=== PATIENT | male | born 1960 | race American Indian/Alaskan Native ===

== ENCOUNTER 2018-02-06 05:57 | Day surgery (SDC) | payer OTHER ==
[2018-02-06] MEDS ORDERED: WATER FOR IRRIG STERILE IR ONE (07:08)
[2018-02-06] MEDS ORDERED: WATER FOR IRRIG STERILE ONE (07:08)
--- NOTE | 2018-02-06 07:41 | Anesthesia Consultation ---
Anesthesia Consult and Med Hx Date of service: 02/06/18 - Airway Anesthetic Teeth Evaluation: Good ROM Head & Neck: Adequate Mental/Hyoid Distance: Adequate Mallampati Class: Class IV Intubation Access Assessment: Possibly Difficult - Pulmonary Exam CTA: Yes - Cardiac Exam Anesthetic Concerns: Irregular rhythm. Occasional premature beat. - Pre-Operative Health Status ASA Pre-Surgery Classification: ASA3 Proposed Anesthetic Plan: General - Pulmonary Hx Smoking: Yes Hx Asthma: Yes Hx Sleep Apnea: Yes - Cardiovascular System Hx Hypertension: Yes - Endocrine Hx Non-Insulin Dependent Diabetes: Yes (GX=[id number]) - Other Systems Hx Obesity: Yes (BMI>40) - Additional Comments Anesthesia Medical History Comments: NAC.
--- NOTE | 2018-02-06 07:42 | Anesthesia Day of Surgery ---
Anesthesia Day of Surgery - Day of Surgery Patient Examined: Yes Patient H&P Reviewed: Yes Patient is NPO: Yes Beta Blockers: Yes
[2018-02-06] MEDS ORDERED: DIPRIVAN 10 MG/ML IV ONE ×2 (07:47)
[2018-02-06] MEDS ORDERED: XYLOCAINE 2% INFILTRATI ONE (08:00)
[2018-02-06] MEDS ORDERED: NACL 0.9% 1000 ML 1,000 ML IV SCH (08:00)
--- NOTE | 2018-02-06 08:14 | Short Stay Summary ---
Short Stay Documentation - Allergies and Medications Current Medications: Allergies No Known Allergies Allergy (Verified 10/25/13 23:24) Home Medications Medication Instructions Recorded Confirmed Last Taken Type Metoprolol [Lopressor TAB] 100 mg PO BID #60 tablet 10/29/13 02/04/18 Rx Adult Low Dose Aspirin EC 81 mg PO DAILY 02/05/18 02/05/18 02/04/18 History AtorvaSTATin 20 mg PO DAILY 02/05/18 02/05/18 02/04/18 History Clotrimazole 3 mg PO 5XD 02/05/18 02/05/18 02/04/18 History Fluconazole 200 mg PO DAILY 02/05/18 02/05/18 02/04/18 History Glipizide 5 mg PO DAILY 02/05/18 02/06/18 02/05/18 History Metoprolol 100 mg PO BID 02/05/18 02/06/18 02/06/18 History Montelukast 10 mg PO DAILY 02/05/18 02/05/18 02/04/18 History amLODIPine 5 mg PO DAILY 02/05/18 02/05/18 02/04/18 History metFORMIN 1,000 mg PO BID 02/05/18 02/06/18 02/06/18 History Active Medications Sodium Chloride (Nacl 0.9% 1000 Ml) 1,000 mls @ 50 mls/hr IV DIRECT IMANI Last Admin: 02/06/18 07:40 Dose: 50 mls/hr - Brief post op/procedure progress note Date of procedure: 02/06/18 Pre-op diagnosis: Colon cancer screening Post-op diagnosis: same (1. Diverticulosis coli 2. Internal hemorrhoids 3. Poor prep) Procedure: Colonoscopy Anesthesia: MAC Findings: as above Surgeon: ROXY ESCOBAR Estimated blood loss: none Pathology: none Condition: stable - Disposition Condition at discharge: Stable Disposition: DC-01 TO HOME OR SELFCARE Short Stay Discharge Plan Activity: no restrictions Weight Bearing Status: Full Weight Bearing Diet: regular, low fat, low cholesterol, low salt Follow up with: WONG HENRY MD [Primary Care Provider] - 7 Days
[2018-02-06 08:53] VITALS: BP 139/83
== END 2018-02-06 05:58 | disposition home or self-care (01) ==
LOC: GIO 05:57
PROVIDERS: ATTEND Internal Medicine Gastroenterology
DX: Z12.11 Encounter for screening for malignant neoplasm of colon (principal); K64.0 First degree hemorrhoids; K57.30 Diverticulosis of large intestine without perforation or abscess without bleeding; I48.92 Unspecified atrial flutter; I25.2 Old myocardial infarction; I25.10 Atherosclerotic heart disease of native coronary artery without angina pectoris; E11.9 Type 2 diabetes mellitus without complications; E78.00 Pure hypercholesterolemia, unspecified; I10 Essential (primary) hypertension; J45.909 Unspecified asthma, uncomplicated; G47.30 Sleep apnea, unspecified; E66.9 Obesity, unspecified; Z68.41 Body mass index [BMI] 40.0-44.9, adult; Z79.899 Other long term (current) drug therapy; Z79.84 Long term (current) use of oral hypoglycemic drugs; Z87.891 Personal history of nicotine dependence
CPT/HCPCS: 45378; 82962; J2704; J7030

== ENCOUNTER 2018-09-13 11:34 | Inpatient (IN) | payer OTHER ==
[2018-09-13 11:59] LABS: Basophils # (Auto) 0.1 K/mm3 (0.0-0.1); Basophils % (Auto) 1.6 % (0.0-1.8); Eosinophils # (Auto) 0.3 K/mm3 (0.0-0.4); Eosinophils % (Auto) 3.4 % (0.0-4.3); Hematocrit 42.3 % (35.5-45.6); Hemoglobin 14.5 gm/dl (11.8-15.2); Lymphocytes # (Auto) 2.7 K/mm3 (1.2-5.4); Mean Corpuscular HGB Conc 34 % (32-34); Mean Corpuscular Volume 94 fl (84-94); Monocytes # (Auto) 0.8 K/mm3 (0.0-0.8); Monocytes % (Auto) 10.3 % (0.0-7.3); Platelet Count 232 K/mm3 (140-440); Red Blood Count 4.52 M/mm3 (3.65-5.03); Red Cell Distribution Width 14.2 % (13.2-15.2)
[2018-09-13] MEDS ORDERED: NORMODYNE IV ONE (12:04)
[2018-09-13 12:09] LABS: INR 0.95 (0.87-1.13)
[2018-09-13 12:10] LABS: Partial Thromboplastin Time 26.4 Sec. (24.2-36.6)
[2018-09-13] MEDS ORDERED: CARDIZEM IV ONE (12:23)
[2018-09-13 12:25] LABS: Alanine Aminotransferase 38 units/L (7-56); Albumin 3.8 g/dL (3.9-5); BUN/Creatinine Ratio 20; Blood Urea Nitrogen 16 mg/dL (9-20); Calcium 9.3 mg/dL (8.4-10.2); Hemolysis Index 26
--- NOTE | 2018-09-13 12:51 | Emergency Department Report ---
HPI - General Chief Complaint: Dyspnea/Respdistress Time Seen by Provider: 09/13/18 11:45 - HPI HPI: 58-year-old -[place]ian male presents to the emergency department with a complaint of shortness of breath, chest pain and palpitations starting yeste rday. The patient says that the symptoms worsened with any type of exertion. He states that he feels like he is choking when he lays down. The patient has a past medical history of asthma, diabetes, hypertension, previous NSTEMI and previous A-flutter. The patient was here about 4 years ago with similar symptoms and was found to have atrial flutter with RVR at that time and was eventually electrically cardioverted. The patient now follows with [facility] cardiology, Dr. Mcgraw. He did not take anything for his symptoms prior to presentation. No recent travel or sick contacts at home. Denies any tobacco or illicit drug use. ED Past Medical Hx - Past Medical History Hx Hypertension: Yes Hx Diabetes: Yes Hx Asthma: Yes - Surgical History Past Surgical History?: No - Social History Smoking Status: Never Smoker Substance Use Type: None - Medications Home Medications: Home Medications Medication Instructions Recorded Confirmed Last Taken Type Metoprolol [Lopressor TAB] 100 mg PO BID #60 tablet 10/29/13 09/13/18 02/05/18 Rx Adult Low Dose Aspirin EC 81 mg PO DAILY 02/05/18 09/13/18 02/04/18 History AtorvaSTATin 20 mg PO DAILY 02/05/18 09/13/18 02/05/18 History Glipizide 5 mg PO DAILY 02/05/18 09/13/18 02/05/18 History metFORMIN 1,000 mg PO BID 02/05/18 09/13/18 02/05/18 History Losartan Potassium 50 mg PO DAILY 02/06/18 09/13/18 02/05/18 History Amlodipine Besylate [Norvasc] 5 mg PO QDAY 09/13/18 09/13/18 Unknown History Fluticasone/Salmeterol [Advair 1 puff IH BID 09/13/18 09/13/18 09/13/18 History Diskus 250-50 mcg] ED Review of Systems ROS: Stated complaint: SOB Other details as noted in HPI Comment: All other systems reviewed and negative Constitutional: denies: chills, fever Eyes: denies: eye pain, vision change ENT: denies: ear pain, throat pain Respiratory: shortness of breath, SOB with exertion Cardiovascular: chest pain, palpitations Gastrointestinal: denies: abdominal pain, vomiting Genitourinary: denies: dysuria, discharge Musculoskeletal: denies: back pain, arthralgia Skin: denies: rash, lesions Neurological: denies: headache, weakness Physical Exam - Physical Exam Vital Signs: Vital Signs 09/13/18 09/13/18 09/13/18 11:42 12:10 12:16 Temperature 98.5 F Pulse Rate 162 H 161 H Respiratory 24 Rate Blood Pressure 178/119 181/128 O2 Sat by Pulse 98 98 Oximetry Physical Exam: GENERAL: The patient is well-developed well-nourished. HENT: Normocephalic. Atraumatic. Patient has moist mucous membranes. EYES: Extraocular motions are intact. Pupils equal reactive to light bilaterally. NECK: Supple. Trachea is midline. CHEST/LUNGS: Clear to auscultation. There is no respiratory distress noted. HEART/CARDIOVASCULAR: Regular. There is severe tachycardia. There is no murmur. ABDOMEN: Abdomen is soft, nontender. Patient has normal bowel sounds. Obese habitus. SKIN: Mild pitting edema to the bilateral lower extremities. NEURO: The patient is awake, alert, and oriented. The patient is cooperative. The patient has no focal neurologic deficits. The patient has normal speech. MUSCULOSKELETAL: There is no tenderness or deformity. There is no evidence of acute injury. ED Course Vital Signs 09/13/18 09/13/18 09/13/18 11:42 12:10 12:16 Temperature 98.5 F Pulse Rate 162 H 161 H Respiratory 24 Rate Blood Pressure 178/119 181/128 O2 Sat by Pulse 98 98 Oximetry ED Medical Decision Making - Lab Data Result diagrams: 09/13/18 11:49 09/13/18 11:49 - EKG Data -: EKG Interpreted by Me - EKG Data When compared to previous EKG there are: previous EKG unavailable Interpretation: other (atrial flutter with rate of 162 bpm, normal axis, prolonged QTC) - Radiology Data Radiology results: image reviewed interpreted by me: Chest x-ray shows some mild cardiomegaly and pulmonary vascular congestion. No pneumothorax. No obvious pneumonia. - Medical Decision Making This patient presents with chest pain, shortness of breath and palpitations. He was found to have a heart rate of about 160. At first it appeared consistent with an SVT but he did not respond to adenosine 6 and then 12 mg. I then tried labetalol but was only a very mild decrease in his heart rate. The patient was given a dose of Cardizem and his tachycardia resolved but he remained in atrial flutter. Patient's labs were mostly unremarkable except for some mild low magnesium level and slightly elevated proBNP. Chest x-ray shows some mild cardiomegaly and pulmonary vascular congestion but otherwise there is no signs of any pneumonia, pleural effusions, focal consolidation, pneumothorax, or any other acute process. I spoke with the core baker application penetration tester for [facility] agrees with the plan for admission, heparin and will see the patient has a cons ult. The patient has been accepted for admission by the hospitalist, Dr. Mora. - Differential Diagnosis dysrhythmia, CHF, PE, MA Critical Care Time: Yes Critical care time in (mins) excluding proc time.: 35 Critical care attestation.: If time is entered above; I have spent that time in minutes in the direct care of this critically ill patient, excluding procedure time. Critical care time was spent on this patient and during his initial evaluation, multiple re- evaluations, ordering an interpretation of labs and imaging, administration of cardiac medications, discussion with the core baker. Critical Care Time: 35 minutes ED Disposition Clinical Impression: Atrial flutter with rapid ventricular response, Tachyarrhythmia, Shortness of breath Disposition: 09 OP ADMIT IP TO THIS HOSP Is pt being admited?: Yes Condition: Serious Time of Disposition: 14:41
[2018-09-13] MEDS ORDERED: HEPARIN 10,000 UNITS/10 ML IV ONE (12:58)
--- NOTE | 2018-09-13 13:03 | History and Physical Report ---
History of Present Illness Chief complaint: My heart is beating fast, and it a little hard to breathe. History of present illness: 58 YO Male with HTN, DM, Obesity Hypoventilation, [place], Atrial Fib presents to ED for evaluation. Pt states that he has experienced chest palpitations, and shortness of breath over the past 1 day with persistent symptoms over the same time frame with worsening symptoms over the past 8 hours. Pt acknowledges chest discomfort associated with episodes of chest paliptations, Orthopnea/PND, Decreased exercise tolerance, as well as dypsnea on exertion. Pt denies fever, chills, CP, NVD, Trauma, syncope, BRBPR, prolonged travel/immobility, unilateral leg swelling, calf pain, individual/family history of DVT/PE/Blood Clotting Disorders, productive cough, recent ill contacts. Pt transported to [facility] via private vehicle. Pt seen and evaluated in ED and found to have Atrial Fib with RVR, Obesity Hypoventilation Syndrome, as well as symptoms consistent with CHF Decompensation. Pt admitted to telemetry. Cardiology consulted in ED. Prior visit on 10/26/13 reviewed. All listed medication reconciled at time of admission. Past History Past Medical History: diabetes, hypertension, other (Asthma, Obesity) Past Surgical History: No surgical history, Other (reviewed) Social history: . denies: smoking, alcohol abuse, prescription drug abuse Family history: hypertension Medications and Allergies Allergies Allergy/AdvReac Type Severity Reaction Status Date / Time No Known Allergies Allergy Verified 10/25/13 23:24 Home Medications Medication Instructions Recorded Confirmed Last Taken Type Metoprolol [Lopressor TAB] 100 mg PO BID #60 tablet 10/29/13 09/13/18 02/05/18 Rx Adult Low Dose Aspirin EC 81 mg PO DAILY 02/05/18 09/13/18 02/04/18 History AtorvaSTATin 20 mg PO DAILY 02/05/18 09/13/18 02/05/18 History Glipizide 5 mg PO DAILY 02/05/18 09/13/18 02/05/18 History metFORMIN 1,000 mg PO BID 02/05/18 09/13/18 02/05/18 History Losartan Potassium 50 mg PO DAILY 02/06/18 09/13/18 02/05/18 History Amlodipine Besylate [Norvasc] 5 mg PO QDAY 09/13/18 09/13/18 Unknown History Fluticasone/Salmeterol [Advair 1 puff IH BID 09/13/18 09/13/18 09/13/18 History Diskus 250-50 mcg] Active Meds: Active Medications Magnesium Sulfate 1 gm/ Sodium (Chloride) 52 mls @ 52 mls/hr IV ONCE ONE Stop: 09/13/18 14:26 Heparin Sodium/Sodium Chloride (Heparin/ 0.45% Nacl-25,000 Unit/500 Ml) 25,000 unit in 500 mls @ 39.463 mls/hr IV TITR IMANI; Protocol Review of Systems Constitutional: no weight loss, no weight gain, no fever, no chills Ears, nose, mouth and throat: no ear pain, no ear discharge, no tinnitis, no decreased hearing, no nose pain Cardiovascular: orthopnea, palpitations, shortness of breath, dyspnea on exertion, decreased exercise tolerance, no chest pain, no claudication, no phlebitis, no high blood pressure Respiratory: no cough, no cough with sputum, no excessive sputum, no hemoptysis Gastrointestinal: no nausea, no vomiting, no diarrhea, no constipation, no change in bowel habits Genitourinary Male: no hematuria, no flank pain, no discharge, no urinary frequency, no urinary hesitancy Musculoskeletal: no neck pain, no shooting arm pain, no arm numbness/tingling, no low back pain, no leg numbness/tingling Integumentary: no rash, no pruritis, no redness, no sores, no wounds Neurological: no paralysis, no weakness, no parathesias, no numbness, no tingling, no seizures Psychiatric: no anxiety, no memory loss, no change in sleep habits, no sleep d isturbances, no insomnia, no change in appetite Endocrine: no cold intolerance, no heat intolerance, no polyphagia, no excessive thirst, no polydipsia, no polyuria Hematologic/Lymphatic: no easy bruising, no easy bleeding, no lymphadenopathy Allergic/Immunologic: no urticaria, no persistent infections, no anaphylaxis, no angioedema Exam - Constitutional Vitals: Temp Pulse Resp BP Pulse Ox 98.5 F 161 H 24 181/128 98 09/13/18 11:42 09/13/18 12:10 09/13/18 11:42 09/13/18 12:10 05/18/19 12:16 General appearance: Present: mild distress, obese - EENT Eyes: Present: PERRL ENT: hearing intact, clear oral mucosa - Neck Neck: Present: supple, normal ROM - Respiratory Respiratory effort: normal Respiratory: bilateral: CTA - Cardiovascular Rhythm: irregularly irregular Heart Sounds: Present: S1 & S2. Absent: rub, click - Extremities Extremities: pulses symmetrical Extremity abnormal: edema Peripheral Pulses: within normal limits - Abdominal General gastrointestinal: Present: soft, non-tender, non-distended, normal bowel sounds Male genitourinary: Present: normal - Integumentary Integumentary: Present: clear, warm, dry - Musculoskeletal Musculoskeletal: gait normal, strength equal bilaterally - Psychiatric Psychiatric: appropriate mood/affect, intact judgment & insight - Neurologic Neurologic: CNII-XII intact, moves all extremities Results - Labs CBC & Chem 7: 09/13/18 11:49 09/13/18 11:49 Labs: Abnormal lab results 09/13/18 09/13/18 Range/Units 11:49 11:49 [place] % (Auto) 10.3 H (0.0-7.3) % Glucose 213 H (75-100) mg/dL Magnesium 1.60 L (1.7-2.3) mg/dL Albumin 3.8 L (3.9-5) g/dL Assessment and Plan - Patient Problems (1) Atrial flutter with rapid ventricular response Current Visit: Yes Status: Acute Plan to address problem: Pt S/P medical cardioversion in ED, initiate cacium channel wood therapy for rate control, therapeutic anticoagulation. , (2) Obesity hypoventilation syndrome Current Visit: Yes Status: Acute Plan to address problem: Supplemental oxygen, NIPPV as clinically indicated, pulse oximetry, nebulizer therapy. (3) Diabetes Current Visit: Yes Status: Acute Plan to address problem: ADA diet, insulin, accu check, hypoglycemia protocol (4) HTN (hypertension) Current Visit: Yes Status: Acute Qualifiers: Hypertension type: essential hypertension Qualified Code(s): I10 - Essential (primary) hypertension Plan to address problem: Monitor BP q shift, continue current therapy, continue medical management. (5) CHF (congestive heart failure) Current Visit: Yes Status: Acute Qualifiers: Heart failure type: diastolic Plan to address problem: Admit to telemetry, cardiology consulted in ED, d dimer, bnp, Echo, strict I/O, daily weight, monitor uop q shift, thyroid panel, supplementla oxygen, afterload reduction, blood pressure control. (6) Right shoulder pain Current Visit: Yes Status: Acute Qualifiers: Chronicity: chronic Qualified Code(s): M25.511 - Pain in right shoulder; G89.29 - Other chronic pain Plan to address problem: X ray, right shoulder. (7) DVT prophylaxis Current Visit: Yes Status: Acute Plan to address problem: SCD to BLE while in bed, continue therapeutic heparin
[2018-09-13] MEDS ORDERED: PROVENTIL IH PRN (13:08)
[2018-09-13] MEDS ORDERED: ZOFRAN IV PRN (13:08)
[2018-09-13] MEDS ORDERED: TYLENOL PO PRN (13:08)
[2018-09-13] MEDS ORDERED: SODIUM CHLORIDE FLUSH SYRINGE 10 ML IV PRN (13:08)
[2018-09-13] MEDS ORDERED: MAGNESIUM SULFATE 1 GM in NACL 0.9% 50 ML IV ONE (13:27)
[2018-09-13] MEDS ORDERED: HEPARIN ONE (13:50)
[2018-09-13] MEDS ORDERED: HEPARIN/ 0.45% NACL-25,000 UNIT/500 ML 25,000 UNIT/500 ML BAG ONE (13:51)
[2018-09-13] MEDS ORDERED: HEPARIN 10,000 UNITS/10 ML ONE (13:54)
[2018-09-13] MEDS: HEPARIN/ 0.45% NACL-25,000 UNIT/500 ML 25,000 UNIT/500 ML BAG IV SCH (13:55)
[2018-09-13] MEDS ORDERED: CLOTRIMAZOLE PO SCH (14:00)
--- NOTE | 2018-09-13 15:00 | Consultation ---
History of Present Illness Consult date: 09/13/18 Consult reason: other (Atrial flutter with rapid VR.) History of present illness: Patient presented to the emergency room with complaints of shortness of breath which is increasing for last few days, along with some sharp chest pains and also rapid heartbeat. He was evaluated in the emergency room and was found to be atrial flutter with rapid VR. Patient was given IV adenosine and IV labetalol but heart rate is still elevated hence admitted to the monitored bed for further management. Patient being followed in our office for last 6 months. Past History Past Medical History: diabetes, hypertension, hyperlipidemia, other (asthma and sleep apnea,obesity.) Medications and Allergies Allergies Allergy/AdvReac Type Severity Reaction Status Date / Time No Known Allergies Allergy Verified 10/25/13 23:24 Home Medications Medication Instructions Recorded Confirmed Last Taken Type Metoprolol [Lopressor TAB] 100 mg PO BID #60 tablet 10/29/13 09/13/18 02/05/18 Rx Adult Low Dose Aspirin EC 81 mg PO DAILY 02/05/18 09/13/18 02/04/18 History AtorvaSTATin 20 mg PO DAILY 02/05/18 09/13/18 02/05/18 History Glipizide 5 mg PO DAILY 02/05/18 09/13/18 02/05/18 History metFORMIN 1,000 mg PO BID 02/05/18 09/13/18 02/05/18 History Losartan Potassium 50 mg PO DAILY 02/06/18 09/13/18 02/05/18 History Amlodipine Besylate [Norvasc] 5 mg PO QDAY 09/13/18 09/13/18 Unknown History Fluticasone/Salmeterol [Advair 1 puff IH BID 09/13/18 09/13/18 09/13/18 History Diskus 250-50 mcg] Active Meds: Active Medications Acetaminophen (Tylenol) 650 mg PO Q4H PRN PRN Reason: Pain MILD(1-3)/Fever >100.5/BERUMEN Albuterol (Proventil) 2.5 mg IH Q4H PRN PRN Reason: Shortness Of Breath Aspirin (Baby Aspirin) 81 mg PO QDAY IMANI Atorvastatin Calcium (Lipitor) 20 mg PO QHS IMANI Diltiazem HCl (Cardizem) 90 mg PO Q8HR IMANI Heparin Sodium/Sodium Chloride (Heparin/ 0.45% Nacl-25,000 Unit/500 Ml) 25,000 unit in 500 mls @ 30 mls/hr IV TITR IMANI; Protocol Last Admin: 09/13/18 13:55 Dose: 1,500 units/hr, 30 mls/hr Documented by: Losartan Potassium (Cozaar) 50 mg PO QDAY [facility] Metoprolol Tartrate (Lopressor) 100 mg PO BID IMANI Miscellaneous Medication (Calcium) 200 mg PO BID [facility] Miscellaneous Medication (Clotrimazole) 3 mg PO 5XD IMANI Montelukast Sodium (Singulair) 10 mg PO QHS [facility] Ondansetron HCl (Zofran) 4 mg IV Q8H PRN PRN Reason: Nausea And Vomiting Sodium Chloride (Sodium Chloride Flush Syringe 10 Ml) 10 ml IV BID IMANI Sodium Chloride (Sodium Chloride Flush Syringe 10 Ml) 10 ml IV PRN PRN PRN Reason: LINE FLUSH Review of Systems Constitutional: no weight loss Ears, nose, mouth and throat: no ear discharge Cardiovascular: chest pain, palpitations, dyspnea on exertion, high blood pressure Respiratory: no cough, no wheezing Gastrointestinal: no abdominal pain Genitourinary Male: no hematuria Musculoskeletal: no neck stiffness Integumentary: no rash Neurological: no seizures Psychiatric: no anxiety Endocrine: no cold intolerance Physical Examination Vital Signs Temp Pulse Resp BP Pulse Ox 98.5 F 162 H 24 178/119 98 09/13/18 11:42 09/13/18 11:42 09/13/18 11:42 09/13/18 11:42 09/13/18 11:42 Narrative exam: Obese,in NAD General appearance: no acute distress HEENT: Positive: PERRL Neck: Positive: trachea midline Cardiac: Positive: irregularly irregular, S1/S2. Negative: Audible Murmur Lungs: Positive: Decreased Breath Sounds Neuro: Positive: Grossly Intact Abdomen: Positive: Soft, Other (obese.) Male genitourinary: Positive: deferred Skin: Negative: Rash Extremities: Absent: edema Results 09/13/18 11:49 09/13/18 11:49 Cardiac Enzymes 09/13/18 Range/Units 11:49 AST 34 (5-40) units/L Coagulation 09/13/18 Range/Units 11:49 PT 13.3 (12.2-14.9) Sec. INR 0.95 (0.87-1.13) APTT 26.4 (24.2-36.6) Sec. CBC 09/13/18 Range/Units 11:49 WBC 8.3 (4.5-11.0) K/mm3 RBC 4.52 (3.65-5.03) M/mm3 Hgb 14.5 (11.8-15.2) gm/dl Hct 42.3 (35.5-45.6) % Plt Count 232 (140-440) K/mm3 Lymph # 2.7 (1.2-5.4) K/mm3 [place] # 0.8 (0.0-0.8) K/mm3 Eos # 0.3 (0.0-0.4) K/mm3 Baso # 0.1 (0.0-0.1) K/mm3 Comprehensive Metabolic Panel 09/13/18 Range/Units 11:49 Sodium 139 (137-145) mmol/L Potassium 4.1 (3.6-5.0) mmol/L Chloride 99.6 (98-107) mmol/L Carbon Dioxide 26 (22-30) mmol/L BUN 16 (9-20) mg/dL Creatinine 0.8 (0.8-1.5) mg/dL Glucose 213 H (75-100) mg/dL Calcium 9.3 (8.4-10.2) mg/dL AST 34 (5-40) units/L ALT 38 (7-56) units/L Alkaline Phosphatase 98 (35-129) units/L Total Protein 7.5 (6.3-8.2) g/dL Albumin 3.8 L (3.9-5) g/dL - Imaging and Cardiology EKG: other (atrial flutter with rapid VR.) EKG interpretations - Telemetry EKG Rhythm: Atrial Flutter Assessment and Plan 58-year-old diaphragm can gentleman presented to the emergency room with the increasing shortness of breath of a few days duration along with some sharp chest pains. Patient was noted to be in atrial flutter with rapid went clear response. He was given IV Adenosine and IV labetalol and still heart rate is elevated. Because of increased heart rate, he was admitted for further management. Patient complains of some sharp chest pains which are very transient, not related to exertion but states he can't walk much he gets short of breath easily. Because of these multiple problems he was admitted for further management. 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 He also has a history of hypertension and hyperlipidemia and diabetes mellitus being followed by recently according to the patient. Patient is pain-free at this time. Will get serial EKGs and enzymes. Will control the heart rate with PO medications and also try IV Cardizem for control of heart rate. Monitor in telemetry. He appears to be comfortable. Considering his shortness of breath we'll get an echocardiogram for further evaluation and review his office records. - Patient Problems (1) Sleep apnea Current Visit: Yes Status: Acute (2) Atrial flutter with rapid ventricular response Current Visit: Yes Status: Acute (3) Shortness of breath Current Visit: Yes Status: Acute (4) Chest pain Current Visit: No Status: Acute (5) Hypertension Current Visit: Yes Status: Acute
--- NOTE | 2018-09-13 15:02 | XRay Report ---
PROCEDURE: XR CHEST 1V AP TECHNIQUE: Chest radiograph, AP portable upright view. HISTORY: Chest Pain COMPARISONS: None currently available. FINDINGS: Moderate to marked cardiomegaly. Prominent bilateral central pulmonary markings. Perihilar airspace opacities which appear more promin ent in both lower lobes. No pneumothorax. No distinct consolidation. No effusion. There are no suspicious osseous lesions. IMPRESSION: * Pulmonary findings may represent pneumonia (possibly viral), bronchiolitis/bronchitis, or pulmonar y vascular congestion. Pulmonary vascular congestion favored. This document is electronically signed by Panda Robles MD., Sep 13 2018 03:00:47 PM ET
[2018-09-13] MEDS: CARDIZEM PO SCH ×2 (15:22→22:24)
[2018-09-13] MEDS: PERCOCET 5/325 PO PRN (19:42)
[2018-09-13] MEDS: SINGULAIR PO SCH (21:45)
[2018-09-13] MEDS: LOPRESSOR PO SCH (21:45)
[2018-09-13] MEDS: SODIUM CHLORIDE FLUSH SYRINGE 10 ML IV SCH (21:47)
[2018-09-13] MEDS ORDERED: NON-FORMULARY (Metoprolol 100 MG) PO SCH (22:00)
[2018-09-13] MEDS ORDERED: CALCIUM 200 MG PO SCH (22:00)
--- NOTE | 2018-09-13 22:55 | XRay Report ---
PROCEDURE: RIGHT SHOULDER, 3 OR MORE VIEWS TECHNIQUE: RIGHT shoulder radiographs including AP views in internal and external rotation and abduc tion. CPT 14380 HISTORY: Trauma COMPARISONS: None . FINDINGS: Fracture (s) and/or Dislocation(s): None . Joint space(s): Normal . Soft tissues: Normal . Bone mineralization: Normal . Foreign bodies: None . IMPRESSION: Normal Examination . This document is electronically signed by Jamal Chiang MD., Sep 13 2018 10:53:32 PM ET
[2018-09-14 00:34] LABS: Amphetamine Screen,Urine PRESUMPTIVE NEGATIVE; Benzodiazepines Screen,Urine PRESUMPTIVE NEGATIVE; Cannabinoid Screen,Urine PRESUMPTIVE NEGATIVE; Cocaine Screen,Urine PRESUMPTIVE NEGATIVE; Methadone Screen,Urine PRESUMPTIVE NEGATIVE; Opiate Screen,Urine PRESUMPTIVE NEGATIVE
[2018-09-14] MEDS: PERCOCET 5/325 PO PRN ×4 (02:03→21:32)
[2018-09-14] MEDS: CARDIZEM PO SCH ×3 (06:34→21:33)
[2018-09-14 09:25] LABS: Chol/HDL Ratio 3.39 %
[2018-09-14] MEDS: COZAAR PO SCH (09:38)
[2018-09-14] MEDS: LOPRESSOR PO SCH ×2 (09:38→21:32)
[2018-09-14] MEDS: BABY ASPIRIN PO SCH (09:39)
[2018-09-14] MEDS ORDERED: LOSARTAN POTASSIUM 50 MG PO SCH (10:00)
[2018-09-14] MEDS ORDERED: NON-FORMULARY (Adult Low Dose Aspirin Ec 81 MG) PO SCH (10:00)
[2018-09-14] MEDS ORDERED: NON-FORMULARY (Montelukast 10 MG) PO SCH (10:00)
[2018-09-14] MEDS ORDERED: NON-FORMULARY (Atorvastatin 20 MG) PO SCH (10:00)
--- NOTE | 2018-09-14 13:29 | Progress Note ---
Assessment and Plan / Atrial flutter with rapid ventricular response Pt S/P medical cardioversion in ED, initiated cacium channel wood therapy for rate control, therapeutic anticoagulation with heparin drip. , 2d echo showed Ef 30-35%, stress test tomorrow / sleep apnea with possible Obesity hypoventilation syndrome Supplemental oxygen, NIPPV as clinically indicated, pulse oximetry, nebulizer therapy. / Diabetes type 2 ADA diet, insulin, accu check, hypoglycemia protocol / HTN (hypertension) Monitor BP q shift, continue current therapy, continue medical management. / CHF (congestive heart failure) Ef 30-35% strict I/O, daily weight, monitor uop q shift, thyroid panel, supplementla oxygen, afterload reduction, blood pressure control. stress test tomorrow / Right shoulder pain X ray, right shoulder showed no fracture. / DVT prophylaxis SCD to BLE while in bed, continue therapeutic heparin Subjective Date of service: 09/14/18 Interval history: Patient seen and examined no chests pain today, feels better tolerating diet Objective - Constitutional Vitals: Vital Signs - 12hr 09/14/18 09/14/18 09/14/18 04:03 04:20 06:34 Temperature 97.9 F Pulse Rate 64 74 111 H Respiratory 16 Rate Blood Pressure 132/104 132/104 O2 Sat by Pulse 94 Oximetry 09/14/18 08:52 Temperature 97.6 F Pulse Rate 94 H Respiratory 20 Rate Blood Pressure 150/93 O2 Sat by Pulse 93 Oximetry General appearance: Present: no acute distress, well-nourished - EENT Eyes: PERRL, EOM intact ENT: hearing intact, clear oral mucosa Ears: bilateral: normal - Neck Neck: supple, normal ROM - Respiratory Respiratory effort: normal Respiratory: bilateral: CTA - Cardiovascular Heart Sounds: Present: S1 & S2. Absent: gallop, rub Extremities: pulses intact, No edema, normal color, Full ROM - Gastrointestinal General gastrointestinal: Present: soft, non-tender, non-distended, normal bowel sounds - Integumentary Integumentary: clear, warm, dry - Musculoskeletal Musculoskeletal: 1, strength equal bilaterally - Neurologic Neurologic: moves all extremities - Psychiatric Psychiatric: memory intact, appropriate mood/affect, intact judgment & insight - Labs CBC & Chem 7: 09/15/18 04:02 09/15/18 04:02 Labs: Abnormal lab results 05/19/19 Range/Units 08:02 Troponin T 0.083 H D (0.00-0.029) ng/mL HDL Cholesterol 33 L (40-59) mg/dL
--- NOTE | 2018-09-14 15:20 | Progress Note ---
Assessment and Plan 58-year-old diaphragm can gentleman presented to the emergency room with the increasing shortness of breath of a few days duration along with some sharp chest pains. Patient was noted to be in atrial flutter with rapid went clear response. He was given IV Adenosine and IV labetalol and still heart rate is elevated. Because of increased heart rate, he was admitted for further management. Patient complains of some sharp chest pains which are very transient, not related to exertion but states he can't walk much he gets short of breath easily. Because of these multiple problems he was admitted for further management. 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 He also has a history of hypertension and hyperlipidemia and diabetes mellitus being followed by recently according to the patient. Patient is pain-free at this time. Will get serial EKGs and enzymes. Will control the heart rate with PO medications and also try IV Cardizem for control of heart rate. Monitor in telemetry. He appears to be comfortable. Considering his shortness of breath we'll get an echocardiogram for further evaluation and review his office records. 09/14/2018>Patient continues to be in atrial flutter with controlled VR,did not have ischemic evaluation in past few years.Continue iv heparin ,schedule forpharmacologic MPI in AM.?consider cardioversion. - Patient Problems (1) Sleep apnea Current Visit: Yes Status: Acute (2) Atrial flutter with rapid ventricular response Current Visit: Yes Status: Acute (3) Shortness of breath Current Visit: Yes Status: Acute (4) Chest pain Current Visit: No Status: Acute (5) Hypertension Current Visit: Yes Status: Acute Subjective Date of service: 09/14/18 Interval history: Patient feels better,still has occassional palpitations,and minimal chest discomfort. Objective Vital Signs Temp Pulse Resp BP Pulse Ox 09/14/18 14:46 102 H 09/14/18 08:52 97.6 F 94 H 20 150/93 93 09/14/18 06:34 111 H 132/104 09/14/18 04:20 74 09/14/18 04:03 97.9 F 64 16 132/104 94 09/13/18 23:31 98.3 F 52 L 18 152/97 88 09/13/18 22:24 114 H 148/95 09/13/18 21:45 118 H 148/95 09/13/18 19:29 98.3 F 88 19 148/95 91 09/13/18 19:25 78 09/13/18 17:52 98.5 F 09/13/18 17:50 83 20 137/94 94 09/13/18 15:22 118 H 131/87 - Physical Examination Narrative exam: Obese,in NAD HEENT: Positive: PERRL Neck: Positive: trachea midline Cardiac: Positive: Regular Rhythm Lungs: Positive: Decreased Breath Sounds Neuro: Positive: Grossly Intact Abdomen: Positive: Soft, Other (obese.) Skin: Negative: Rash Extremities: Absent: edema - Labs and Meds Lipids 09/14/18 Range/Units 08:02 Triglycerides 102 (2-149) mg/dL Cholesterol 112 (50-199) mg/dL HDL Cholesterol 33 L (40-59) mg/dL Cholesterol/HDL Ratio 3.39 % - Imaging and Cardiology EKG: other (atrial flutter with rapid VR.)
[2018-09-14] MEDS: SODIUM CHLORIDE FLUSH SYRINGE 10 ML IV SCH ×2 (16:22→21:33)
[2018-09-14] MEDS: SINGULAIR PO SCH (21:32)
[2018-09-14] MEDS: BROVANA NEBU IH SCH (21:57)
[2018-09-14] MEDS: PULMICORT IH SCH (21:57)
[2018-09-14] MEDS ORDERED: NON-FORMULARY (Fluticasone/Salmeterol [Advair Diskus 250-50 Mcg] 1 PUFF) IH SCH (22:00)
[2018-09-15] MEDS: HEPARIN/ 0.45% NACL-25,000 UNIT/500 ML 25,000 UNIT/500 ML BAG IV SCH (00:29)
[2018-09-15 04:28] LABS: Hematocrit 41.3 % (35.5-45.6); Hemoglobin 13.9 gm/dl (11.8-15.2)
[2018-09-15 04:49] LABS: BUN/Creatinine Ratio 15; Blood Urea Nitrogen 12 mg/dL (9-20); Calcium 8.8 mg/dL (8.4-10.2); Hemolysis Index 29
[2018-09-15] MEDS: CARDIZEM PO SCH ×3 (05:03→22:23)
[2018-09-15] MEDS: HumuLIN R SUB-Q SCH ×4 (09:41→22:21)
[2018-09-15] MEDS ORDERED: LEXISCAN IV ONE ×2 (09:54→10:00)
--- NOTE | 2018-09-15 11:13 | Progress Note ---
Assessment and Plan 58-year-old gentleman presented to the emergency room with the increasing shortness of breath of a few days duration along with some sharp chest pains. Patient was noted to be in atrial flutter with RVR. He was given IV Adenosine and IV labetalol but heart rate remained elevated and thus he was admitted for further management. Patient complains of some sharp chest pains which are very transient, not related to exertion but states he can't walk much he gets short of breath easily. 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 Serena Moreau. He also has a history of HTN, HLP and DM. Patient is pain-free at this time. He remains in AFlutter with CVR, on PO cardizem, PO lopressor and heparin gtt. Echo reviewed - EF 35-40%, mod LVH, RV systolic function mildly reduced. No prior echos in our office for comparison. Initiate IV lasix in setting of acute HFrEF. Replete Mg and repeat BMP and Mg in AM. Proceed with lexiscan MPI stress test today, await findings. The patient has been seen in conjunction with Dr. Ng who agrees with the assessment and plan of care. - Patient Problems (1) Atrial flutter with rapid ventricular response Current Visit: Yes Status: Acute (2) Acute HFrEF (heart failure with reduced ejection fraction) Current Visit: Yes Status: Acute (3) Cardiomyopathy Current Visit: Yes Status: Chronic (4) Chest pain Current Visit: Yes Status: Acute (5) HTN (hypertension) Current Visit: Yes Status: Chronic Qualifiers: Hypertension type: essential hypertension Qualified Code(s): I10 - Essential (primary) hypertension (6) Hyperlipidemia Current Visit: Yes Status: Chronic (7) Diabetes Current Visit: Yes Status: Chronic (8) Sleep apnea Current Visit: Yes Status: Chronic (9) Elevated troponin Current Visit: Yes Status: Acute (10) Obesity Current Visit: Yes Status: Chronic Subjective Date of service: 09/15/18 Principal diagnosis: AFlutter; SOB; cp Interval history: pt for stress test today. no current cardiac complaints. in AFlutter with CVR on tele. Objective Last Vital Signs Temp 97.8 F 09/15/18 08:23 Pulse 79 05/20/19 08:08 Resp 20 09/15/18 08:23 BP 136/96 09/15/18 08:23 Pulse Ox 93 09/15/18 05:02 - Physical Examination General: No Apparent Distress HEENT: Positive: PERRL Neck: Positive: trachea midline Cardiac: Positive: irregularly irregular, S1/S2 Lungs: Positive: Decreased Breath Sounds Neuro: Positive: Grossly Intact Abdomen: Positive: Soft, Other (obese.) Skin: Negative: Rash Extremities: Absent: edema - Labs and Meds CBC 09/15/18 Range/Units 04:02 Hgb 13.9 (11.8-15.2) gm/dl Hct 41.3 (35.5-45.6) % Plt Count 227 (140-440) K/mm3 Comprehensive Metabolic Panel 09/15/18 Range/Units 04:02 Sodium 138 (137-145) mmol/L Potassium 3.9 (3.6-5.0) mmol/L Chloride 99.6 (98-107) mmol/L Carbon Dioxide 27 (22-30) mmol/L BUN 12 (9-20) mg/dL Creatinine 0.8 (0.8-1.5) mg/dL Glucose 214 H (75-100) mg/dL Calcium 8.8 (8.4-10.2) mg/dL - Imaging and Cardiology EKG: other (atrial flutter with rapid VR.)
[2018-09-15] MEDS ORDERED: MAGNESIUM SULFATE 2GM/50ML 2 GM/50 ML BAG IV ONE (11:36)
[2018-09-15] MEDS: PULMICORT IH SCH ×2 (12:44→20:11)
[2018-09-15] MEDS: BROVANA NEBU IH SCH ×2 (12:44→20:11)
[2018-09-15] MEDS: COZAAR PO SCH (12:45)
[2018-09-15] MEDS: LOPRESSOR PO SCH ×2 (12:47→22:20)
[2018-09-15] MEDS: BABY ASPIRIN PO SCH (12:47)
[2018-09-15] MEDS: SODIUM CHLORIDE FLUSH SYRINGE 10 ML IV SCH ×2 (12:47→22:26)
--- NOTE | 2018-09-15 14:05 | Progress Note ---
Assessment and Plan / Atrial flutter with rapid ventricular response Pt S/P medical cardioversion in ED, initiated cacium channel wood therapy for rate control, therapeutic anticoagulation with heparin drip. 2d echo showed Ef 30-35%, s/p stress test today - pending result placed on eliquis today / sleep apnea with possible Obesity hypoventilation syndrome cont Supplemental oxygen, NIPPV as clinically indicated, pulse oximetry, nebulizer therapy. / Diabetes type 2 cont ADA diet, insulin, accu check, hypoglycemia protocol / HTN (hypertension) Monitor BP q shift, continue current therapy, continue medical management. / CHF (congestive heart failure) Ef 30-35% strict I/O, daily weight, monitor uop q shift, supplementla oxygen, afterload reduction, blood pressure control. s/p stress test today, started on iv lasix / Right shoulder pain X ray, right shoulder showed no fracture. / DVT prophylaxis SCD to BLE while in bed, continue therapeutic heparin Disposition: when clinically stable and cleared by cardiology Brief History: Patient presented to the emergency room with complaints of shortness of breath which is increasing for last few days, along with some sharp chest pains and also rapid heartbeat. Subjective Date of service: 09/15/18 Principal diagnosis: AFlutter; SOB; cp Interval history: Patient seen and examined no chest pain today, feels better s/p stress test today Objective - Exam Narrative Exam: General appearance: Present: no acute distress, well-nourished - EENT Eyes: PERRL, EOM intact ENT: hearing intact, clear oral mucosa Ears: bilateral: normal - Neck Neck: supple, normal ROM - Respiratory Respiratory effort: normal Respiratory: bilateral: CTA - Cardiovascular Heart Sounds: Present: S1 & S2. Absent: gallop, rub Extremities: pulses intact, No edema, normal color, Full ROM - Gastrointestinal General gastrointestinal: Present: soft, non-tender, non-distended, normal bowel sounds - Integumentary Integumentary: clear, warm, dry - Musculoskeletal Musculoskeletal: 1, strength equal bilaterally - Neurologic Neurologic: moves all extremities - Psychiatric Psychiatric: memory intact, appropriate mood/affect, intact judgment & insight - Constitutional Vitals: Vital Signs - 12hr 09/15/18 09/15/18 09/15/18 05:02 05:03 08:08 Temperature 97.7 F Pulse Rate 75 74 76 Pulse Rate [ 79 Right Radial] Respiratory 20 22 Rate Blood Pressure 135/101 135/101 O2 Sat by Pulse 93 Oximetry 09/15/18 09/15/18 09/15/18 08:23 10:45 10:49 Temperature 97.8 F Pulse Rate Pulse Rate [ Right Radial] Respiratory 20 Rate Blood Pressure 136/96 152/104 146/104 O2 Sat by Pulse Oximetry 09/15/18 09/15/18 09/15/18 11:03 11:06 11:08 Temperature Pulse Rate Pulse Rate [ Right Radial] Respiratory Rate Blood Pressure 149/110 148/103 166/100 O2 Sat by Pulse Oximetry 09/15/18 09/15/18 09/15/18 11:09 11:12 12:45 Temperature Pulse Rate 100 H Pulse Rate [ Right Radial] Respiratory Rate Blood Pressure 161/103 159/103 150/100 O2 Sat by Pulse Oximetry - Labs CBC & Chem 7: 09/15/18 04:02 09/15/18 04:02 Labs: Abnormal lab results 09/14/18 09/14/18 09/15/18 Range/Units 19:22 21:35 04:02 Heparin Anti-Xa Level 0.23 L (0.3-0.7) U.I./ml Glucose 214 H (75-100) mg/dL POC Glucose 194 H (70-105) Hemoglobin A1c (4-6) % 09/15/18 09/15/18 09/15/18 Range/Units 04:02 07:03 12:44 Heparin Anti-Xa Level 0.21 L (0.3-0.7) U.I./ml Glucose (75-100) mg/dL POC Glucose 197 H 184 H (70-105) Hemoglobin A1c (4-6) % 09/15/18 Range/Units 12:52 Heparin Anti-Xa Level (0.3-0.7) U.I./ml Glucose (75-100) mg/dL POC Glucose (70-105) Hemoglobin A1c 7.3 H (4-6) %
[2018-09-15] MEDS: PERCOCET 5/325 PO PRN (14:24)
[2018-09-15] MEDS: LASIX IV SCH (17:03)
[2018-09-15] MEDS: ELIQUIS PO SCH (22:20)
[2018-09-15] MEDS: SINGULAIR PO SCH (22:20)
--- NOTE | 2018-09-16 01:27 | Treadmill Report ---
NUCLEAR CARDIAC IMAGING REPORT INDICATION FOR PROCEDURE: Congestive heart failure. CONSENT: Informed consent was obtained. Rest and stress nuclear cardiac imaging was performed following the intravenous administration of 10 and 28 mCi of technetium 99m Myoview per protocol. Vasodilator stress was achieved with the intravenous administration of 0.4 mg of Lexiscan per protocol. Images were acquired in a 180-degree arc from 45 degrees BARNES to 45 degrees LPO. After data acquisition and reconstruction, the images were processed and reoriented into the vertical long, horizontal long, and horizontal short axis slices. A polar color map of the horizontal short axis slices was generated and reviewed. The rotating planar images reviewed in cinematic format on the computer console. Gated SPECT imaging demonstrates a post-stress left ventricular ejection fraction of 31%. The left ventricle is diffusely hypokinetic. Myocardial perfusion imaging demonstrates no significant cavity change between stress and rest. There is a small mild persistent inferoapical perfusion defect that appears to be more pronounced on the resting acquisition. This defect is likely artifactual in origin. No significant stress induced reversible perfusion abnormalities were seen. Nuclear cardiac imaging demonstrates moderately moderately severe post-stress left ventricular systolic dysfunction with no significant evidence for myocardial ischemia or necrosis. JOB# [id number] [facility]
[2018-09-16 05:55] LABS: Hemolysis Index 3
[2018-09-16] MEDS: LASIX IV SCH (05:55)
[2018-09-16] MEDS: CARDIZEM PO SCH (05:55)
[2018-09-16 06:28] LABS: BUN/Creatinine Ratio 20; Blood Urea Nitrogen 14 mg/dL (9-20)
[2018-09-16] MEDS: PULMICORT IH SCH (09:16)
[2018-09-16] MEDS: BROVANA NEBU IH SCH (09:16)
[2018-09-16] MEDS: ELIQUIS PO SCH (09:53)
[2018-09-16] MEDS: BABY ASPIRIN PO SCH (09:53)
[2018-09-16] MEDS: LOPRESSOR PO SCH (09:54)
[2018-09-16] MEDS: SODIUM CHLORIDE FLUSH SYRINGE 10 ML IV SCH (09:56)
[2018-09-16] MEDS: COZAAR PO SCH (09:56)
[2018-09-16] MEDS: HumuLIN R SUB-Q SCH ×2 (10:22→12:44)
--- NOTE | 2018-09-16 10:34 | Progress Note ---
Assessment and Plan Currently stable cardiac status. We were attempting to wean off cardizem in setting of CMP, however, pt noted to have brief bouts of AFlutter with RVR overnight. Will increase cardizem dosage back to 90mg TID and cont lopressor 100mg BID. Cont losartan, cont Eliquis. Currently stable cardiac status. Pt may discharge home from cardiology standpoint. At discharge, recommend PO lasix 40mg daily. Recommend pt follow up in our office with Dr. Moreau within 3-5 days of hospital discharge ([phone]). The patient has been seen in conjunction with Dr. Ng who agrees with the assessment and plan of care. - Patient Problems (1) Atrial flutter with rapid ventricular response Current Visit: Yes Status: Acute (2) Acute HFrEF (heart failure with reduced ejection fraction) Current Visit: Yes Status: Acute (3) Cardiomyopathy Current Visit: Yes Status: Chronic Plan to address problem: presumably nonischemic - lexiscan MPI stress test 09/15/2018 negative for ischemia (4) Chest pain Current Visit: Yes Status: Resolved (5) HTN (hypertension) Current Visit: Yes Status: Chronic Qualifiers: Hypertension type: essential hypertension Qualified Code(s): I10 - Essential (primary) hypertension (6) Hyperlipidemia Current Visit: Yes Status: Chronic (7) Diabetes Current Visit: Yes Status: Chronic (8) Sleep apnea Current Visit: Yes Status: Chronic (9) Elevated troponin Current Visit: Yes Status: Acute (10) Obesity Current Visit: Yes Status: Chronic Subjective Date of service: 09/16/18 Principal diagnosis: AFlutter; SOB; cp Interval history: pt resting in bed. no current cardiac complaints, states he is feeling well today. in AFlutter with CVR on tele, some bouts of RVR noted overnight. Objective Last Vital Signs Temp 97.5 F L 09/16/18 06:08 Pulse 87 09/16/18 10:00 Resp 16 09/16/18 09:19 BP 152/103 09/16/18 06:08 Pulse Ox 99 09/16/18 09:12 - Physical Examination General: No Apparent Distress HEENT: Positive: PERRL Neck: Positive: trachea midline Cardiac: Positive: irregularly irregular, S1/S2 Lungs: Positive: Decreased Breath Sounds Neuro: Positive: Grossly Intact Abdomen: Positive: Soft, Other (obese.) Skin: Negative: Rash Extremities: Absent: edema - Labs and Meds Comprehensive Metabolic Panel 09/16/18 Range/Units 05:11 Sodium 139 (137-145) mmol/L Potassium 4.0 (3.6-5.0) mmol/L Chloride 101.5 (98-107) mmol/L Carbon Dioxide 25 (22-30) mmol/L BUN 14 (9-20) mg/dL Creatinine 0.7 L (0.8-1.5) mg/dL Glucose 167 H (75-100) mg/dL Calcium 9.0 (8.4-10.2) mg/dL - Imaging and Cardiology EKG: other (atrial flutter with rapid VR.)
[2018-09-16] MEDS ORDERED: CARDIZEM PO SCH (10:35)
--- NOTE | 2018-09-16 12:22 | Discharge Summary ---
Providers - Providers Date of Admission: 09/13/18 13:08 Date of discharge: 09/16/18 Attending physician: RHEA VALDEZ 09/13/18 12:59 Consult to Physician [CONS] Routine Comment: Consulting Provider: ZEHRA HODGES Physician Instructions: Reason For Exam: A-flutter with RVR, Chest pain Primary care physician: WONG HENRY Hospitalization Condition: Serious Pertinent studies: CXR Shoulder XRY 2d echo Exercise stress test Hospital course: Brief History: Patient presented to the emergency room with complaints of shortness of breath which was increasing for last few days, along with some sharp chest pains and also rapid heartbeat. She was diagnosed with atrial fibrillation, admitted for further evaluation and management. Discharge Diagnosis and management: / Atrial flutter with rapid ventricular response Patient S/P medical cardioversion in ED, initiated on cacium channel wood therapy for rate control and therapeutic anticoagulation with heparin drip. 2d echo showed Ef 30-35%, s/p stress test placed on eliquis before dischage and medication adjusted / Sleep apnea with possible Obesity hypoventilation syndrome managed with Supplemental oxygen, NIPPV as clinically indicated, pulse oximetry, nebulizer therapy. / Diabetes type 2 Placed on SSI, accu check, hypoglycemia protocol / HTN (hypertension) Monitored BP q shift, continue current therapy, continue medical management. / CHF (congestive heart failure) Ef 30-35% strict I/O, daily weight, monitor uop q shift, supplementla oxygen, afterload reduction, blood pressure control. s/p stress test, started on lasix / Right shoulder pain X ray right shoulder showed no fracture. / DVT prophylaxis SCD to BLE while in bed, continue therapeutic heparin Disposition: when clinically stable and cleared by cardiology Disposition: DC-01 TO HOME OR SELFCARE Time spent for discharge: 34 minutes Core Measure Documentation - Palliative Care Palliative Care/ Comfort Measures: Not Applicable - Core Measures Any of the following diagnoses?: heart failure - Heart Failure Discharge Requirements KARLI/ARB for LVSD if EF <40%: Yes Beta wood at discharge: Yes Exam - Physical Exam Narrative exam: General appearance: Present: no acute distress, well-nourished - EENT Eyes: PERRL, EOM intact ENT: hearing intact, clear oral mucosa Ears: bilateral: normal - Neck Neck: supple, normal ROM - Respiratory Respiratory effort: normal Respiratory: bilateral: CTA - Cardiovascular Heart Sounds: Present: S1 & S2. Absent: gallop, rub Extremities: pulses intact, No edema, normal color, Full ROM - Gastrointestinal General gastrointestinal: Present: soft, non-tender, non-distended, normal bowel sounds - Integumentary Integumentary: clear, warm, dry - Musculoskeletal Musculoskeletal: 1, strength equal bilaterally - Neurologic Neurologic: moves all extremities - Psychiatric Psychiatric: memory intact, appropriate mood/affect, intact judgment & insight - Constitutional Vitals: Temp Pulse Resp BP Pulse Ox 97.5 F L 87 16 152/103 99 09/16/18 06:08 09/16/18 10:00 09/16/18 09:19 09/16/18 06:08 09/16/18 09:12 Plan Activity: advance as tolerated Weight Bearing Status: Weight Bear as Tolerated Diet: low fat, diabetic Special Instructions: record daily weights, record daily BP diary Follow up with: WONG HENRY MD [Primary Care Provider] - 7 Days Forms: Discharge Signature Page Prescriptions: dilTIAZem [Cardizem] 90 mg PO Q8HR #90 tablet Apixaban [Eliquis] 5 mg PO DAILY #30 tablet Furosemide [Lasix TAB] 40 mg PO QDAY #60 tablet
[2018-09-16 12:30] VITALS: BP 145/110
== END 2018-09-16 14:59 | disposition home or self-care (01) | DRG 291 ==
LOC: ED 11:34 → 4A 13:08
PROVIDERS: ADMIT Internal Medicine; ATTEND Internal Medicine
DX: I11.0 Hypertensive heart disease with heart failure (principal); I50.21 Acute systolic (congestive) heart failure; Z68.42 Body mass index [BMI] 45.0-49.9, adult; E66.2 Morbid (severe) obesity with alveolar hypoventilation; I48.92 Unspecified atrial flutter; E11.9 Type 2 diabetes mellitus without complications; Z79.84 Long term (current) use of oral hypoglycemic drugs; G89.29 Other chronic pain; M25.511 Pain in right shoulder; J45.909 Unspecified asthma, uncomplicated; I25.2 Old myocardial infarction; Z82.49 Family history of ischemic heart disease and other diseases of the circulatory system; Z79.899 Other long term (current) drug therapy
CPT/HCPCS: 36415; 71045; 78452; 80048; 80053; 80061; 80307; 82962; 83036; 83690; 83735; 83880; 84100; 84443; 84484; 85014; 85018; 85025; 85049; 85379; 85520; 85610; 85730; 93005; 93010; 93017; 93306; 94640; 96374; 96375; 96376; G0378; A9270-GY; A9502; J0153; J1644; J1815; J1940; J2785; J3475

== ENCOUNTER 2019-02-25 19:56 | Emergency (ER) | payer OTHER ==
[2019-02-25] MEDS ORDERED: ALUM-MAG HYDROXIDE-SIMETHICONE 200-200-20MG/5ML ORAL LIQD 30 ML PO ONE (20:40)
[2019-02-25] MEDS ORDERED: LIDOCAINE VISCOUS 2% 15 ML ORAL LIQD PO ONE (20:40)
[2019-02-25] MEDS ORDERED: METOCLOPRAMIDE 10 MG/2 ML INJ IV ONE (20:41)
[2019-02-25] MEDS ORDERED: PANTOPRAZOLE 40 MG INJ IV ONE ×2 (20:41→23:10)
[2019-02-25] MEDS ORDERED: diphenhydrAMINE 50 MG/ML VIAL IV ONE (20:41)
--- NOTE | 2019-02-25 20:42 | Event Note ---
ED Screening Note Date of service: 02/25/19 Time: 20:43 ED Screening Note: Pt complains of N/V and burning chest pain x 1 week. States hx of GERD states pain improved when he followed GERD diet denies hx of PUD or H. pylori denies hemoptysis or coffee emesis This initial assessment/diagnostic orders/clinical plan/treatment(s) is/are subject to change based on patients health status, clinical progression and re- assessment by fellow clinical providers in the ED. Further treatment and workup at subsequent clinical providers discretion. Patient/guardian urged not to elope from the ED as their condition may be serious if not clinically assessed and managed. Initial orders include: labs
[2019-02-25 21:10] LABS: Hematocrit 46.7 % (35.5-45.6); Hemoglobin 15.4 gm/dl (11.8-15.2); Mean Corpuscular HGB Conc 33 % (32-34); Mean Corpuscular Volume 94 fl (84-94); Platelet Count 292 K/mm3 (140-440); Red Blood Count 4.99 M/mm3 (3.65-5.03)
[2019-02-25 21:32] LABS: Alanine Aminotransferase 14 units/L (7-56); Albumin 3.9 g/dL (3.9-5); BUN/Creatinine Ratio 19; Blood Urea Nitrogen 17 mg/dL (9-20); Calcium 9.1 mg/dL (8.4-10.2); Hemolysis Index 4
[2019-02-25] MEDS ORDERED: ALUM-MAG HYDROXIDE-SIMETHICONE 200-200-20MG/5ML ORAL LIQD 30 ML ONE (23:10)
[2019-02-25] MEDS ORDERED: LIDOCAINE VISCOUS 2% 15 ML ORAL LIQD ONE (23:10)
[2019-02-25] MEDS ORDERED: METOCLOPRAMIDE 10 MG/2 ML INJ ONE (23:11)
[2019-02-25] MEDS ORDERED: diphenhydrAMINE 50 MG/ML VIAL ONE (23:11)
--- NOTE | 2019-02-25 23:15 | Emergency Department Report ---
ED Abdominal Pain HPI - General Chief Complaint: Abdominal Pain Stated Complaint: BAD HEARTBURN AND SOB Time Seen by Provider: 02/25/19 20:33 Source: patient, old records reviewed Mode of arrival: Ambulatory Limitations: No Limitations - History of Present Illness Initial Comments: 58-year-old male with a past medical history of diabetes, GERD, atrial f ibrillation on ELiquis, hypertension, asthma, obesity, CAD with stent presents to the hospital complaining of epigastric pain 5 days. Pain is described as intermittent burning pain worse at night. Patient vomiting over the weekend but has not vomited in the last 3 days. Denies melena, hematochezia, hematemesis, or ear. Patient did have some shortness of breath earlier that has since resolved. Pain described as a burning epigastric pain similar to his reflux but worse than baseline. Pain has continued despite trying to make adjustments and diet and compliance of Nexium and Prilosec. Denies frequent alcohol use. PMD: Dr. Mena - Related Data Home Medications Medication Instructions Recorded Confirmed Last Taken Adult Low Dose Aspirin EC 81 mg PO DAILY 02/05/18 09/13/18 02/04/18 AtorvaSTATin 20 mg PO DAILY 02/05/18 09/13/18 02/05/18 Glipizide 5 mg PO DAILY 02/05/18 09/13/18 02/05/18 metFORMIN 1,000 mg PO BID 02/05/18 09/13/18 02/05/18 Losartan Potassium 50 mg PO DAILY 02/06/18 09/13/18 02/05/18 Fluticasone/Salmeterol [Advair 1 puff IH BID 09/13/18 09/13/18 09/13/18 Diskus 250-50 mcg] Previous Rx's Medication Instructions Recorded Last Taken Type Metoprolol [Lopressor TAB] 100 mg PO BID #60 tablet 10/29/13 02/05/18 Rx Apixaban [Eliquis] 5 mg PO DAILY #30 tablet 09/15/18 Unknown Rx dilTIAZem [Cardizem] 90 mg PO Q8HR #90 tablet 09/15/18 Unknown Rx Furosemide [Lasix TAB] 40 mg PO QDAY #60 tablet 09/16/18 Unknown Rx Ondansetron [Zofran Odt] 4 mg PO Q8HR PRN #20 tab.rapdis 02/26/19 Unknown Rx Oxycodone HCl/Acetaminophen 1 each PO Q6HR PRN #20 tablet 02/26/19 Unknown Rx [Percocet 7.5/325 mg] Allergies Allergy/AdvReac Type Severity Reaction Status Date / Time No Known Allergies Allergy Verified 10/25/13 23:24 ED Review of Systems ROS: Stated complaint: BAD HEARTBURN AND SOB Other details as noted in HPI Comment: All other systems reviewed and negative ED Past Medical Hx - Past Medical History Previous Medical History?: Yes Hx Hypertension: Yes Hx Diabetes: Yes Hx GERD: Yes Hx Asthma: Yes Additional medical history: CAD. Atrial fibrillation - Surgical History Past Surgical History?: Yes Hx Coronary Stent: Yes - Social History Smoking Status: Never Smoker Substance Use Type: None - Medications Home Medications: Home Medications Medication Instructions Recorded Confirmed Last Taken Type Metoprolol [Lopressor TAB] 100 mg PO BID #60 tablet 10/29/13 09/13/18 02/05/18 Rx Adult Low Dose Aspirin EC 81 mg PO DAILY 02/05/18 09/13/18 02/04/18 History AtorvaSTATin 20 mg PO DAILY 02/05/18 09/13/18 02/05/18 History Glipizide 5 mg PO DAILY 02/05/18 09/13/18 02/05/18 History metFORMIN 1,000 mg PO BID 02/05/18 09/13/18 02/05/18 History Losartan Potassium 50 mg PO DAILY 02/06/18 09/13/18 02/05/18 History Fluticasone/Salmeterol [Advair 1 puff IH BID 09/13/18 09/13/18 09/13/18 History Diskus 250-50 mcg] Apixaban [Eliquis] 5 mg PO DAILY #30 tablet 09/15/18 Unknown Rx dilTIAZem [Cardizem] 90 mg PO Q8HR #90 tablet 09/15/18 Unknown Rx Furosemide [Lasix TAB] 40 mg PO QDAY #60 tablet 09/16/18 Unknown Rx Ondansetron [Zofran Odt] 4 mg PO Q8HR PRN #20 tab.rapdis 02/26/19 Unknown Rx Oxycodone HCl/Acetaminophen 1 each PO Q6HR PRN #20 tablet 02/26/19 Unknown Rx [Percocet 7.5/325 mg] ED Physical Exam - General Limitations: No Limitations - Other Other exam information: General: No acute distress Head: Atraumatic Eyes: normal appearance ENT: Moist mucous membranes Neck: Normal appearance, no midline tenderness Chest: Clear to auscultation bilaterally CV: Regular rate and rhythm Abdomen: Soft, normal bowel sounds,epigastric tenderness, mild right upper quadrant tenderness, nondistended, no rebound or guarding Back: Normal inspection Extremity: Normal inspection infection, full range of motion Neuro: Alert O x 3, no facial asymmetry, speech clear, no gross motor sensory deficit Psych: Appropriate behavior Skin: No rash ED Course Vital Signs 02/25/19 02/25/19 02/25/19 20:10 22:28 22:30 Temperature 98.4 F Pulse Rate 86 101 H 95 H Respiratory 20 13 14 Rate Blood Pressure 140/94 Blood Pressure [Left] O2 Sat by Pulse 91 97 Oximetry 02/25/19 02/25/19 02/25/19 22:45 23:00 23:16 Temperature Pulse Rate 100 H 94 H 118 H Respiratory 16 20 20 Rate Blood Pressure 131/101 131/101 138/95 Blood Pressure [Left] O2 Sat by Pulse 94 97 95 Oximetry 02/25/19 02/25/19 02/26/19 23:30 23:46 00:00 Temperature Pulse Rate 105 H 119 H 102 H Respiratory 30 H 29 H 31 H Rate Blood Pressure 134/104 Blood Pressure [Left] O2 Sat by Pulse 97 93 96 Oximetry 02/26/19 02/26/19 02/26/19 00:04 00:46 01:00 Temperature Pulse Rate 98 H 106 H 97 H Respiratory 22 22 29 H Rate Blood Pressure 168/103 150/100 150/100 Blood Pressure [Left] O2 Sat by Pulse 94 92 93 Oximetry 02/26/19 04:30 Temperature 98.2 F Pulse Rate 97 H Respiratory 20 Rate Blood Pressure Blood Pressure 161/92 [Left] O2 Sat by Pulse 95 Oximetry - Reevaluation(s) Reevaluation #1: 02/26/19 02:44 States the pain is current 5/10 after medications. Patient was treated with GI cocktail, PPI, nausea medication and morphine. He was informed of his diagnosis. ED Medical Decision Making - Lab Data Result diagrams: 02/25/19 20:59 02/25/19 20:59 Lab Results 02/25/19 02/25/19 02/25/19 Range/Units 20:59 20:59 20:59 WBC 9.3 (4.5-11.0) K/mm3 RBC 4.99 (3.65-5.03) M/mm3 Hgb 15.4 H (11.8-15.2) gm/dl Hct 46.7 H (35.5-45.6) % MCV 94 (84-94) fl MCH 31 (28-32) pg MCHC 33 (32-34) % RDW 14.0 (13.2-15.2) % Plt Count 292 (140-440) K/mm3 Sodium 138 (137-145) mmol/L Potassium 4.3 (3.6-5.0) mmol/L Chloride 100.5 (98-107) mmol/L Carbon Dioxide 27 (22-30) mmol/L Anion Gap 15 mmol/L BUN 17 (9-20) mg/dL Creatinine 0.9 (0.8-1.5) mg/dL Estimated GFR > 60 ml/min BUN/Creatinine Ratio 19 % Glucose 130 H (75-100) mg/dL Calcium 9.1 (8.4-10.2) mg/dL Total Bilirubin 0.50 (0.1-1.2) mg/dL AST 16 (5-40) units/L ALT 14 (7-56) units/L Alkaline Phosphatase 90 (35-129) units/L Troponin T < 0.010 (0.00-0.029) ng/mL Total Protein 8.3 H (6.3-8.2) g/dL Albumin 3.9 (3.9-5) g/dL Albumin/Globulin Ratio 0.9 % Lipase 255 H (13-60) units/L 02/26/19 Range/Units 00:14 WBC (4.5-11.0) K/mm3 RBC (3.65-5.03) M/mm3 Hgb (11.8-15.2) gm/dl Hct (35.5-45.6) % MCV (84-94) fl MCH (28-32) pg MCHC (32-34) % RDW (13.2-15.2) % Plt Count (140-440) K/mm3 Sodium (137-145) mmol/L Potassium (3.6-5.0) mmol/L Chloride (98-107) mmol/L Carbon Dioxide (22-30) mmol/L Anion Gap mmol/L BUN (9-20) mg/dL Creatinine (0.8-1.5) mg/dL Estimated GFR ml/min BUN/Creatinine Ratio % Glucose (75-100) mg/dL Calcium (8.4-10.2) mg/dL Total Bilirubin (0.1-1.2) mg/dL AST (5-40) units/L ALT (7-56) units/L Alkaline Phosphatase (35-129) units/L Troponin T < 0.010 (0.00-0.029) ng/mL Total Protein (6.3-8.2) g/dL Albumin (3.9-5) g/dL Albumin/Globulin Ratio % Lipase (13-60) units/L - EKG Data -: EKG Interpreted by Me (atrial fibrillation rate 107) EKG shows normal: ST-T waves (no STEMI) - EKG Data When compared to previous EKG there are: no significant change - Radiology Data Radiology results: report reviewed CT abdomen and pelvis with IV contrast: Impression: Evidence of mild pancreatitis without obvious complication. Evidence of mild constipation on the right. Small new indeterminate lesions of the left kidney and recommend follow-up. - Medical Decision Making Patient has mild pancreatitis with unknown inciting factor. Nontoxic appearing. Tolerating by mouth. Will be treated as outpatient with pain and nausea medication. Patient given strict instructions to return if pain is uncontrolled with medications or if he has nausea vomiting with by mouth intolerance, or fever. Patient voices understanding. He was also performed incidental kidney findings on CT and need for outpatient follow-up. He will be provided a copy of his CT report to take to his primary care doctor who can continue with outpatient workup as needed. - Differential Diagnosis cholecystitis, cholelithiasis, PUD, GERD, [place] Critical Care Time: No Critical care attestation.: If time is entered above; I have spent that time in minutes in the direct care of this critically ill patient, excluding procedure time. ED Disposition Clinical Impression: GERD (gastroesophageal reflux disease) Pancreatitis Qualifiers: Chronicity: acute Pancreatitis type: unspecified pancreatitis type Acute pancreatitis complication: no infection or necrosis Qualified Code(s): K85.90 - Acute pancreatitis without necrosis or infection, unspecified Disposition: DC- TO HOME OR SELFCARE Is pt being admited?: No Does the pt Need Aspirin: No Condition: Stable Instructions: Pancreatitis (ED) Additional Instructions: Take the medication as prescribed. Follow-up with your doctor or doctor/clinic provided. Return if symptoms worsen as indicated by your discharge instructions. Please return if you have severe pain not controlled by medications, fever, or nausea or vomiting and unable to tolerate any fluid or fold intake. Prescriptions: Oxycodone HCl/Acetaminophen [Percocet 7.5/325 mg] 1 each PO Q6HR PRN #20 tablet PRN Reason: Pain Ondansetron [Zofran Odt] 4 mg PO Q8HR PRN #20 tab.rapdis PRN Reason: Nausea And Vomiting Referrals: PRIMARY CARE, [Primary Care Provider] - 3-5 Days Time of Disposition: 04:32
[2019-02-26] MEDS ORDERED: MORPHINE 4 MG/1 ML INJ IV ONE (00:01)
[2019-02-26] MEDS ORDERED: ONDANSETRON 4 MG/2 ML INJ IV ONE ×2 (00:01→02:44)
--- NOTE | 2019-02-26 02:33 | Cat Scan Report ---
CT ABDOMEN AND PELVIS WITH CONTRAST INDICATION: Epigastric pain, nausea, vomiting, heartburn CONTRAST: 100 cc Omnipaque 300 IV COMPARISON: 10/26/2013, report unavailable All CT scans at this location are performed using CT dose reduction for ALARA by means of automated e xposure control. NOTE: Resolution is decreased and artifact is introduced by the patient's size. FINDINGS: Lung bases are clear of infiltrates. Her seen. Only mild atelectatic changes are noted. No pneumoperitoneum is seen. Fatty infiltration of the liver is noted without obvious focal lesion. Live r is enlarged and has a length of 20.8 cm. Spleen appears within normal limits. No evidence of bowel obstruction is seen. Mild colonic diverticulosis is seen without evidence of div erticulitis. Mild increase in right colonic stool is seen consistent with mild constipation. Appendix appears within normal limits. Small periumbilical fatty hernia is seen but no significant focal abdo carl wall hernias are noted. No urinary obstructive changes are seen. Small cyst is again seen in the lower pole the right kidney. In the upper posterior lateral aspect of the left kidney a 2 cm hypodensity is seen with internal de nsity measuring 46 Hounsfield units. There is a suggestion of a small complex hypodensity in the angelique phery of the posterior cortex of the left mid kidney measuring 7 mm as well. Neither of these areas w ere seen on the prior study in 2013. Gallbladder and bile ducts appear within normal limits. The head of the pancreas appears mildly edema tous with mild surrounding inflammation. No pancreatic ductal dilatation is seen. No pancreatic mass is noted. No pseudocyst is seen. I do not see evidence of hemorrhage or necrosis. IMPRESSION: 1. Evidence of mild pancreatitis without obvious complication 2. Evidence of mild constipation on the right 3. Small new indeterminate lesions of the left kidney. Recommend follow-up with multiphase study. Signer Name: Bay Mayorga MD Signed: 02/26/2019 2:29 AM Workstation Name: [email or web address]
[2019-02-26] MEDS ORDERED: HYDROmorphone 1 MG/1 ML INJ IV ONE (02:44)
[2019-02-26 04:31] VITALS: BP 161/92
== END 2019-02-26 04:57 | disposition home or self-care (01) ==
LOC: ED 19:56
DX: K21.9 Gastro-esophageal reflux disease without esophagitis (principal); K85.90 Acute pancreatitis without necrosis or infection, unspecified; I10 Essential (primary) hypertension; E11.9 Type 2 diabetes mellitus without complications; J45.909 Unspecified asthma, uncomplicated; I25.10 Atherosclerotic heart disease of native coronary artery without angina pectoris; I48.91 Unspecified atrial fibrillation
CPT/HCPCS: 36415; 74177; 80053; 83690; 84484; 85027; 93005; 93010; 96374; 96375; 96376; 99284; C9113; J1170; J1200; J2270; J2405; J2765; Q9967

== ENCOUNTER 2020-06-17 07:30 | Day surgery (SDC) | payer OTHER ==
[2020-06-17] MEDS ORDERED: SODIUM CHLORIDE 0.9% 1000 ML 1,000 ML IV SCH (08:15)
[2020-06-17 08:21] LABS: Hematocrit 43.9 % (35.5-45.6); Hemoglobin 14.7 gm/dl (11.8-15.2); Mean Corpuscular HGB Conc 34 % (32-34); Mean Corpuscular Volume 94 fl (84-94); Platelet Count 203 K/mm3 (140-440); Red Blood Count 4.65 M/mm3 (3.65-5.03); Red Cell Distribution Width 13.8 % (13.2-15.2)
[2020-06-17 08:32] LABS: INR 1.1 (0.87-1.13)
[2020-06-17 08:33] LABS: Partial Thromboplastin Time 26.6 Sec. (24.2-36.6)
[2020-06-17 08:34] LABS: BUN/Creatinine Ratio 18; Blood Urea Nitrogen 16 mg/dL (9-20); Calcium 8.6 mg/dL (8.4-10.2); Hemolysis Index 15
--- NOTE | 2020-06-17 09:19 | Anesthesia Day of Surgery ---
Anesthesia Day of Surgery - Day of Surgery Patient Examined: Yes Patient H&P Reviewed: Yes Patient is NPO: Yes
--- NOTE | 2020-06-17 09:19 | Anesthesia Consultation ---
Anesthesia Consult and Med Hx Date of service: 06/17/20 - Airway Anesthetic Teeth Evaluation: Good ROM Head & Neck: Adequate Mental/Hyoid Distance: Inadequate Mallampati Class: Class III Intubation Access Assessment: Possibly Difficult - Pulmonary Exam CTA: Yes - Cardiac Exam Cardiac Exam: No Murmur (irregular rhythm) - Pre-Operative Health Status ASA Pre-Surgery Classification: ASA3 Proposed Anesthetic Plan: MAC - Pulmonary Hx Smoking: Yes (former smoker quit 20yrs ago) Hx Sleep Apnea: Yes (compliant with CPAP) - Cardiovascular System Hx Hypertension: Yes (took antihypertensives last night) Hx Heart Attack/AMI: No (NICM EF 35-40%) Hx Percutaneous Transluminal Coronary Angioplasty (PTCA): No Hx Cardia Arrhythmia: Yes (a-fib/flutter; last dose eliquis 06/16 PM) Hx Pacemaker: No Hx Internal Defibrillator: No - Central Nervous System CVA: No - Endocrine Hx Renal Disease: No Hx Liver Disease: No Hx Non-Insulin Dependent Diabetes: Yes Hx Thyroid Disease: No - Other Systems Hx Obesity: Yes (BMI 44) - Additional Comments Anesthesia Medical History Comments: No hx anesthetic complications.
[2020-06-17] MEDS ORDERED: propofoL 200 MG/20 ML VIAL IV ONE (11:05)
[2020-06-17] MEDS ORDERED: LIDOCAINE (2%) 20 MG/1 ML VIAL 20 ML MDV INFILTRATI ONE (11:05)
[2020-06-17] MEDS ORDERED: fentaNYL 100 MCG/2 ML INJ ONE (11:07)
--- NOTE | 2020-06-17 11:32 | Cardiac Catherization Report ---
REFERRING PHYSICIAN: Dr. Serena Moreau. INDICATION FOR PROCEDURE: The patient with history of atrial fibrillation, on long-term anticoagulation, has not missed any doses over the past 3 months, here for elective cardioversion. Risks and benefits, alternatives discussed. PROCEDURE IN DETAIL: The patient was brought to the labor training manager in a postabsorptive state. Anesthesia at bedside. Once adequate anesthesia was obtained, 200 biphasic joules were delivered with immediate resumption of sinus rhythm. No complications. Anesthesia to recover the patient. The patient tolerated the procedure well. CONCLUSIONS: Successful elective electrical cardioversion of atrial fibrillation, resumption of sinus rhythm. No immediate complications identified. Anesthesia to recover the patient. The results of procedure will be reviewed with the patient and family. JOB# [id number] GABY/GASPER
[2020-06-17 12:40] VITALS: BP 128/83
--- NOTE | 2020-06-17 14:57 | Post Anesthesia Evaluation ---
- Post Anesthesia Evaluation Patient Participated: Yes Airway Patent: Yes Stable Respiratory Function: Yes Nausea/Vomiting: No Temp > 96.8F: Yes Pain Manageable: Yes Adequeate Hydration: Yes Anesthesia Complications: No
== END 2020-06-17 07:31 | disposition home or self-care (01) ==
LOC: CATHLABREC 07:30
PROVIDERS: ATTEND Anesthesiology
DX: I48.91 Unspecified atrial fibrillation (principal); I11.0 Hypertensive heart disease with heart failure; I50.21 Acute systolic (congestive) heart failure; I25.2 Old myocardial infarction; G47.30 Sleep apnea, unspecified; I42.9 Cardiomyopathy, unspecified; E66.9 Obesity, unspecified; K21.9 Gastro-esophageal reflux disease without esophagitis; E11.9 Type 2 diabetes mellitus without complications; Z79.899 Other long term (current) drug therapy; Z79.84 Long term (current) use of oral hypoglycemic drugs; Z98.890 Other specified postprocedural states; Z68.41 Body mass index [BMI] 40.0-44.9, adult
CPT/HCPCS: 36415; 80048; 85027; 85610; 85730; 92960; 93005; J2704; J3010; J7030

== ENCOUNTER 2021-08-21 21:59 | Emergency (ER) | payer OTHER ==
[2021-08-21] MEDS ORDERED: ASPIRIN 81 MG TAB CHEW PO ONE (22:16)
[2021-08-21] MEDS ORDERED: FUROSEMIDE 40 MG/4 ML INJ IV ONE (22:17)
[2021-08-21] MEDS ORDERED: NITROGLYCERIN 0.4 MG TAB SUBL SL ONE (22:17)
--- NOTE | 2021-08-21 22:21 | Emergency Department Report ---
ED Chest Pain HPI - General Chief Complaint: Chest Pain Stated Complaint: CHEST PAIN Time Seen by Provider: 08/21/21 22:12 Source: patient Mode of arrival: Ambulatory Limitations: No Limitations - History of Present Illness Initial Comments: Patient is 61 years old male with history of hypertension, diabetes, congestive heart failure and asthma. Patient also had history of atrial fibrillation. Patient presented to the ER with chief complaint of chest pain for the last 2 to 3 days associated with shortness of breath. Patient describes his chest pain as heaviness, diffuse with no radiation. Patient denied any fever or chills. Patient stated that he is out of his Lasix for the last few days because he travel outside the city. MD Complaint: chest pain - Related Data Previous Rx's Medication Instructions Recorded Last Taken Type Apixaban [Eliquis] 5 mg PO Q12HR #60 tablet 01/05/21 Unknown Rx Aspirin EC [Halfprin EC] 81 mg PO QDAY #30 tablet 01/05/21 Unknown Rx AtorvaSTATin [Lipitor] 40 mg PO QHS #30 tablet 01/05/21 Unknown Rx Losartan [Cozaar] 50 mg PO QDAY #30 tablet 01/05/21 Unknown Rx Metoprolol [Lopressor TAB] 100 mg PO BID #60 tablet 01/05/21 Unknown Rx bisacodyL [Dulcolax suppos] 10 mg TX QDAY PRN #14 supp.rect 01/05/21 Unknown Rx dilTIAZem CD [Cardizem CD] 240 mg PO QDAY #30 capsule 01/05/21 Unknown Rx glipiZIDE XL [Glucotrol Xl] 5 mg PO QAM #30 tab.er.24 01/05/21 Unknown Rx Furosemide [Lasix TAB] 40 mg PO QDAY #30 tablet 08/21/21 Unknown Rx Allergies Allergy/AdvReac Type Severity Reaction Status Date / Time No Known Allergies Allergy Verified 10/25/13 23:24 Heart Score - HEART Score History: Moderately suspicious EKG: Non-specific Age: 45-65 Risk factors: > 3 risk factors or hx of atherosclerotic disease Troponin: < normal limit HEART Score: 5 - EKG Read Time Time EKG Completed: 21:58 EKG Read Time: 21:59 ED Review of Systems ROS: Stated complaint: CHEST PAIN Other details as noted in HPI Comment: All other systems reviewed and negative Constitutional: denies: chills, fever Respiratory: orthopnea, shortness of breath, SOB with exertion, SOB at rest. denies: cough Cardiovascular: chest pain, palpitations Gastrointestinal: denies: abdominal pain, nausea, vomiting, diarrhea, constipation, hematemesis, melena, hematochezia Musculoskeletal: denies: back pain Neurological: denies: headache, weakness, numbness, paresthesias, confusion ED Past Medical Hx - Past Medical History Hx Hypertension: Yes (took antihypertensives last night) Hx Heart Attack/AMI: No (NICM EF 35-40%) Hx Diabetes: Yes Hx GERD: Yes Hx Liver Disease: No Hx Renal Disease: No Hx Asthma: Yes Additional medical history: CAD. Atrial fibrillation - Surgical History Hx Coronary Stent: No Hx Pacemaker: No Hx Internal Defibrillator: No - Social History Smoking Status: Never Smoker - Medications Home Medications: Home Medications Medication Instructions Recorded Confirmed Last Taken Type Apixaban [Eliquis] 5 mg PO Q12HR #60 tablet 01/05/21 Unknown Rx Aspirin EC [Halfprin EC] 81 mg PO QDAY #30 tablet 01/05/21 Unknown Rx AtorvaSTATin [Lipitor] 40 mg PO QHS #30 tablet 01/05/21 Unknown Rx Losartan [Cozaar] 50 mg PO QDAY #30 tablet 01/05/21 Unknown Rx Metoprolol [Lopressor TAB] 100 mg PO BID #60 tablet 01/05/21 Unknown Rx bisacodyL [Dulcolax suppos] 10 mg TX QDAY PRN #14 supp.rect 01/05/21 Unknown Rx dilTIAZem CD [Cardizem CD] 240 mg PO QDAY #30 capsule 01/05/21 Unknown Rx glipiZIDE XL [Glucotrol Xl] 5 mg PO QAM #30 tab.er.24 01/05/21 Unknown Rx Furosemide [Lasix TAB] 40 mg PO QDAY #30 tablet 08/21/21 Unknown Rx ED Physical Exam - General Limitations: No Limitations General appearance: alert, in distress - Head Head exam: Present: atraumatic, normocephalic, normal inspection - Eye Eye exam: Present: normal appearance - ENT ENT exam: Present: normal exam, normal orophraynx, mucous membranes moist - Neck Neck exam: Present: normal inspection, full ROM. Absent: tenderness, meningismus, lymphadenopathy - Respiratory Respiratory exam: Present: respiratory distress, rales, decreased breath sounds. Absent: wheezes, rhonchi - Cardiovascular Cardiovascular Exam: Present: tachycardia, irregular rhythm - GI/Abdominal GI/Abdominal exam: Present: soft, normal bowel sounds. Absent: distended, tenderness, guarding, rebound, rigid, mass, bruit, pulsatile mass, hernia - Extremities Exam Extremities exam: Present: full ROM, normal capillary refill, pedal edema. Absent: tenderness, calf tenderness - Back Exam Back exam: Present: normal inspection, full ROM. Absent: CVA tenderness (R), CVA tenderness (L) - Neurological Exam Neurological exam: Present: alert, oriented X3, CN II-XII intact, normal gait, reflexes normal. Absent: motor sensory deficit - Psychiatric Psychiatric exam: Present: normal mood, anxious - Skin Skin exam: Present: warm, intact, normal color ED Course Vital Signs 08/21/21 08/21/21 08/21/21 22:13 22:54 23:27 Temperature 97.9 F 98.3 F Pulse Rate 104 H 117 H Respiratory 18 Rate Blood Pressure 176/97 Blood Pressure 181/113 [Right] O2 Sat by Pulse 99 Oximetry OLESYA score - Olesya Score Age > 65: (0) No Aspirin use within the Past 7 Days: (0) No 3 or more CAD Risk Factors: (1) Yes 2 or more Angina events in past 24 hrs: (1) Yes Known CAD with more than 50% Stenosis: (0) No Elevated Cardiac Markers: (1) Yes ST Deviation Greater than 0.5mm: (0) No OLESYA Score: 3 ED Medical Decision Making - Lab Data Result diagrams: 08/21/21 22:26 08/21/21 22:26 - EKG Data -: EKG Interpreted by Vt Rate: tachycardia - EKG Data Interpretation: no acute changes 08/21/21 23:58 Atrial fibrillation with heart rate of 104. - Radiology Data Radiology results: report reviewed - Medical Decision Making Patient is 61 years old male with history of hypertension, diabetes, congestive heart failure and asthma. Patient also had history of atrial fibrillation. Patient presented to the ER with chief complaint of chest pain for the last 2 to 3 days associated with shortness of breath. Patient describes his chest pain as heaviness, diffuse with no radiation. Patient denied any fever or chills. Patient stated that he is out of his Lasix for the last few days because he travel outside the city. EKG showed atrial fibrillation with a heart rate of 104. Chest x-ray showed pulmonary edema. Labs reviewed and showed a BNP of 900. Patient received Lasix, nitro and morphine. Patient with acute CHF exacerbation and chest pain. I recommended patient for admission and I discussed the patient with Dr. Green, he agreed to admit the patient to the hospital for further management however patient stated that he does not want to stay and he want to go home. Patient is alert, oriented x3 able to make sound decision. Patient signed AGAINST MEDICAL ADVICE. Patient advised to return to the ER or go to another ER as soon as possible. I gave patient Lasix tablets 40 mg. Critical Care Time: Yes Critical care time in (mins) excluding proc time.: 35 Critical care attestation.: If time is entered above; I have spent that time in minutes in the direct care of this critically ill patient, excluding procedure time. ED Disposition Clinical Impression: Acute exacerbation of CHF (congestive heart failure), Acute chest pain Disposition: 07 LEFT AGAINST MEDICAL ADVICE Is pt being admited?: No Condition: Stable Instructions: Chest Pain (ED), Nonspecific Chest Pain, Adult, Heart Failure Exacerbation Prescriptions: Furosemide [Lasix TAB] 40 mg PO QDAY #30 tablet
--- NOTE | 2021-08-21 22:53 | XRay Report ---
CHEST 1 VIEW 08/21/2021 10:34 PM INDICATION / CLINICAL INFORMATION: Chest Pain. COMPARISON: One view of the chest from 09/13/2018. FINDINGS: SUPPORT DEVICES: None. HEART / MEDIASTINUM: No significant abnormality. LUNGS / PLEURA: There is central vascular congestion with nonspecific bilateral interstitial opacitie s. No significant pleural effusion. No pneumothorax. ADDITIONAL FINDINGS: No significant additional findings. IMPRESSION: 1. Central vascular congestion with probable bilateral atelectasis/edema. No other acute findings. Signer Name: Asad Beltrán MD Signed: 08/21/2021 10:49 PM Workstation Name: [id number]
[2021-08-21 22:57] LABS: Basophils # (Auto) 0.1 K/mm3 (0.0-0.1); Basophils % (Auto) 0.7 % (0.0-1.8); Eosinophils # (Auto) 0.3 K/mm3 (0.0-0.4); Eosinophils % (Auto) 2.7 % (0.0-4.3); Hematocrit 39.4 % (35.5-45.6); Lymphocytes # (Auto) 2.6 K/mm3 (1.2-5.4); Lymphocytes % (Auto) 27.6 % (13.4-35.0); Mean Corpuscular HGB Conc 33 % (32-34); Mean Corpuscular Volume 96 fl (84-94); Monocytes # (Auto) 0.8 K/mm3 (0.0-0.8); Monocytes % (Auto) 8.4 % (0.0-7.3); Platelet Count 225 K/mm3 (140-440); Red Blood Count 4.09 M/mm3 (3.65-5.03); Red Cell Distribution Width 13.8 % (13.2-15.2)
[2021-08-21] MEDS ORDERED: MORPHINE 4 MG/1 ML INJ IV ONE (22:58)
[2021-08-21] MEDS ORDERED: ONDANSETRON 4 MG/2 ML INJ IV ONE (22:59)
[2021-08-21 23:11] LABS: INR 1.04 (0.87-1.13); Partial Thromboplastin Time 28.2 Sec. (24.2-36.6)
[2021-08-21 23:27] LABS: BUN/Creatinine Ratio 18; Blood Urea Nitrogen 20 mg/dL (9-20); Calcium 8.9 mg/dL (8.4-10.2); Hemolysis Index 4
[2021-08-21 23:30] LABS: Alanine Aminotransferase 19 units/L (7-56); Albumin 4.2 g/dL (3.9-5)
[2021-08-21 23:37] LABS: Bilirubin,Direct < 0.2 mg/dL (0-0.2)
[2021-08-22 00:16] VITALS: BP 154/96
--- NOTE | 2021-08-23 17:52 | Electrocardiograph Report ---
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
== END 2021-08-22 | disposition left against medical advice (07) ==
LOC: ED 21:59
DX: R06.02 Shortness of breath (principal); I10 Essential (primary) hypertension; E11.9 Type 2 diabetes mellitus without complications
CPT/HCPCS: 36415; 71045; 80048; 80076; 83690; 83880; 84484; 85025; 85610; 85730; 93005; 96374; 96375; 99291; J1940; J2270; J2405; 99284

== ENCOUNTER 2021-10-10 16:13 | Inpatient (IN) | payer OTHER ==
--- NOTE | 2021-10-10 16:38 | Emergency Department Report ---
ED General Adult HPI - General Chief complaint: Dyspnea/Respdistress Stated complaint: SOB Time Seen by Provider: 10/10/21 16:32 Source: patient, EMS Mode of arrival: Stretcher Limitations: No Limitations - History of Present Illness Initial comments: The patient presents to the emergency department with a chief complaint of increased shortness of breath over the last 2 to 3 days. Patient states he has a history of heart failure and takes 2 water pills daily for that. Prior to arrival the patient's O2 sats were 92% on room air. Patient was placed on oxygen in the ED. Patient also complains of diffuse chest pain for the last 2 to 3 days as well. Patient complains of increased shortness of breath with any type of ambulation. He denies any abdominal pain or headache -: Gradual Location: chest Radiation: non-radiation Severity scale (0 -10): 3 Quality: dull Consistency: constant Improves with: rest Worsens with: movement Associated Symptoms: denies other symptoms Treatments Prior to Arrival: none - Related Data Previous Rx's Medication Instructions Recorded Last Taken Type Apixaban [Eliquis] 5 mg PO Q12HR #60 tablet 01/05/21 Unknown Rx Aspirin EC [Halfprin EC] 81 mg PO QDAY #30 tablet 01/05/21 Unknown Rx AtorvaSTATin [Lipitor] 40 mg PO QHS #30 tablet 01/05/21 Unknown Rx Losartan [Cozaar] 50 mg PO QDAY #30 tablet 01/05/21 Unknown Rx Metoprolol [Lopressor TAB] 100 mg PO BID #60 tablet 01/05/21 Unknown Rx bisacodyL [Dulcolax suppos] 10 mg [place] QDAY PRN #14 supp.rect 01/05/21 Unknown Rx dilTIAZem CD [Cardizem CD] 240 mg PO QDAY #30 capsule 01/05/21 Unknown Rx glipiZIDE XL [Glucotrol Xl] 5 mg PO QAM #30 tab.er.24 01/05/21 Unknown Rx Furosemide [Lasix TAB] 40 mg PO QDAY #30 tablet 08/21/21 Unknown Rx Allergies Allergy/AdvReac Type Severity Reaction Status Date / Time No Known Allergies Allergy Verified 10/10/21 17:30 ED Review of Systems ROS: Stated complaint: SOB Other details as noted in HPI Comment: All other systems reviewed and negative Constitutional: denies: chills, fever Eyes: denies: eye pain, eye discharge, vision change ENT: denies: ear pain, throat pain Respiratory: shortness of breath, SOB with exertion. denies: cough, wheezing Cardiovascular: chest pain. denies: palpitations Endocrine: no symptoms reported Gastrointestinal: denies: abdominal pain, nausea, diarrhea Genitourinary: denies: urgency, dysuria Musculoskeletal: other (Swelling of lower extremities). denies: back pain, joint swelling, arthralgia Skin: denies: rash, lesions Neurological: denies: headache, weakness, paresthesias Psychiatric: denies: anxiety, depression Hematological/Lymphatic: denies: easy bleeding, easy bruising ED Past Medical Hx - Past Medical History Hx Hypertension: Yes (took antihypertensives last night) Hx Heart Attack/AMI: No (NICM EF 35-40%) Hx Diabetes: Yes Hx GERD: Yes Hx Liver Disease: No Hx Renal Disease: No Hx Asthma: Yes Additional medical history: CAD. Atrial fibrillation - Surgical History Hx Coronary Stent: No Hx Pacemaker: No Hx Internal Defibrillator: No - Social History Smoking Status: Never Smoker - Medications Home Medications: Home Medications Medication Instructions Recorded Confirmed Last Taken Type Apixaban [Eliquis] 5 mg PO Q12HR #60 tablet 01/05/21 Unknown Rx Aspirin EC [Halfprin EC] 81 mg PO QDAY #30 tablet 01/05/21 Unknown Rx AtorvaSTATin [Lipitor] 40 mg PO QHS #30 tablet 01/05/21 Unknown Rx Losartan [Cozaar] 50 mg PO QDAY #30 tablet 01/05/21 Unknown Rx Metoprolol [Lopressor TAB] 100 mg PO BID #60 tablet 01/05/21 Unknown Rx bisacodyL [Dulcolax suppos] 10 mg NE QDAY PRN #14 supp.rect 01/05/21 Unknown Rx dilTIAZem CD [Cardizem CD] 240 mg PO QDAY #30 capsule 01/05/21 Unknown Rx glipiZIDE XL [Glucotrol Xl] 5 mg PO QAM #30 tab.er.24 01/05/21 Unknown Rx Furosemide [Lasix TAB] 40 mg PO QDAY #30 tablet 08/21/21 Unknown Rx ED Physical Exam - General Limitations: No Limitations General appearance: alert, in no apparent distress - Head Head exam: Present: atraumatic, normocephalic - Eye Eye exam: Present: normal appearance, PERRL, EOMI - ENT ENT exam: Present: mucous membranes moist - Neck Neck exam: Present: normal inspection - Respiratory Respiratory exam: Present: rales. Absent: respiratory distress - Cardiovascular Cardiovascular Exam: Present: normal rhythm, tachycardia. Absent: systolic murmur, diastolic murmur, rubs, gallop - GI/Abdominal GI/Abdominal exam: Present: soft, distended, normal bowel sounds, other (Pitting edema to abdomen). Absent: tenderness - Rectal Rectal exam: Present: deferred - Extremities Exam Extremities exam: Present: other (Bilateral pitting edema) - Back Exam Back exam: Present: normal inspection - Neurological Exam Neurological exam: Present: alert, oriented X3, CN II-XII intact. Absent: motor sensory deficit - Psychiatric Psychiatric exam: Present: normal affect, normal mood - Skin Skin exam: Present: warm, dry, intact, normal color. Absent: rash ED Course Vital Signs 10/10/21 10/10/21 10/10/21 16:16 16:44 16:46 Pulse Rate 120 H 105 H 156 H Respiratory 26 H 26 H Rate Blood Pressure Blood Pressure 155/110 [Left] O2 Sat by Pulse 99 Oximetry 10/10/21 10/10/21 10/10/21 17:01 17:10 17:15 Pulse Rate 111 H 112 H 117 H Respiratory 19 26 H 21 Rate Blood Pressure 140/103 140/103 Blood Pressure [Left] O2 Sat by Pulse 98 99 99 Oximetry 10/10/21 10/10/21 17:16 17:45 Pulse Rate 120 H 106 H Respiratory 22 Rate Blood Pressure 121/86 Blood Pressure [Left] O2 Sat by Pulse 97 Oximetry ED Medical Decision Making - Lab Data Result diagrams: 10/10/21 17:04 10/10/21 17:04 - EKG Data -: EKG Interpreted by Me Rate: tachycardia - EKG Data Interpretation: other (Irregularly irregular) - Radiology Data Radiology results: report reviewed - Medical Decision Making Irregularly irregular IV Lasix given Patient is elevated troponins likely secondary to his congestive heart failure but troponins trending will be continued Critical Care Time: Yes Critical care time in (mins) excluding proc time.: 35 Critical care attestation.: If time is entered above; I have spent that time in minutes in the direct care of this critically ill patient, excluding procedure time. ED Disposition Clinical Impression: Congestive heart failure, Atrial fibrillation Disposition: 09 ADMITTED INPATIENT Is pt being admited?: Yes Does the pt Need Aspirin: Yes Condition: Fair Referrals: PRIMARY CARE, [Primary Care Provider] - 3-5 Days
--- NOTE | 2021-10-10 17:18 | XRay Report ---
CHEST 1 VIEW INDICATION / CLINICAL INFORMATION: Dyspnea STUDY TIME: 1657 COMPARISON: 08/21/2021 FINDINGS: SUPPORT DEVICES: None HEART / MEDIASTINUM: Mild cardiomegaly is again seen LUNGS / PLEURA: Slightly congested appearance is noted. Increasing density is seen in the right base which could relate to the congestive process though mild developing infiltrate is not excluded. No de finite pleural effusions. No pneumothorax. ADDITIONAL FINDINGS: No significant additional findings. Signer Name: Bay Mayorga MD Signed: 10/10/2021 5:13 PM Workstation Name: [id number]
[2021-10-10 17:33] LABS: Basophils # (Auto) 0.1 K/mm3 (0.0-0.1); Eosinophils # (Auto) 0.2 K/mm3 (0.0-0.4); Eosinophils % (Auto) 2.2 % (0.0-4.3); Hematocrit 36.9 % (35.5-45.6); Hemoglobin 11.7 gm/dl (11.8-15.2); Lymphocytes # (Auto) 1.7 K/mm3 (1.2-5.4); Mean Corpuscular HGB Conc 32 % (32-34); Mean Corpuscular Volume 96 fl (84-94); Monocytes # (Auto) 0.9 K/mm3 (0.0-0.8); Monocytes % (Auto) 12.7 % (0.0-7.3); Platelet Count 261 K/mm3 (140-440); Red Blood Count 3.83 M/mm3 (3.65-5.03); Red Cell Distribution Width 14.9 % (13.2-15.2)
[2021-10-10] MEDS ORDERED: CEFEPIME/NS 2 GM/100 ML 2 GM/100 ML BAG IV ONE (17:40)
[2021-10-10 17:49] LABS: INR 1.23 (0.87-1.13)
[2021-10-10 17:50] LABS: Partial Thromboplastin Time 29.2 Sec. (24.2-36.6)
[2021-10-10 18:03] LABS: Alanine Aminotransferase 25 units/L (7-56); Albumin 3.6 g/dL (3.9-5); BUN/Creatinine Ratio 19; Blood Urea Nitrogen 23 mg/dL (9-20); Calcium 9.1 mg/dL (8.4-10.2); Hemolysis Index 0
[2021-10-10] MEDS ORDERED: FUROSEMIDE 40 MG/4 ML INJ IV ONE (18:10)
[2021-10-10] MEDS ORDERED: dilTIAZem 25 MG/5 ML INJ IV ONE (18:47)
[2021-10-10] MEDS ORDERED: ASPIRIN 81 MG TAB CHEW PO ONE (18:48)
[2021-10-10 19:00] LABS: Chol/HDL Ratio 3.57 %; HDL Cholesterol 28 mg/dL (40-59); LDL Cholesterol,Direct 57 mg/dL (50-130)
[2021-10-10 19:33] LABS: Bilirubin,Urine NEG (Negative); Blood,Urine SM (Negative); Color,Urine Yellow (Yellow); Urobilinogen,Urine < 2.0 mg/dL (<2.0)
[2021-10-10 19:37] LABS: Amphetamine Screen,Urine Negative; Benzodiazepines Screen,Urine Negative; Cannabinoid Screen,Urine Negative; Cocaine Screen,Urine Negative; Methadone Screen,Urine Negative; Opiate Screen,Urine Negative
[2021-10-10 19:39] LABS: Mucus,Urine FEW /HPF; RBC,Urine < 1.0 /HPF (0.0-6.0); WBC,Urine < 1.0 /HPF (0.0-6.0)
[2021-10-10] MEDS ORDERED: ACETAMINOPHEN 325 MG TAB PO PRN (23:42)
[2021-10-10] MEDS ORDERED: ONDANSETRON 4 MG/2 ML INJ IV PRN (23:42)
[2021-10-10] MEDS ORDERED: METOCLOPRAMIDE 10 MG/2 ML INJ IV PRN (23:42)
[2021-10-10] MEDS ORDERED: SPIRONOLACTONE 25 MG TAB PO ONE (23:45)
[2021-10-11] MEDS: FUROSEMIDE 40 MG/4 ML INJ IV SCH ×3 (00:56→17:57)
[2021-10-11 06:22] LABS: Hematocrit 37.9 % (35.5-45.6); Mean Corpuscular HGB Conc 32 % (32-34); Mean Corpuscular Volume 97 fl (84-94); Platelet Count 287 K/mm3 (140-440); Red Blood Count 3.91 M/mm3 (3.65-5.03); Red Cell Distribution Width 15.2 % (13.2-15.2)
[2021-10-11 06:32] LABS: Albumin 3.8 g/dL (3.9-5); Calcium 9.4 mg/dL (8.4-10.2)
--- NOTE | 2021-10-11 06:42 | History and Physical Report ---
History of Present Illness Date of examination: 10/10/21 Date of admission: 10/10/21 23:42 Chief complaint: Increasing shortness of breath for 3 days History of present illness: 61-year-old male with atrial fibrillation, CHF, hyperlipidemia, hypertension and type 2 diabetes comes in for increasing shortness of breath for the last 3 days. Shortness of breath with minimal exertion and orthopnea present. Patient has been having shortness of breath for the last 1 month. Patient follows with [facility] [facility]. 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 No fever or chills. Patient has class IV NYHA symptoms. Patient also has swelling of both the lower extremities and the scrotum. Unable to lie flat. No paroxysmal nocturnal dyspnea. - Past Medical History --Hypertension: Yes (took antihypertensives last night) --Heart Attack/AMI: No (NICM EF 35-40%) --Diabetes: Yes --GERD: Yes --Asthma: Yes --Additional medical history: CAD. Atrial fibrillation - Surgical History --No - Social History --Smoking Status: Never Smoker -Family history --Htn - Medications --Home Medications: Home Medications Medication Instructions Recorded Confirmed Last Taken Type Apixaban [Eliquis] 5 mg PO Q12HR #60 tablet 01/05/21 Unknown Rx Aspirin EC [Halfprin EC] 81 mg PO QDAY #30 tablet 01/05/21 Unknown Rx AtorvaSTATin [Lipitor] 40 mg PO QHS #30 tablet 01/05/21 Unknown Rx Losartan [Cozaar] 50 mg PO QDAY #30 tablet 01/05/21 Unknown Rx Metoprolol [Lopressor TAB] 100 mg PO BID #60 tablet 01/05/21 Unknown Rx bisacodyL [Dulcolax suppos] 10 mg [place] QDAY PRN #14 supp.rect 01/05/21 Unknown Rx dilTIAZem CD [Cardizem CD] 240 mg PO QDAY #30 capsule 01/05/21 Unknown Rx glipiZIDE XL [Glucotrol Xl] 5 mg PO QAM #30 tab.er.24 01/05/21 Unknown Rx Furosemide [Lasix TAB] 40 mg PO QDAY #30 tablet 08/21/21 Unknown Rx Review of Systems ROS: Stated complaint: SOB Other details as noted in HPI Comment: All other systems reviewed and negative Constitutional: denies: chills, fever Eyes: denies: eye pain, eye discharge, vision change ENT: denies: ear pain, throat pain Respiratory: shortness of breath, SOB with exertion. denies: cough, wheezing Cardiovascular: chest pain. denies: palpitations Endocrine: no symptoms reported Gastrointestinal: denies: abdominal pain, nausea, diarrhea Genitourinary: denies: urgency, dysuria Musculoskeletal: other (Swelling of lower extremities). denies: back pain, joint swelling, arthralgia Skin: denies: rash, lesions Neurological: denies: headache, weakness, paresthesias Psychiatric: denies: anxiety, depression Hematological/Lymphatic: denies: easy bleeding, easy bruising Medications and Allergies Allergies Allergy/AdvReac Type Severity Reaction Status Date / Time No Known Allergies Allergy Verified 10/10/21 17:30 Home Medications Medication Instructions Recorded Confirmed Last Taken Type Apixaban [Eliquis] 5 mg PO Q12HR #60 tablet 01/05/21 Unknown Rx Aspirin EC [Halfprin EC] 81 mg PO QDAY #30 tablet 01/05/21 Unknown Rx AtorvaSTATin [Lipitor] 40 mg PO QHS #30 tablet 01/05/21 Unknown Rx Losartan [Cozaar] 50 mg PO QDAY #30 tablet 01/05/21 Unknown Rx Metoprolol [Lopressor TAB] 100 mg PO BID #60 tablet 01/05/21 Unknown Rx bisacodyL [Dulcolax suppos] 10 mg [place] QDAY PRN #14 supp.rect 01/05/21 Unknown Rx dilTIAZem CD [Cardizem CD] 240 mg PO QDAY #30 capsule 01/05/21 Unknown Rx glipiZIDE XL [Glucotrol Xl] 5 mg PO QAM #30 tab.er.24 01/05/21 Unknown Rx Furosemide [Lasix TAB] 40 mg PO QDAY #30 tablet 08/21/21 Unknown Rx Active Meds: Active Medications Acetaminophen (Acetaminophen 325 Mg Tab) 650 mg PO Q4H PRN PRN Reason: Pain MILD(1-3)/Fever >100.5/BERUMEN Furosemide (Furosemide 40 Mg/4 Ml Inj) 40 mg IV 0600,1800 IMANI Last Admin: 10/11/21 00:56 Dose: 40 mg Heparin Sodium (Porcine) (Heparin 5,000 Unit/1 Ml Vial) 5,000 unit SUB-Q Q12HR IMANI Metoclopramide HCl (Metoclopramide 10 Mg/2 Ml Inj) 10 mg IV Q6H PRN PRN Reason: Nausea And Vomiting Morphine Sulfate (Morphine 2 Mg/1 Ml Inj) 2 mg IV Q4H PRN PRN Reason: Pain, Moderate (4-6) Ondansetron HCl (Ondansetron 4 Mg/2 Ml Inj) 4 mg IV Q8H PRN PRN Reason: Nausea And Vomiting Oxycodone/Acetaminophen (Oxycodone /Acetaminophen 5-325mg Tab) 1 tab PO Q6H PRN PRN Reason: Pain, Moderate (4-6) Sodium Chloride (Sodium Chloride 0.9% 10 Ml Flush Syringe) 10 ml IV BID IMANI Sodium Chloride (Sodium Chloride 0.9% 10 Ml Flush Syringe) 10 ml IV PRN PRN PRN Reason: LINE FLUSH Exam - Constitutional Vitals: Temp Pulse Resp BP Pulse Ox 88 20 116/74 100 10/11/21 03:15 10/11/21 03:15 10/11/21 06:31 10/11/21 06:31 General appearance: Present: mild distress, well-nourished - EENT Eyes: Present: PERRL ENT: hearing intact, clear oral mucosa - Neck Neck: Present: supple, normal ROM - Respiratory Respiratory effort: normal Respiratory: bilateral: rales - Cardiovascular Heart rate: 78 Rhythm: irregularly irregular Heart Sounds: Present: S1 & S2. Absent: rub, click - Extremities Extremities: no ischemia, pulses symmetrical, No edema Extremity abnormal: edema Peripheral Pulses: within normal limits - Abdominal General gastrointestinal: Present: soft, non-tender, non-distended, normal bowel sounds Male genitourinary: Present: scrotal edema (Severe scrotal edema) - Integumentary Integumentary: Present: clear, warm, dry - Musculoskeletal Musculoskeletal: gait normal, strength equal bilaterally - Psychiatric Psychiatric: appropriate mood/affect, intact judgment & insight - Neurologic Neurologic: CNII-XII intact, moves all extremities HEART Score - HEART Score History: Highly suspicious Age: 45-65 Risk factors: > 3 risk factors or hx of atherosclerotic disease Troponin: Troponin T 0.191 ng/mL (0.00-0.029) H* 10/10/21 18:51 Troponin: 1-3x normal limit - Critical Actions Critical Actions: >7 pts:50-65% risk of adverse cardiac event. Early invasive measures Results - Labs CBC & Chem 7: 10/10/21 17:04 10/11/21 05:03 Labs: Laboratory Last Values WBC 7.4 K/mm3 (4.5-11.0) 10/10/21 17:04 RBC 3.83 M/mm3 (3.65-5.03) 10/10/21 17:04 Hgb 11.7 gm/dl (11.8-15.2) L 10/10/21 17:04 Hct 36.9 % (35.5-45.6) 10/10/21 17:04 MCV 96 fl (84-94) H 10/10/21 17:04 MCH 31 pg (28-32) 10/10/21 17:04 MCHC 32 % (32-34) 10/10/21 17:04 RDW 14.9 % (13.2-15.2) 10/10/21 17:04 Plt Count 261 K/mm3 (140-440) 10/10/21 17:04 Lymph % (Auto) 23.0 % (13.4-35.0) 10/10/21 17:04 Gilliam % (Auto) 12.7 % (0.0-7.3) H 10/10/21 17:04 Eos % (Auto) 2.2 % (0.0-4.3) 10/10/21 17:04 Baso % (Auto) 1.0 % (0.0-1.8) 10/10/21 17:04 Lymph # (Auto) 1.7 K/mm3 (1.2-5.4) 10/10/21 17:04 Gilliam # (Auto) 0.9 K/mm3 (0.0-0.8) H 10/10/21 17:04 Eos # (Auto) 0.2 K/mm3 (0.0-0.4) 10/10/21 17:04 Baso # (Auto) 0.1 K/mm3 (0.0-0.1) 10/10/21 17:04 Seg Neutrophils % 61.1 % (40.0-70.0) 10/10/21 17:04 Seg Neutrophils # 4.5 K/mm3 (1.8-7.7) 10/10/21 17:04 PT 16.9 Sec. (12.2-14.9) H 10/10/21 17:04 INR 1.23 (0.87-1.13) H 10/10/21 17:04 APTT 29.2 Sec. (24.2-36.6) 10/10/21 17:04 Sodium 140 mmol/L (137-145) 10/11/21 05:03 Potassium 4.2 mmol/L (3.6-5.0) 10/11/21 05:03 Chloride 103.1 mmol/L (98-107) 10/11/21 05:03 Carbon Dioxide 23 mmol/L (22-30) 10/11/21 05:03 Anion Gap 18 mmol/L 10/11/21 05:03 BUN 27 mg/dL (9-20) H 10/11/21 05:03 Creatinine 1.6 mg/dL (0.8-1.3) H 10/11/21 05:03 Estimated GFR 53 ml/min 10/11/21 05:03 BUN/Creatinine Ratio 17 % 10/11/21 05:03 Glucose 107 mg/dL (75-100) H 10/11/21 05:03 Lactic Acid 1.50 mmol/L (0.7-2.0) 10/10/21 17:04 Calcium 9.4 mg/dL (8.4-10.2) 10/11/21 05:03 Magnesium 1.80 mg/dL (1.7-2.3) 10/10/21 17:04 Total Bilirubin 0.50 mg/dL (0.1-1.2) 10/11/21 05:03 AST 29 units/L (5-40) 10/11/21 05:03 ALT 29 units/L (7-56) 10/11/21 05:03 Alkaline Phosphatase 100 units/L (35-129) 10/11/21 05:03 Total Creatine Kinase 252 units/L (55-170) H 10/10/21 17:04 CK-MB (CK-2) 7.0 ng/mL (0.0-4.0) H 10/10/21 17:04 CK-MB (CK-2) Rel Index 2.7 (0-4) 10/10/21 17:04 Troponin T 0.191 ng/mL (0.00-0.029) H* 10/10/21 18:51 NT-Pro-B Natriuret Pep 5565 pg/mL (0-900) H 10/10/21 17:04 Total Protein 8.7 g/dL (6.3-8.2) H 10/11/21 05:03 Albumin 3.8 g/dL (3.9-5) L 10/11/21 05:03 Albumin/Globulin Ratio 0.8 % 10/11/21 05:03 Triglycerides 104 mg/dL (2-149) 10/10/21 17:04 Cholesterol 100 mg/dL (50-199) 10/10/21 17:04 LDL Cholesterol Direct 57 mg/dL (50-130) 10/10/21 17:04 HDL Cholesterol 28 mg/dL (40-59) L 10/10/21 17:04 Cholesterol/HDL Ratio 3.57 % 10/10/21 17:04 Lipase 18 units/L (13-60) 10/10/21 17:04 Urine Color Yellow (Yellow) 10/10/21 Unknown Urine Turbidity Clear (Clear) 10/10/21 Unknown Urine pH 5.0 (5.0-7.0) 10/10/21 Unknown Ur Specific [place] 1.011 (1.003-1.030) 10/10/21 Unknown Urine Protein 100 mg/dl mg/dL (Negative) 10/10/21 Unknown Urine Glucose (UA) Neg mg/dL (Negative) 10/10/21 Unknown Urine Ketones Neg mg/dL (Negative) 10/10/21 Unknown Urine Blood Sm (Negative) 10/10/21 Unknown Urine Nitrite Neg (Negative) 10/10/21 Unknown Urine Bilirubin Neg (Negative) 10/10/21 Unknown Urine Urobilinogen < 2.0 mg/dL (<2.0) 10/10/21 Unknown Ur Leukocyte Esterase Neg (Negative) 10/10/21 Unknown Urine WBC (Auto) < 1.0 /HPF (0.0-6.0) 10/10/21 Unknown Urine RBC (Auto) < 1.0 /HPF (0.0-6.0) 10/10/21 Unknown Urine Mucus Few /HPF 10/10/21 Unknown Urine Opiates Screen Negative 10/10/21 Unknown Urine Methadone Screen Negative 10/10/21 Unknown Ur Barbiturates Screen Negative 10/10/21 Unknown Ur Phencyclidine Scrn Negative 10/10/21 Unknown Ur Amphetamines Screen Negative 10/10/21 Unknown U Benzodiazepines Scrn Negative 10/10/21 Unknown Urine Cocaine Screen Negative 10/10/21 Unknown U Marijuana (THC) Screen Negative 10/10/21 Unknown Drugs of Abuse Note Disclamer 10/10/21 Unknown Short CBC 10/10/21 Range/Units 17:04 WBC 7.4 (4.5-11.0) K/mm3 Hgb 11.7 L (11.8-15.2) gm/dl Hct 36.9 (35.5-45.6) % Plt Count 261 (140-440) K/mm3 BMP 10/10/21 10/11/21 17:04 05:03 Sodium 141 140 Potassium 4.1 4.2 Chloride 106.7 103.1 Carbon Dioxide 24 23 BUN 23 H 27 H Creatinine 1.2 1.6 H Glucose 161 H 107 H Calcium 9.1 9.4 Cardiac Enzymes 10/10/21 10/10/21 Range/Units 17:04 18:51 Total Creatine Kinase 252 H (55-170) units/L CK-MB (CK-2) 7.0 H (0.0-4.0) ng/mL Troponin T 0.178 H* 0.191 H* (0.00-0.029) ng/mL Liver Function 10/10/21 10/11/21 Range/Units 17:04 05:03 Total Bilirubin 0.60 0.50 (0.1-1.2) mg/dL AST 27 29 (5-40) units/L ALT 25 29 (7-56) units/L Alkaline Phosphatase 84 100 (35-129) units/L Albumin 3.6 L 3.8 L (3.9-5) g/dL Urine 10/10/21 Range/Units Unknown Urine Color Yellow (Yellow) Urine pH 5.0 (5.0-7.0) Ur Specific [place] 1.011 (1.003-1.030) Urine Protein 100 mg/dl (Negative) mg/dL Urine Glucose (UA) Neg (Negative) mg/dL Microbiology: Microbiology 10/10/21 17:04 Peripheral/Venous Blood Culture - Preliminary Culture in Progress 10/10/21 17:04 Peripheral/Venous Blood Culture - Preliminary Culture in Progress - Imaging and Cardiology EKG: report reviewed (Sinus tachycardia) Chest x-ray: report reviewed Imaging and Cardiology: Chest x-ray Significant congestive recurrence was noted. Increased density seen in the right base which could relate to her congestive dialysis though mild developing infiltrate is not excluded. No definite pleural effusions. No pneumothorax. Assessment and Plan Advance Directives: Yes (Full code) VTE prophylaxis?: Chemical Plan of care discussed with patient/family: Yes - Patient Problems (1) Acute respiratory failure with hypoxia Current Visit: Yes Status: Acute Plan to address problem: Patient was hypoxic initially Needs oxygen supplementation and titrate as necessary (2) Acute HFrEF (heart failure with reduced ejection fraction) Current Visit: No Status: Acute Plan to address problem: IV Lasix 40 mg every 12 and Aldactone initiated Cardiology consult requested Echocardiogram requested for ejection fraction and valve function and wall motion abnormalities Daily weights Daily intake and output (3) Atrial fibrillation Current Visit: Yes Status: Chronic Qualifiers: Atrial fibrillation type: paroxysmal Qualified Code(s): I48.0 - Paroxysmal atrial fibrillation Plan to address problem: Continue Eliquis (4) Hypertension Current Visit: Yes Status: Chronic Qualifiers: Hypertension type: primary hypertension Qualified Code(s): I10 - Essential (primary) hypertension Plan to address problem: Continue antihypertensives and adjust medications as necessary (5) T2DM (type 2 diabetes mellitus) Current Visit: Yes Status: Chronic Qualifiers: 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 Patient is full code. Patient acknowledges understanding and agreement with care plan. +30 minutes.
--- NOTE | 2021-10-11 09:06 | Electrocardiograph Report ---
[facility] Test Date: 2021-10-10 Test Time: 16:51:22 Pat Name: MARITZA THOMAS Department: Room: A460 1 Gender: M Rn Critical Care: NURSE : 1960 Requested By: YAHAIRA WILL Order Number: [id number] Reading MD: Parker Mcgraw Measurements Intervals [place] Rate: 125 P: ID: QRS: 119 QRSD: 90 T: -73 QT: 315 QTc: 454 Interpretive Statements Atrial fibrillation Right axis deviation Nonspecific T abnormalities, lateral leads Compared to ECG 08/21/2021 21:58:17 T-wave abnormality now present Ventricular premature complex(es) no longer present Electronically Signed On 10-11-2021 9:06:22 EDT by Parker Mcgraw
[2021-10-11] MEDS: INSULIN LISPRO 100 UNIT/ML SUB-Q SCH ×4 (09:11→21:29)
[2021-10-11] MEDS ORDERED: dilTIAZem CD 240 MG CAP PO SCH (10:00)
[2021-10-11] MEDS ORDERED: NON-FORMULARY EACH (Apixaban 5 MG Tablet) PO SCH (10:00)
[2021-10-11] MEDS ORDERED: HEPARIN 5,000 UNIT/1 ML VIAL SUB-Q SCH (10:00)
[2021-10-11 10:44] LABS: Basophils % (Manual) 0 % (0.0-1.8); Total Cells Counted 100
[2021-10-11 10:45] LABS: Platelet Estimate Consistent w Auto; Target Cells 1+
--- NOTE | 2021-10-11 11:53 | Consultation ---
History of Present Illness Consult date: 10/11/21 Requesting physician: SENG MAHONEY Consult reason: congestive heart failure History of present illness: Patient is 61 y/o male, who previously follows with Dr. Moreau of our group, with a pmhx of Afib/flutter s/p cardioversion 06/17/2020 HTN, HFrEF, DM, Obesity, and GERD who presented to the ED for complaint of SOB that has been going on for the last month or 2 however he reports that it has been significantly worse in the last 2 to 3 days. Patient reports that over the last 2 to 3 days he has shortness of breath with minimal exertion, orthopnea, and PND. Patient reports that he is compliant with medications and diet restrictions. However patient states that he is noncompliant with his fluid restrictions and states that he drinks lots of water. Patient has also noticed that over the last month he has had increasing bilateral lower extremity edema. In the ED patient was found to have elevated BNP, elevated troponin and elevated creatinine. Of note patient was previously seen by our practice in December however patient never followed up because [place] and just returned within the last month or 2. Patient denies any complaint of chest pain, nausea, vom iting, palpitations, diaphoresis or lightheadedness. Cardiology is consulted for CHF. Past History Past Medical History: atrial fib, diabetes, heart failure, hypertension, hyperlipidemia Past Surgical History: No surgical history Social history: no significant social history Family history: diabetes, hypertension Medications and Allergies Allergies Allergy/AdvReac Type Severity Reaction Status Date / Time No Known Allergies Allergy Verified 10/10/21 17:30 Home Medications Medication Instructions Recorded Confirmed Last Taken Type Apixaban [Eliquis] 5 mg PO Q12HR #60 tablet 01/05/21 Unknown Rx Aspirin EC [Halfprin EC] 81 mg PO QDAY #30 tablet 01/05/21 Unknown Rx AtorvaSTATin [Lipitor] 40 mg PO QHS #30 tablet 01/05/21 Unknown Rx Losartan [Cozaar] 50 mg PO QDAY #30 tablet 01/05/21 Unknown Rx Metoprolol [Lopressor TAB] 100 mg PO BID #60 tablet 01/05/21 Unknown Rx bisacodyL [Dulcolax suppos] 10 mg NE QDAY PRN #14 supp.rect 01/05/21 Unknown Rx dilTIAZem CD [Cardizem CD] 240 mg PO QDAY #30 capsule 01/05/21 Unknown Rx glipiZIDE XL [Glucotrol Xl] 5 mg PO QAM #30 tab.er.24 01/05/21 Unknown Rx Furosemide [Lasix TAB] 40 mg PO QDAY #30 tablet 08/21/21 Unknown Rx Active Meds: Active Medications Acetaminophen (Acetaminophen 325 Mg Tab) 650 mg PO Q4H PRN PRN Reason: Pain MILD(1-3)/Fever >100.5/BERUMEN Amiodarone HCl (Amiodarone 200 Mg Tab) 200 mg PO BID [facility] Apixaban (Apixaban 5 Mg Tab) 5 mg PO Q12HR [facility]; Protocol Aspirin (Aspirin Ec 81 Mg Tab) 81 mg PO QDAY IMANI Atorvastatin Calcium (Atorvastatin 40 Mg Tab) 40 mg PO QHS [facility] Bisacodyl (Bisacodyl 10 Mg Rect Supp) 10 mg NE QDAY PRN PRN Reason: Constipation Furosemide (Furosemide 40 Mg/4 Ml Inj) 40 mg IV 0600,1800 [facility] Last Admin: 10/11/21 09:11 Dose: 40 mg Glipizide (Glipizide Xl 5 Mg Tab) 5 mg PO QAM [facility] Insulin Human Lispro (Insulin Lispro 100 Unit/Ml) 0 unit SUB-Q ACHS [facility]; Protocol Last Admin: 10/11/21 09:11 Dose: Not Given Losartan Potassium (Losartan 50 Mg Tab) 50 mg PO QDAY [facility] Metoclopramide HCl (Metoclopramide 10 Mg/2 Ml Inj) 10 mg IV Q6H PRN PRN Reason: Nausea And Vomiting Metoprolol Tartrate (Metoprolol Tartrate 100 Mg Tab) 100 mg PO BID [facility] Morphine Sulfate (Morphine 2 Mg/1 Ml Inj) 2 mg IV Q4H PRN PRN Reason: Pain, Moderate (4-6) Ondansetron HCl (Ondansetron 4 Mg/2 Ml Inj) 4 mg IV Q8H PRN PRN Reason: Nausea And Vomiting Oxycodone/Acetaminophen (Oxycodone /Acetaminophen 5-325mg Tab) 1 tab PO Q6H PRN PRN Reason: Pain, Moderate (4-6) Sodium Chloride (Sodium Chloride 0.9% 10 Ml Flush Syringe) 10 ml IV BID [facility] Sodium Chloride (Sodium Chloride 0.9% 10 Ml Flush Syringe) 10 ml IV PRN PRN PRN Reason: LINE FLUSH Review of Systems Constitutional: no weight loss, no weight gain Ears, nose, mouth and throat: no sinus pressure, no sinus pain Cardiovascular: orthopnea, edema, shortness of breath, dyspnea on exertion, paroxysmal nocturnal dyspnea, no chest pain, no palpitations Respiratory: shortness of breath, dyspnea on exertion Gastrointestinal: no abdominal pain, no nausea, no vomiting Musculoskeletal: no neck stiffness, no neck pain Integumentary: no rash, no pruritis, no redness Neurological: no head injury, no transient paralysis Psychiatric: no anxiety, no memory loss Endocrine: no cold intolerance, no heat intolerance Physical Examination Vital Signs Pulse BP Pulse Ox 120 H 155/110 99 10/10/21 16:16 10/10/21 16:16 10/10/21 16:16 General appearance: no acute distress HEENT: Positive: PERRL, Normocephaly Neck: Positive: trachea midline Cardiac: Positive: irregularly irregular Lungs: Positive: Decreased Breath Sounds, Wheezes Neuro: Positive: Grossly Intact Abdomen: Positive: Active Bowel Sounds Skin: Negative: Rash, Suspicious Lesions, Ulceration Extremities: Present: upper extr. pulses, edema Results 10/11/21 05:03 10/11/21 05:03 Cardiac Enzymes 10/10/21 10/10/21 10/10/21 Range/Units 17:04 17:04 17:04 WBC 7.4 (4.5-11.0) K/mm3 RBC 3.83 (3.65-5.03) M/mm3 Hgb 11.7 L (11.8-15.2) gm/dl Hct 36.9 (35.5-45.6) % MCV 96 H (84-94) fl MCH 31 (28-32) pg MCHC 32 (32-34) % RDW 14.9 (13.2-15.2) % Plt Count 261 (140-440) K/mm3 Lymph % (Auto) 23.0 (13.4-35.0) % [place] % (Auto) 12.7 H (0.0-7.3) % Eos % (Auto) 2.2 (0.0-4.3) % Baso % (Auto) 1.0 (0.0-1.8) % Lymph # (Auto) 1.7 (1.2-5.4) K/mm3 [place] # (Auto) 0.9 H (0.0-0.8) K/mm3 Eos # (Auto) 0.2 (0.0-0.4) K/mm3 Baso # (Auto) 0.1 (0.0-0.1) K/mm3 Add Manual Diff Total Counted Seg Neutrophils % 61.1 (40.0-70.0) % Seg Neuts % (Manual) (40.0-70.0) % Band Neutrophils % % Lymphocytes % (Manual) (13.4-35.0) % Reactive Lymphs % (Man) % Monocytes % (Manual) (0.0-7.3) % Eosinophils % (Manual) (0.0-4.3) % Basophils % (Manual) (0.0-1.8) % Metamyelocytes % % Myelocytes % % Promyelocytes % % Blast Cells % % Nucleated RBC % (0.0-0.9) % Seg Neutrophils # 4.5 (1.8-7.7) K/mm3 Seg Neutrophils # Man (1.8-7.7) K/mm3 Band Neutrophils # K/mm3 Lymphocytes # (Manual) (1.2-5.4) K/mm3 Abs React Lymphs (Man) K/mm3 Monocytes # (Manual) (0.0-0.8) K/mm3 Eosinophils # (Manual) (0.0-0.4) K/mm3 Basophils # (Manual) (0.0-0.1) K/mm3 Metamyelocytes # K/mm3 Myelocytes # K/mm3 Promyelocytes # K/mm3 Blast Cells # K/mm3 WBC Morphology Hypersegmented Neuts Hyposegmented Neuts Hypogranular Neuts Smudge Cells Toxic Granulation Toxic Vacuolation Dohle Bodies Pelger-Huet Anomaly Su Rods Platelet Estimate Clumped Platelets Plt Clumps, EDTA Large Platelets Giant Platelets Platelet Satelliting Plt Morphology Comment RBC Morphology Dimorphic RBCs Polychromasia Hypochromasia Poikilocytosis Anisocytosis Microcytosis Macrocytosis Spherocytes Pappenheimer Bodies Sickle Cells Target Cells Tear Drop Cells Ovalocytes Helmet Cells Polanco-[place] Bodies [place] Rings Josephine Cells Bite Cells Crenated Cell Elliptocytes Acanthocytes (Spur) Rouleaux Hemoglobin C Crystals Schistocytes Malaria parasites Kartik Bodies Hem Pathologist Commnt PT 16.9 H (12.2-14.9) Sec. INR 1.23 H (0.87-1.13) APTT 29.2 (24.2-36.6) Sec. Sodium 141 (137-145) mmol/L Potassium 4.1 (3.6-5.0) mmol/L Chloride 106.7 (98-107) mmol/L Carbon Dioxide 24 (22-30) mmol/L Anion Gap 14 mmol/L BUN 23 H (9-20) mg/dL Creatinine 1.2 (0.8-1.3) mg/dL Estimated GFR > 60 ml/min BUN/Creatinine Ratio 19 % Glucose 161 H (75-100) mg/dL POC Glucose (70-105) mg/dL Lactic Acid (0.7-2.0) mmol/L Calcium 9.1 (8.4-10.2) mg/dL Magnesium 1.80 (1.7-2.3) mg/dL Total Bilirubin 0.60 (0.1-1.2) mg/dL AST 27 (5-40) units/L ALT 25 (7-56) units/L Alkaline Phosphatase 84 (35-129) units/L Total Creatine Kinase 252 H (55-170) units/L CK-MB (CK-2) 7.0 H (0.0-4.0) ng/mL CK-MB (CK-2) Rel Index 2.7 (0-4) Troponin T 0.178 H* (0.00-0.029) ng/mL NT-Pro-B Natriuret Pep (0-900) pg/mL Total Protein 8.5 H (6.3-8.2) g/dL Albumin 3.6 L (3.9-5) g/dL Albumin/Globulin Ratio 0.7 % Triglycerides 104 (2-149) mg/dL Cholesterol 100 (50-199) mg/dL LDL Cholesterol Direct 57 (50-130) mg/dL HDL Cholesterol 28 L (40-59) mg/dL Cholesterol/HDL Ratio 3.57 % Lipase 18 (13-60) units/L Urine Color (Yellow) Urine Turbidity (Clear) Urine pH (5.0-7.0) Ur Specific [place] (1.003-1.030) Urine Protein (Negative) mg/dL Urine Glucose (UA) (Negative) mg/dL Urine Ketones (Negative) mg/dL Urine Blood (Negative) Urine Nitrite (Negative) Urine Bilirubin (Negative) Urine Urobilinogen (<2.0) mg/dL Ur Leukocyte Esterase (Negative) Urine WBC (Auto) (0.0-6.0) /HPF Urine RBC (Auto) (0.0-6.0) /HPF Urine Mucus /HPF Urine Opiates Screen Urine Methadone Screen Ur Barbiturates Screen Ur Phencyclidine Scrn Ur Amphetamines Screen U Benzodiazepines Scrn Urine Cocaine Screen U Marijuana (THC) Screen Drugs of Abuse Note 10/10/21 10/10/21 10/10/21 Range/Units 17:04 17:04 18:51 WBC (4.5-11.0) K/mm3 RBC (3.65-5.03) M/mm3 Hgb (11.8-15.2) gm/dl Hct (35.5-45.6) % MCV (84-94) fl MCH (28-32) pg MCHC (32-34) % RDW (13.2-15.2) % Plt Count (140-440) K/mm3 Lymph % (Auto) (13.4-35.0) % [place] % (Auto) (0.0-7.3) % Eos % (Auto) (0.0-4.3) % Baso % (Auto) (0.0-1.8) % Lymph # (Auto) (1.2-5.4) K/mm3 [place] # (Auto) (0.0-0.8) K/mm3 Eos # (Auto) (0.0-0.4) K/mm3 Baso # (Auto) (0.0-0.1) K/mm3 Add Manual Diff Total Counted Seg Neutrophils % (40.0-70.0) % Seg Neuts % (Manual) (40.0-70.0) % Band Neutrophils % % Lymphocytes % (Manual) (13.4-35.0) % Reactive Lymphs % (Man) % Monocytes % (Manual) (0.0-7.3) % Eosinophils % (Manual) (0.0-4.3) % Basophils % (Manual) (0.0-1.8) % Metamyelocytes % % Myelocytes % % Promyelocytes % % Blast Cells % % Nucleated RBC % (0.0-0.9) % Seg Neutrophils # (1.8-7.7) K/mm3 Seg Neutrophils # Man (1.8-7.7) K/mm3 Band Neutrophils # K/mm3 Lymphocytes # (Manual) (1.2-5.4) K/mm3 Abs React Lymphs (Man) K/mm3 Monocytes # (Manual) (0.0-0.8) K/mm3 Eosinophils # (Manual) (0.0-0.4) K/mm3 Basophils # (Manual) (0.0-0.1) K/mm3 Metamyelocytes # K/mm3 Myelocytes # K/mm3 Promyelocytes # K/mm3 Blast Cells # K/mm3 WBC Morphology Hypersegmented Neuts Hyposegmented Neuts Hypogranular Neuts Smudge Cells Toxic Granulation Toxic Vacuolation Dohle Bodies Pelger-Huet Anomaly Su Rods Platelet Estimate Clumped Platelets Plt Clumps, EDTA Large Platelets Giant Platelets Platelet Satelliting Plt Morphology Comment RBC Morphology Dimorphic RBCs Polychromasia Hypochromasia Poikilocytosis Anisocytosis Microcytosis Macrocytosis Spherocytes Pappenheimer Bodies Sickle Cells Target Cells Tear Drop Cells Ovalocytes Helmet Cells Polanco-[place] Bodies [place] Rings Josephine Cells Bite Cells Crenated Cell Elliptocytes Acanthocytes (Spur) Rouleaux Hemoglobin C Crystals Schistocytes Malaria parasites Kartik Bodies Hem Pathologist Commnt PT (12.2-14.9) Sec. INR (0.87-1.13) APTT (24.2-36.6) Sec. Sodium (137-145) mmol/L Potassium (3.6-5.0) mmol/L Chloride (98-107) mmol/L Carbon Dioxide (22-30) mmol/L Anion Gap mmol/L BUN (9-20) mg/dL Creatinine (0.8-1.3) mg/dL Estimated GFR ml/min BUN/Creatinine Ratio % Glucose (75-100) mg/dL POC Glucose (70-105) mg/dL Lactic Acid 1.50 (0.7-2.0) mmol/L Calcium (8.4-10.2) mg/dL Magnesium (1.7-2.3) mg/dL Total Bilirubin (0.1-1.2) mg/dL AST (5-40) units/L ALT (7-56) units/L Alkaline Phosphatase (35-129) units/L Total Creatine Kinase (55-170) units/L CK-MB (CK-2) (0.0-4.0) ng/mL CK-MB (CK-2) Rel Index (0-4) Troponin T 0.191 H* (0.00-0.029) ng/mL NT-Pro-B Natriuret Pep 5565 H (0-900) pg/mL Total Protein (6.3-8.2) g/dL Albumin (3.9-5) g/dL Albumin/Globulin Ratio % Triglycerides (2-149) mg/dL Cholesterol (50-199) mg/dL LDL Cholesterol Direct (50-130) mg/dL HDL Cholesterol (40-59) mg/dL Cholesterol/HDL Ratio % Lipase (13-60) units/L Urine Color (Yellow) Urine Turbidity (Clear) Urine pH (5.0-7.0) Ur Specific [place] (1.003-1.030) Urine Protein (Negative) mg/dL Urine Glucose (UA) (Negative) mg/dL Urine Ketones (Negative) mg/dL Urine Blood (Negative) Urine Nitrite (Negative) Urine Bilirubin (Negative) Urine Urobilinogen (<2.0) mg/dL Ur Leukocyte Esterase (Negative) Urine WBC (Auto) (0.0-6.0) /HPF Urine RBC (Auto) (0.0-6.0) /HPF Urine Mucus /HPF Urine Opiates Screen Urine Methadone Screen Ur Barbiturates Screen Ur Phencyclidine Scrn Ur Amphetamines Screen U Benzodiazepines Scrn Urine Cocaine Screen U Marijuana (THC) Screen Drugs of Abuse Note 10/10/21 10/10/21 10/11/21 Range/Units Unknown Unknown 05:03 WBC 8.9 (4.5-11.0) K/mm3 RBC 3.91 (3.65-5.03) M/mm3 Hgb 12.0 (11.8-15.2) gm/dl Hct 37.9 (35.5-45.6) % MCV 97 H (84-94) fl MCH 31 (28-32) pg MCHC 32 (32-34) % RDW 15.2 (13.2-15.2) % Plt Count 287 (140-440) K/mm3 Lymph % (Auto) (13.4-35.0) % [place] % (Auto) Dampener Operator (0.0-7.3) % Eos % (Auto) (0.0-4.3) % Baso % (Auto) (0.0-1.8) % Lymph # (Auto) (1.2-5.4) K/mm3 [place] # (Auto) (0.0-0.8) K/mm3 Eos # (Auto) (0.0-0.4) K/mm3 Baso # (Auto) (0.0-0.1) K/mm3 Add Manual Diff Complete Total Counted 100 Seg Neutrophils % (40.0-70.0) % Seg Neuts % (Manual) 48.0 (40.0-70.0) % Band Neutrophils % 0 % Lymphocytes % (Manual) 32.0 (13.4-35.0) % Reactive Lymphs % (Man) 2.0 % Monocytes % (Manual) 16.0 H (0.0-7.3) % Eosinophils % (Manual) 1.0 (0.0-4.3) % Basophils % (Manual) 0 (0.0-1.8) % Metamyelocytes % 1.0 % Myelocytes % 0 % Promyelocytes % 0 % Blast Cells % 0 % Nucleated RBC % 2.0 H (0.0-0.9) % Seg Neutrophils # (1.8-7.7) K/mm3 Seg Neutrophils # Man 4.3 (1.8-7.7) K/mm3 Band Neutrophils # 0.0 K/mm3 Lymphocytes # (Manual) 2.8 (1.2-5.4) K/mm3 Abs React Lymphs (Man) 0.2 K/mm3 Monocytes # (Manual) 1.4 H (0.0-0.8) K/mm3 Eosinophils # (Manual) 0.1 (0.0-0.4) K/mm3 Basophils # (Manual) 0.0 (0.0-0.1) K/mm3 Metamyelocytes # 0.1 K/mm3 Myelocytes # 0.0 K/mm3 Promyelocytes # 0.0 K/mm3 Blast Cells # 0.0 K/mm3 WBC Morphology Not Reportable Hypersegmented Neuts Not Reportable Hyposegmented Neuts Not Reportable Hypogranular Neuts Not Reportable Smudge Cells Not Reportable Toxic Granulation Not Reportable Toxic Vacuolation Not Reportable Dohle Bodies Not Reportable Pelger-Huet Anomaly Not Reportable Su Rods Not Reportable Platelet Estimate Consistent w auto Clumped Platelets Not Reportable Plt Clumps, EDTA Not Reportable Large Platelets Not Reportable Giant Platelets Not Reportable Platelet Satelliting Not Reportable Plt Morphology Comment Not Reportable RBC Morphology Not Reportable Dimorphic RBCs Not Reportable Polychromasia Not Reportable Hypochromasia Not Reportable Poikilocytosis Not Reportable Anisocytosis Not Reportable Microcytosis Not Reportable Macrocytosis Not Reportable Spherocytes Not Reportable Pappenheimer Bodies Not Reportable Sickle Cells Not Reportable Target Cells 1+ Tear Drop Cells Not Reportable Ovalocytes Not Reportable Helmet Cells Not Reportable Polanco-[place] Bodies Not Reportable [place] Rings Not Reportable Josephine Cells Not Reportable Bite Cells Not Reportable Crenated Cell Not Reportable Elliptocytes Not Reportable Acanthocytes (Spur) Not Reportable Rouleaux Not Reportable Hemoglobin C Crystals Not Reportable Schistocytes Not Reportable Malaria parasites Not Reportable Kartik Bodies Not Reportable Hem Pathologist Commnt No PT (12.2-14.9) Sec. INR (0.87-1.13) APTT (24.2-36.6) Sec. Sodium (137-145) mmol/L Potassium (3.6-5.0) mmol/L Chloride (98-107) mmol/L Carbon Dioxide (22-30) mmol/L Anion Gap mmol/L BUN (9-20) mg/dL Creatinine (0.8-1.3) mg/dL Estimated GFR ml/min BUN/Creatinine Ratio % Glucose (75-100) mg/dL POC Glucose (70-105) mg/dL Lactic Acid (0.7-2.0) mmol/L Calcium (8.4-10.2) mg/dL Magnesium (1.7-2.3) mg/dL Total Bilirubin (0.1-1.2) mg/dL AST (5-40) units/L ALT (7-56) units/L Alkaline Phosphatase (35-129) units/L Total Creatine Kinase (55-170) units/L CK-MB (CK-2) (0.0-4.0) ng/mL CK-MB (CK-2) Rel Index (0-4) Troponin T (0.00-0.029) ng/mL NT-Pro-B Natriuret Pep (0-900) pg/mL Total Protein (6.3-8.2) g/dL Albumin (3.9-5) g/dL Albumin/Globulin Ratio % Triglycerides (2-149) mg/dL Cholesterol (50-199) mg/dL LDL Cholesterol Direct (50-130) mg/dL HDL Cholesterol (40-59) mg/dL Cholesterol/HDL Ratio % Lipase (13-60) units/L Urine Color Yellow (Yellow) Urine Turbidity Clear (Clear) Urine pH 5.0 (5.0-7.0) Ur Specific [place] 1.011 (1.003-1.030) Urine Protein 100 mg/dl (Negative) mg/dL Urine Glucose (UA) Neg (Negative) mg/dL Urine Ketones Neg (Negative) mg/dL Urine Blood Sm (Negative) Urine Nitrite Neg (Negative) Urine Bilirubin Neg (Negative) Urine Urobilinogen < 2.0 (<2.0) mg/dL Ur Leukocyte Esterase Neg (Negative) Urine WBC (Auto) < 1.0 (0.0-6.0) /HPF Urine RBC (Auto) < 1.0 (0.0-6.0) /HPF Urine Mucus Few /HPF Urine Opiates Screen Negative Urine Methadone Screen Negative Ur Barbiturates Screen Negative Ur Phencyclidine Scrn Negative Ur Amphetamines Screen Negative U Benzodiazepines Scrn Negative Urine Cocaine Screen Negative U Marijuana (THC) Screen Negative Drugs of Abuse Note Disclamer 10/11/21 10/11/21 Range/Units 05:03 07:58 WBC (4.5-11.0) K/mm3 RBC (3.65-5.03) M/mm3 Hgb (11.8-15.2) gm/dl Hct (35.5-45.6) % MCV (84-94) fl MCH (28-32) pg MCHC (32-34) % RDW (13.2-15.2) % Plt Count (140-440) K/mm3 Lymph % (Auto) (13.4-35.0) % [place] % (Auto) (0.0-7.3) % Eos % (Auto) (0.0-4.3) % Baso % (Auto) (0.0-1.8) % Lymph # (Auto) (1.2-5.4) K/mm3 [place] # (Auto) (0.0-0.8) K/mm3 Eos # (Auto) (0.0-0.4) K/mm3 Baso # (Auto) (0.0-0.1) K/mm3 Add Manual Diff Total Counted Seg Neutrophils % (40.0-70.0) % Seg Neuts % (Manual) (40.0-70.0) % Band Neutrophils % % Lymphocytes % (Manual) (13.4-35.0) % Reactive Lymphs % (Man) % Monocytes % (Manual) (0.0-7.3) % Eosinophils % (Manual) (0.0-4.3) % Basophils % (Manual) (0.0-1.8) % Metamyelocytes % % Myelocytes % % Promyelocytes % % Blast Cells % % Nucleated RBC % (0.0-0.9) % Seg Neutrophils # (1.8-7.7) K/mm3 Seg Neutrophils # Man (1.8-7.7) K/mm3 Band Neutrophils # K/mm3 Lymphocytes # (Manual) (1.2-5.4) K/mm3 Abs React Lymphs (Man) K/mm3 Monocytes # (Manual) (0.0-0.8) K/mm3 Eosinophils # (Manual) (0.0-0.4) K/mm3 Basophils # (Manual) (0.0-0.1) K/mm3 Metamyelocytes # K/mm3 Myelocytes # K/mm3 Promyelocytes # K/mm3 Blast Cells # K/mm3 WBC Morphology Hypersegmented Neuts Hyposegmented Neuts Hypogranular Neuts Smudge Cells Toxic Granulation Toxic Vacuolation Dohle Bodies Pelger-Huet Anomaly Su Rods Platelet Estimate Clumped Platelets Plt Clumps, EDTA Large Platelets Giant Platelets Platelet Satelliting Plt Morphology Comment RBC Morphology Dimorphic RBCs Polychromasia Hypochromasia Poikilocytosis Anisocytosis Microcytosis Macrocytosis Spherocytes Pappenheimer Bodies Sickle Cells Target Cells Tear Drop Cells Ovalocytes Helmet Cells Polanco-[place] Bodies [place] Rings Scribner Cells Bite Cells Crenated Cell Elliptocytes Acanthocytes (Spur) Rouleaux Hemoglobin C Crystals Schistocytes Malaria parasites Kartik Bodies Hem Pathologist Commnt PT (12.2-14.9) Sec. INR (0.87-1.13) APTT (24.2-36.6) Sec. Sodium 140 (137-145) mmol/L Potassium 4.2 (3.6-5.0) mmol/L Chloride 103.1 (98-107) mmol/L Carbon Dioxide 23 (22-30) mmol/L Anion Gap 18 mmol/L BUN 27 H (9-20) mg/dL Creatinine 1.6 H (0.8-1.3) mg/dL Estimated GFR 53 ml/min BUN/Creatinine Ratio 17 % Glucose 107 H (75-100) mg/dL POC Glucose 147 H (70-105) mg/dL Lactic Acid (0.7-2.0) mmol/L Calcium 9.4 (8.4-10.2) mg/dL Magnesium (1.7-2.3) mg/dL Total Bilirubin 0.50 (0.1-1.2) mg/dL AST 29 (5-40) units/L ALT 29 (7-56) units/L Alkaline Phosphatase 100 (35-129) units/L Total Creatine Kinase (55-170) units/L CK-MB (CK-2) (0.0-4.0) ng/mL CK-MB (CK-2) Rel Index (0-4) Troponin T (0.00-0.029) ng/mL NT-Pro-B Natriuret Pep (0-900) pg/mL Total Protein 8.7 H (6.3-8.2) g/dL Albumin 3.8 L (3.9-5) g/dL Albumin/Globulin Ratio 0.8 % Triglycerides (2-149) mg/dL Cholesterol (50-199) mg/dL LDL Cholesterol Direct (50-130) mg/dL HDL Cholesterol (40-59) mg/dL Cholesterol/HDL Ratio % Lipase (13-60) units/L Urine Color (Yellow) Urine Turbidity (Clear) Urine pH (5.0-7.0) Ur Specific [place] (1.003-1.030) Urine Protein (Negative) mg/dL Urine Glucose (UA) (Negative) mg/dL Urine Ketones (Negative) mg/dL Urine Blood (Negative) Urine Nitrite (Negative) Urine Bilirubin (Negative) Urine Urobilinogen (<2.0) mg/dL Ur Leukocyte Esterase (Negative) Urine WBC (Auto) (0.0-6.0) /HPF Urine RBC (Auto) (0.0-6.0) /HPF Urine Mucus /HPF Urine Opiates Screen Urine Methadone Screen Ur Barbiturates Screen Ur Phencyclidine Scrn Ur Amphetamines Screen U Benzodiazepines Scrn Urine Cocaine Screen U Marijuana (THC) Screen Drugs of Abuse Note Coagulation 10/10/21 Range/Units 17:04 PT 16.9 H (12.2-14.9) Sec. INR 1.23 H (0.87-1.13) APTT 29.2 (24.2-36.6) Sec. Lipids 10/10/21 Range/Units 17:04 Triglycerides 104 (2-149) mg/dL Cholesterol 100 (50-199) mg/dL HDL Cholesterol 28 L (40-59) mg/dL Cholesterol/HDL Ratio 3.57 % CBC 10/10/21 10/11/21 Range/Units 17:04 05:03 WBC 7.4 8.9 (4.5-11.0) K/mm3 RBC 3.83 3.91 (3.65-5.03) M/mm3 Hgb 11.7 L 12.0 (11.8-15.2) gm/dl Hct 36.9 37.9 (35.5-45.6) % Plt Count 261 287 (140-440) K/mm3 Lymph # (Auto) 1.7 (1.2-5.4) K/mm3 [place] # (Auto) 0.9 H (0.0-0.8) K/mm3 Eos # (Auto) 0.2 (0.0-0.4) K/mm3 Baso # (Auto) 0.1 (0.0-0.1) K/mm3 Comprehensive Metabolic Panel 10/10/21 10/11/21 Range/Units 17:04 05:03 Sodium 141 140 (137-145) mmol/L Potassium 4.1 4.2 (3.6-5.0) mmol/L Chloride 106.7 103.1 (98-107) mmol/L Carbon Dioxide 24 23 (22-30) mmol/L BUN 23 H 27 H (9-20) mg/dL Creatinine 1.2 1.6 H (0.8-1.3) mg/dL Glucose 161 H 107 H (75-100) mg/dL Calcium 9.1 9.4 (8.4-10.2) mg/dL AST 27 29 (5-40) units/L ALT 25 29 (7-56) units/L Alkaline Phosphatase 84 100 (35-129) units/L Total Protein 8.5 H 8.7 H (6.3-8.2) g/dL Albumin 3.6 L 3.8 L (3.9-5) g/dL - Imaging and Cardiology Echo: pending, report reviewed EKG interpretations - Telemetry EKG Rhythm: Atrial Fibrillation - EKG Supraventricular dysrhythmia: atrial fibrillation Ventricular dysrhythmias: ventricular premature com Repolarization changes or abnormalities: nonspecific abnormality, ST segment, and/or T wave Assessment and Plan Patient is 61 y/o male, who previously follows with Dr. Moreau of our group, with a pmhx of Afib/flutter s/p cardioversion 06/17/2020 HTN, HFrEF, DM, Obesity, and GERD who presented to the ED for complaint of SOB that has been going on for the last month or 2 however he reports that it has been significantly worse in the last 2 to 3 days. Acute on chronic HFrEF RICHIE NSTEMI suspect type II A. fib/atrial flutter Hypertension Diabetes Obesity Asthma Echo 12/30/2020-EF 35 to 40%, moderate left ventricular hypertrophy, right ventricular systolic function is mildly reduced, left atrium not well visualized, right atrium is mildly dilated, saline bubble study demonstrates no PFO. Lexiscan MPI stress 08/2018- demonstrates moderately to severe post stress left ventricular systolic dysfunction with no significant evidence for myocardial ischemia or necrosis Plan: EKG shows A. fib rate 125 with nonspecific T abnormalities and PVC no acute ischemic changes. Patient denies any complaints of chest pain Troponin is noted to be elevated however patient remains chest pain-free. Suspect troponin elevation related to RICHIE and acute on chronic HFrEF Anticoagulated on Eliquis Agree with aspirin, Lipitor, metoprolol Agree with losartan if okay with nephrology due to renal function Suspect elevated creatinine due to cardiorenal syndrome however primary team may wish to consider nephrology consult BNP noted to be elevated, patient reports orthopnea, dyspnea on exertion and patient has bilateral lower extremity edema Agree with diuresis with Lasix 40 mg IV twice daily. Strict I&O's close monitor of renal function and repeat BMP in the a.m. Echo pending Patient seen in conjunction with Dr. Mcgraw who agrees with this plan of care - Patient Problems (1) Atrial fibrillation Current Visit: Yes Status: Chronic Qualifiers: Atrial fibrillation type: paroxysmal Qualified Code(s): I48.0 - Paroxysmal atrial fibrillation (2) Hyperlipidemia Current Visit: Yes Status: Chronic Qualifiers: Hyperlipidemia type: mixed hyperlipidemia Qualified Code(s): E78.2 - Mixed hyperlipidemia (3) Hypertension Current Visit: Yes Status: Chronic Qualifiers: Hypertension type: primary hypertension Qualified Code(s): I10 - Essential (primary) hypertension (4) T2DM (type 2 diabetes mellitus) Current Visit: Yes Status: Chronic Qualifiers: Diabetes 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
[2021-10-11] MEDS: ASPIRIN EC 81 MG TAB PO SCH (13:09)
[2021-10-11] MEDS: METOPROLOL TARTRATE 100 MG TAB PO SCH ×2 (13:09→21:27)
[2021-10-11] MEDS: AMIODARONE 200 MG TAB PO SCH ×2 (13:09→21:27)
[2021-10-11] MEDS: LOSARTAN 50 MG TAB PO SCH (13:09)
[2021-10-11] MEDS: APIXABAN 5 MG TAB PO SCH ×2 (13:09→21:28)
[2021-10-11] MEDS: glipiZIDE XL 5 MG TAB PO SCH (13:10)
--- NOTE | 2021-10-11 16:13 | Progress Note ---
Assessment and Plan Assessment and plan: #Acute hypoxic respiratory failure - etiology: Likely secondary to presumed heart failure - baseline oxygen requirements: Room air - supplemental oxygen: 3 L nasal cannula - Continue protocol: continue pulse oximetry, wean oxygen as tolerated, ordered incentive spirometry and educated patient on how to use it and its importance. - continue to monitor #Acute on chronic diastolic heart failure - Continue CHF exacerbation protocol: Telemetry, Strict I/O, monitor urine output every shift, daily weights, afterload reduction, low-sodium diet, and fluid restriction of approximately 1.5 mL/day, IV Lasix 40 mg twice daily - Supplemental oxygen: 3 L nasal cannula - ProBNP on admission: 5565 - Cardiology consulted; appreciate recs -Pending TTE to evaluate cardiac function - Continue to monitor #Paroxysmal atrial fibrillation Continue Eliquis 5 mg every 12 hours. Starting amiodarone 200 mg twice daily, metoprolol tartrate 100 mg twice daily, and holding home diltiazem 240 mg daily. #Non-insulin dependent type II diabetes mellitus with hyperglycemia - hemoglobin A1c: Unknown - home regimen: Glipizide 10 mg twice daily, semaglutide 3 mg twice daily, metformin 1000 mg twice daily - current regimen: Glipizide 5 mg daily - blood glucose goal 140-180 while inpatient - continue to monitor #Hyperlipidemia #Hypertension - home medications: atorvastatin 20 mg daily, losartan 50 mg daily - current medications: Atorvastatin 40 mg daily, losartan 50 mg daily - SBP goal <160 and DBP goal <90 while inpatient - continue to monitor #Mild protein caloric malnutrition Albumin 3.8 Starting dietary supplementation #Morbid obesity #Weight loss counseling #Exercise counseling - BMI 44 - Counseled patient on the importance of weight loss, incorporating exercise, and dietary changes (lean meats, fresh fruits and vegetables, and water intake). Patient expresses understanding. - Time: +15 min #Advanced care planning -Disease education conducted, care plan discussed, diagnoses discussed, prognosis discussed, and patient acknowledges understanding with care plan -Time: +30 min Disposition Plan: Continue medical management Total Time Spent with Patient (Minutes): 45 minutes History Interval history: No acute events overnight. Hospitalist Physical - Constitutional Vitals: Temp Pulse Resp BP Pulse Ox 96.8 F L 130 H 14 123/81 98 10/11/21 13:00 10/11/21 14:32 10/11/21 13:00 10/11/21 13:09 10/11/21 13:00 General appearance: Present: no acute distress, well-nourished, obese - EENT Eyes: Present: PERRL, EOM intact ENT: hearing intact, clear oral mucosa, dentition normal - Neck Neck: Present: supple, normal ROM - Respiratory Respiratory effort: normal Respiratory: bilateral: diminished (3 L nasal cannula) - Cardiovascular Rhythm: regular Heart Sounds: Present: S1 & S2 - Extremities Extremities: no ischemia, pulses intact, pulses symmetrical, normal temperature, normal color Peripheral Pulses: within normal limits - Abdominal General gastrointestinal: soft, non-tender, non-distended, normal bowel sounds - Integumentary Integumentary: Present: clear, warm, dry - Psychiatric Psychiatric: appropriate mood/affect, intact judgment & insight, cooperative - Neurologic Neurologic: CNII-XII intact, moves all extremities - Allied Health Allied health notes reviewed: nursing HEART Score - HEART Score Age: 45-65 Risk factors: > 3 risk factors or hx of atherosclerotic disease Troponin: Troponin T 0.191 ng/mL (0.00-0.029) H* 10/10/21 18:51 Troponin: 1-3x normal limit - Critical Actions Critical Actions: >7 pts:50-65% risk of adverse cardiac event. Early invasive measures Results - Labs CBC & Chem 7: 10/11/21 05:03 10/11/21 05:03 Labs: Laboratory Last Values WBC 8.9 K/mm3 (4.5-11.0) 10/11/21 05:03 RBC 3.91 M/mm3 (3.65-5.03) 10/11/21 05:03 Hgb 12.0 gm/dl (11.8-15.2) 10/11/21 05:03 Hct 37.9 % (35.5-45.6) 10/11/21 05:03 MCV 97 fl (84-94) H 10/11/21 05:03 MCH 31 pg (28-32) 10/11/21 05:03 MCHC 32 % (32-34) 10/11/21 05:03 RDW 15.2 % (13.2-15.2) 10/11/21 05:03 Plt Count 287 K/mm3 (140-440) 10/11/21 05:03 Lymph % (Auto) 23.0 % (13.4-35.0) 10/10/21 17:04 [place] % (Auto) Nurse Specialist 10/11/21 05:03 Eos % (Auto) 2.2 % (0.0-4.3) 10/10/21 17:04 Baso % (Auto) 1.0 % (0.0-1.8) 10/10/21 17:04 Lymph # (Auto) 1.7 K/mm3 (1.2-5.4) 10/10/21 17:04 [place] # (Auto) 0.9 K/mm3 (0.0-0.8) H 10/10/21 17:04 Eos # (Auto) 0.2 K/mm3 (0.0-0.4) 10/10/21 17:04 Baso # (Auto) 0.1 K/mm3 (0.0-0.1) 10/10/21 17:04 Add Manual Diff Complete 10/11/21 05:03 Total Counted 100 10/11/21 05:03 Seg Neutrophils % 61.1 % (40.0-70.0) 10/10/21 17:04 Seg Neuts % (Manual) 48.0 % (40.0-70.0) 10/11/21 05:03 Band Neutrophils % 0 % 10/11/21 05:03 Lymphocytes % (Manual) 32.0 % (13.4-35.0) 10/11/21 05:03 Reactive Lymphs % (Man) 2.0 % 10/11/21 05:03 Monocytes % (Manual) 16.0 % (0.0-7.3) H 10/11/21 05:03 Eosinophils % (Manual) 1.0 % (0.0-4.3) 10/11/21 05:03 Basophils % (Manual) 0 % (0.0-1.8) 10/11/21 05:03 Metamyelocytes % 1.0 % 10/11/21 05:03 Myelocytes % 0 % 10/11/21 05:03 Promyelocytes % 0 % 10/11/21 05:03 Blast Cells % 0 % 10/11/21 05:03 Nucleated RBC % 2.0 % (0.0-0.9) H 10/11/21 05:03 Seg Neutrophils # 4.5 K/mm3 (1.8-7.7) 10/10/21 17:04 Seg Neutrophils # Man 4.3 K/mm3 (1.8-7.7) 10/11/21 05:03 Band Neutrophils # 0.0 K/mm3 10/11/21 05:03 Lymphocytes # (Manual) 2.8 K/mm3 (1.2-5.4) 10/11/21 05:03 Abs React Lymphs (Man) 0.2 K/mm3 10/11/21 05:03 Monocytes # (Manual) 1.4 K/mm3 (0.0-0.8) H 10/11/21 05:03 Eosinophils # (Manual) 0.1 K/mm3 (0.0-0.4) 10/11/21 05:03 Basophils # (Manual) 0.0 K/mm3 (0.0-0.1) 10/11/21 05:03 Metamyelocytes # 0.1 K/mm3 10/11/21 05:03 Myelocytes # 0.0 K/mm3 10/11/21 05:03 Promyelocytes # 0.0 K/mm3 10/11/21 05:03 Blast Cells # 0.0 K/mm3 10/11/21 05:03 WBC Morphology Not Reportable 10/11/21 05:03 Hypersegmented Neuts Not Reportable 10/11/21 05:03 Hyposegmented Neuts Not Reportable 10/11/21 05:03 Hypogranular Neuts Not Reportable 10/11/21 05:03 Smudge Cells Not Reportable 10/11/21 05:03 Toxic Granulation Not Reportable 10/11/21 05:03 Toxic Vacuolation Not Reportable 10/11/21 05:03 Dohle Bodies Not Reportable 10/11/21 05:03 Pelger-Huet Anomaly Not Reportable 10/11/21 05:03 Su Rods Not Reportable 10/11/21 05:03 Platelet Estimate Consistent w auto 10/11/21 05:03 Clumped Platelets Not Reportable 10/11/21 05:03 Plt Clumps, EDTA Not Reportable 10/11/21 05:03 Large Platelets Not Reportable 10/11/21 05:03 Giant Platelets Not Reportable 10/11/21 05:03 Platelet Satelliting Not Reportable 10/11/21 05:03 Plt Morphology Comment Not Reportable 10/11/21 05:03 RBC Morphology Not Reportable 10/11/21 05:03 Dimorphic RBCs Not Reportable 10/11/21 05:03 Polychromasia Not Reportable 10/11/21 05:03 Hypochromasia Not Reportable 10/11/21 05:03 Poikilocytosis Not Reportable 10/11/21 05:03 Anisocytosis Not Reportable 10/11/21 05:03 Microcytosis Not Reportable 10/11/21 05:03 Macrocytosis Not Reportable 10/11/21 05:03 Spherocytes Not Reportable 10/11/21 05:03 Pappenheimer Bodies Not Reportable 10/11/21 05:03 Sickle Cells Not Reportable 10/11/21 05:03 Target Cells 1+ 10/11/21 05:03 Tear Drop Cells Not Reportable 10/11/21 05:03 Ovalocytes Not Reportable 10/11/21 05:03 Helmet Cells Not Reportable 10/11/21 05:03 [place] Bodies Not Reportable 10/11/21 05:03 [place] Rings Not Reportable 10/11/21 05:03 [place] Cells Not Reportable 10/11/21 05:03 Bite Cells Not Reportable 10/11/21 05:03 Crenated Cell Not Reportable 10/11/21 05:03 Elliptocytes Not Reportable 10/11/21 05:03 Acanthocytes (Spur) Not Reportable 10/11/21 05:03 Rouleaux Not Reportable 10/11/21 05:03 Hemoglobin C Crystals Not Reportable 10/11/21 05:03 Schistocytes Not Reportable 10/11/21 05:03 Malaria parasites Not Reportable 10/11/21 05:03 Kartik Bodies Not Reportable 10/11/21 05:03 Hem Pathologist Commnt No 10/11/21 05:03 PT 16.9 Sec. (12.2-14.9) H 10/10/21 17:04 INR 1.23 (0.87-1.13) H 10/10/21 17:04 APTT 29.2 Sec. (24.2-36.6) 10/10/21 17:04 Sodium 140 mmol/L (137-145) 10/11/21 05:03 Potassium 4.2 mmol/L (3.6-5.0) 10/11/21 05:03 Chloride 103.1 mmol/L (98-107) 10/11/21 05:03 Carbon Dioxide 23 mmol/L (22-30) 10/11/21 05:03 Anion Gap 18 mmol/L 10/11/21 05:03 BUN 27 mg/dL (9-20) H 10/11/21 05:03 Creatinine 1.6 mg/dL (0.8-1.3) H 10/11/21 05:03 Estimated GFR 53 ml/min 10/11/21 05:03 BUN/Creatinine Ratio 17 % 10/11/21 05:03 Glucose 107 mg/dL (75-100) H 10/11/21 05:03 POC Glucose 186 mg/dL (70-105) H 10/11/21 12:21 Lactic Acid 1.50 mmol/L (0.7-2.0) 10/10/21 17:04 Calcium 9.4 mg/dL (8.4-10.2) 10/11/21 05:03 Magnesium 1.80 mg/dL (1.7-2.3) 10/10/21 17:04 Total Bilirubin 0.50 mg/dL (0.1-1.2) 10/11/21 05:03 AST 29 units/L (5-40) 10/11/21 05:03 ALT 29 units/L (7-56) 10/11/21 05:03 Alkaline Phosphatase 100 units/L (35-129) 10/11/21 05:03 Total Creatine Kinase 252 units/L (55-170) H 10/10/21 17:04 CK-MB (CK-2) 7.0 ng/mL (0.0-4.0) H 10/10/21 17:04 CK-MB (CK-2) Rel Index 2.7 (0-4) 10/10/21 17:04 Troponin T 0.191 ng/mL (0.00-0.029) H* 10/10/21 18:51 NT-Pro-B Natriuret Pep 5565 pg/mL (0-900) H 10/10/21 17:04 Total Protein 8.7 g/dL (6.3-8.2) H 10/11/21 05:03 Albumin 3.8 g/dL (3.9-5) L 10/11/21 05:03 Albumin/Globulin Ratio 0.8 % 10/11/21 05:03 Triglycerides 104 mg/dL (2-149) 10/10/21 17:04 Cholesterol 100 mg/dL (50-199) 10/10/21 17:04 LDL Cholesterol Direct 57 mg/dL (50-130) 10/10/21 17:04 HDL Cholesterol 28 mg/dL (40-59) L 10/10/21 17:04 Cholesterol/HDL Ratio 3.57 % 10/10/21 17:04 Lipase 18 units/L (13-60) 10/10/21 17:04 Urine Color Yellow (Yellow) 10/10/21 Unknown Urine Turbidity Clear (Clear) 10/10/21 Unknown Urine pH 5.0 (5.0-7.0) 10/10/21 Unknown Ur Specific [place] 1.011 (1.003-1.030) 10/10/21 Unknown Urine Protein 100 mg/dl mg/dL (Negative) 10/10/21 Unknown Urine Glucose (UA) Neg mg/dL (Negative) 10/10/21 Unknown Urine Ketones Neg mg/dL (Negative) 10/10/21 Unknown Urine Blood Sm (Negative) 10/10/21 Unknown Urine Nitrite Neg (Negative) 10/10/21 Unknown Urine Bilirubin Neg (Negative) 10/10/21 Unknown Urine Urobilinogen < 2.0 mg/dL (<2.0) 10/10/21 Unknown Ur Leukocyte Esterase Neg (Negative) 10/10/21 Unknown Urine WBC (Auto) < 1.0 /HPF (0.0-6.0) 10/10/21 Unknown Urine RBC (Auto) < 1.0 /HPF (0.0-6.0) 10/10/21 Unknown Urine Mucus Few /HPF 10/10/21 Unknown Urine Opiates Screen Negative 10/10/21 Unknown Urine Methadone Screen Negative 10/10/21 Unknown Ur Barbiturates Screen Negative 10/10/21 Unknown Ur Phencyclidine Scrn Negative 10/10/21 Unknown Ur Amphetamines Screen Negative 10/10/21 Unknown U Benzodiazepines Scrn Negative 10/10/21 Unknown Urine Cocaine Screen Negative 10/10/21 Unknown U Marijuana (THC) Screen Negative 10/10/21 Unknown Drugs of Abuse Note Disclamer 10/10/21 Unknown Microbiology: Microbiology 10/10/21 17:04 Peripheral/Venous Blood Culture - Preliminary Culture in Progress 10/10/21 17:04 Peripheral/Venous Blood Culture - Preliminary Culture in Progress Active Medications - Current Medications Current Medications: Generic Name Dose Route Start Last Admin Trade Name Freq PRN Reason Stop Dose Admin Acetaminophen 650 mg 10/10/21 23:42 Acetaminophen 325 Mg Tab PO Q4H PRN Pain MILD(1-3)/Fever >100.5/BERUMEN Amiodarone HCl 200 mg 10/11/21 11:00 10/11/21 13:09 Amiodarone 200 Mg Tab PO 200 mg BID IMANI Administration Apixaban 5 mg 10/11/21 10:00 10/11/21 13:09 Apixaban 5 Mg Tab PO 5 mg Q12HR MIANI Administration Protocol Aspirin 81 mg 10/11/21 10:00 10/11/21 13:09 Aspirin Ec 81 Mg Tab PO 81 mg QDAY IMANI Administration Atorvastatin Calcium 40 mg 10/11/21 22:00 Atorvastatin 40 Mg Tab PO QHS IMANI Bisacodyl 10 mg 10/11/21 10:00 Bisacodyl 10 Mg Rect Supp WI QDAY PRN Constipation Furosemide 40 mg 10/10/21 23:50 10/11/21 09:11 Furosemide 40 Mg/4 Ml Inj IV 40 mg 0600,1800 IMANI Administration Glipizide 5 mg 10/11/21 10:00 10/11/21 13:10 Glipizide Xl 5 Mg Tab PO 5 mg QAM IMANI Administration Insulin Human Lispro 0 unit 10/11/21 07:30 10/11/21 13:10 Insulin Lispro 100 Unit/Ml SUB-Q 3 unit ACHS IMANI Administration Protocol Losartan Potassium 50 mg 10/11/21 10:00 10/11/21 13:09 Losartan 50 Mg Tab PO 50 mg QDAY IMANI Administration Metoclopramide HCl 10 mg 10/10/21 23:42 Metoclopramide 10 Mg/2 Ml Inj IV Q6H PRN Nausea And Vomiting Metoprolol Tartrate 100 mg 10/11/21 10:00 10/11/21 13:09 Metoprolol Tartrate 100 Mg Tab PO 100 mg BID IMANI Administration Morphine Sulfate 2 mg 10/10/21 23:42 Morphine 2 Mg/1 Ml Inj IV Q4H PRN Pain, Moderate (4-6) Ondansetron HCl 4 mg 10/10/21 23:42 Ondansetron 4 Mg/2 Ml Inj IV Q8H PRN Nausea And Vomiting Oxycodone/Acetaminophen 1 tab 10/10/21 23:42 Oxycodone /Acetaminophen 5-325mg Tab PO Q6H PRN Pain, Moderate (4-6) Sodium Chloride 10 ml 10/11/21 10:00 10/11/21 13:10 Sodium Chloride 0.9% 10 Ml Flush Syringe IV 10 ml BID IMANI Administration Sodium Chloride 10 ml 10/10/21 23:42 Sodium Chloride 0.9% 10 Ml Flush Syringe IV PRN PRN LINE FLUSH
[2021-10-11] MEDS: oxyCODONE /ACETAMINOPHEN 5-325MG TAB PO PRN (17:56)
[2021-10-11] MEDS: MORPHINE 2 MG/1 ML INJ IV PRN (23:24)
[2021-10-12 04:48] LABS: Calcium 9.1 mg/dL (8.4-10.2)
[2021-10-12] MEDS: FUROSEMIDE 40 MG/4 ML INJ IV SCH ×2 (05:36→17:22)
[2021-10-12] MEDS: AMIODARONE 200 MG TAB PO SCH ×2 (09:15→22:09)
[2021-10-12] MEDS: ASPIRIN EC 81 MG TAB PO SCH (09:16)
[2021-10-12] MEDS: glipiZIDE XL 5 MG TAB PO SCH (09:16)
[2021-10-12] MEDS: APIXABAN 5 MG TAB PO SCH ×2 (09:16→22:09)
[2021-10-12] MEDS: LOSARTAN 50 MG TAB PO SCH (09:16)
[2021-10-12] MEDS: METOPROLOL TARTRATE 100 MG TAB PO SCH ×2 (09:16→22:00)
[2021-10-12] MEDS: INSULIN LISPRO 100 UNIT/ML SUB-Q SCH ×4 (09:17→22:10)
--- NOTE | 2021-10-12 10:33 | Progress Note ---
Assessment and Plan Patient is 61 y/o male, who previously follows with Dr. Moreau of our group, with a pmhx of Afib/flutter s/p cardioversion 06/17/2020 HTN, HFrEF, DM, Obesity, and GERD who presented to the ED for complaint of SOB that has been going on for the last month or 2 however he reports that it has been significantly worse in the last 2 to 3 days. Acute on chronic HFrEF RICHIE NSTEMI suspect type II A. fib/atrial flutter Hypertension Diabetes Obesity Asthma Echo 10/10/2021-EF 20 to 25%. Mild concentric LVH. Right ventricle is dilated. Right ventricular systolic function is normal. Mild mitral regurgitation. No pericardial effusion Echo 12/30/2020-EF 35 to 40%, moderate left ventricular hypertrophy, right ventricular systolic function is mildly reduced, left atrium not well visualized, right atrium is mildly dilated, saline bubble study demonstrates no PFO. Lexiscan MPI stress 08/2018- demonstrates moderately to severe post stress left ventricular systolic dysfunction with no significant evidence for myocardial ischemia or necrosis Plan: Patient remains chest pain-free Troponin is noted to be elevated however downtrending. Patient continues to remain chest pain-free. Suspect troponin elevation related to RICHIE and acute on chronic HFrEF Anticoagulated on Eliquis Agree with aspirin, Lipitor, metoprolol Agree with losartan if okay with nephrology due to renal function Suspect elevated creatinine due to cardiorenal syndrome however primary team may wish to consider nephrology consult BNP noted to be elevated, patient reports orthopnea, dyspnea on exertion and patient has bilateral lower extremity edema Patient reports good urine output. Continue diuresis with Lasix 40 mg IV twice daily. Strict I&O's close monitor of renal function and repeat BMP in the a.m. Echo results noted above. Due to decrease in EF patient will eventually need ischemic eval however will hold ischemic eval until patient is euvolemic. Patient seen in conjunction with Dr. Mcgrwa who agrees with this plan of care - Patient Problems (1) Atrial fibrillation Current Visit: Yes Status: Chronic Qualifiers: Atrial fibrillation type: paroxysmal Qualified Code(s): I48.0 - Paroxysmal atrial fibrillation (2) Hyperlipidemia Current Visit: Yes Status: Chronic Qualifiers: Hyperlipidemia type: mixed hyperlipidemia Qualified Code(s): E78.2 - Mixed hyperlipidemia (3) Hypertension Current Visit: Yes Status: Chronic Qualifiers: Hypertension type: primary hypertension Qualified Code(s): I10 - Essential (primary) hypertension (4) T2DM (type 2 diabetes mellitus) Current Visit: Yes Status: Chronic Qualifiers: Diabetes mellitus senior care insulin use: unspecified senior care insulin use status (5) Hypertension Current Visit: No Status: Acute (6) Non-STEMI (non-ST elevated myocardial infarction) Current Visit: No Status: Acute (7) Cardiomyopathy Current Visit: No Status: Chronic Subjective Date of service: 10/12/21 Principal diagnosis: Acute on chronic HFrEF Interval history: Patient sitting on side of the bed. Patient reports some improvement in respiratory status A. fib 90- low 100s on monitor with episode of 4 beat NSVT overnight Objective Vital Signs Temp Pulse Pulse Resp BP BP Pulse Ox 10/12/21 09:16 117 H 10/12/21 06:00 115 H 18 98 10/12/21 04:00 97.2 F L 98 H 18 126/95 97 10/11/21 22:00 130 H 10/11/21 21:27 130 H 123/81 10/11/21 14:32 130 H 10/11/21 13:09 120 H 123/81 10/11/21 13:00 96.8 F L 120 H 14 123/81 98 10/11/21 10:38 133 H 20 99 - Physical Examination HEENT: Positive: PERRL, Normocephaly Neck: Positive: trachea midline Cardiac: Positive: irregularly irregular Lungs: Positive: Decreased Breath Sounds Neuro: Positive: Grossly Intact Abdomen: Positive: Active Bowel Sounds Skin: Negative: Rash, Suspicious Lesions, Ulceration Extremities: Present: upper extr. pulses, edema - Labs and Meds Comprehensive Metabolic Panel 10/12/21 Range/Units 03:58 Sodium 140 (137-145) mmol/L Potassium 4.8 (3.6-5.0) mmol/L Chloride 104.5 (98-107) mmol/L Carbon Dioxide 25 (22-30) mmol/L BUN 28 H (9-20) mg/dL Creatinine 1.7 H (0.8-1.3) mg/dL Glucose 123 H (75-100) mg/dL Calcium 9.1 (8.4-10.2) mg/dL - Imaging and Cardiology EKG: report reviewed (Sinus tachycardia) Echo: report reviewed - Telemetry EKG Rhythm: Atrial Fibrillation - EKG Supraventricular dysrhythmia: atrial fibrillation Ventricular dysrhythmias: ventricular premature com Repolarization changes or abnormalities: nonspecific abnormality, ST segment, and/or T wave
[2021-10-12] MEDS: oxyCODONE /ACETAMINOPHEN 5-325MG TAB PO PRN ×2 (12:00→20:40)
--- NOTE | 2021-10-12 18:34 | Progress Note ---
Assessment and Plan Assessment and plan: #Acute hypoxic respiratory failure - etiology: Likely secondary to presumed heart failure - baseline oxygen requirements: Room air - supplemental oxygen: 2 L nasal cannula - Continue protocol: continue pulse oximetry, wean oxygen as tolerated, ordered incentive spirometry and educated patient on how to use it and its importance. - continue to monitor #Acute on chronic systolic heart failureimproving - Continue CHF exacerbation protocol: Telemetry, Strict I/O, monitor urine output every shift, daily weights, afterload reduction, low-sodium diet, and fluid restriction of approximately 1.5 mL/day, IV Lasix 40 mg twice daily - Supplemental oxygen: 2 L nasal cannula - ProBNP on admission: 5565 - Cardiology consulted; appreciate recs -TTE (10/12/2021) revealing EF 20 to 25% with normal-sized LV, severely decreased LV systolic function, mild concentric LVH, severe global hypokinesis of LV, dilated RV, mildly dilated RA, and RVSP is 40 mmHg. - Continue to monitor #RICHIE Creatinine 1.2--> 1.6 Likely secondary to cardiorenal syndrome in the setting of presumed heart failure exacerbation. Should improve as volume status improves. Renally dose meds and avoid nephrotoxic drugs. Continue to monitor. #Paroxysmal atrial fibrillation Continue Eliquis 5 mg every 12 hours. Starting amiodarone 200 mg twice daily, metoprolol tartrate 100 mg twice daily, and holding home diltiazem 240 mg daily. #Non-insulin dependent type II diabetes mellitus with hyperglycemia - hemoglobin A1c: Unknown - home regimen: Glipizide 10 mg twice daily, semaglutide 3 mg twice daily, metformin 1000 mg twice daily - current regimen: Glipizide 5 mg daily - blood glucose goal 140-180 while inpatient - continue to monitor #Hyperlipidemia #Hypertension - home medications: atorvastatin 20 mg daily, losartan 50 mg daily - current medications: Atorvastatin 40 mg daily, losartan 50 mg daily - SBP goal <160 and DBP goal <90 while inpatient - continue to monitor #Mild protein caloric malnutrition Albumin 3.8 Continue dietary supplementation #Morbid obesity #Weight loss counseling #Exercise counseling - BMI 44 - Counseled patient on the importance of weight loss, incorporating exercise, and dietary changes (lean meats, fresh fruits and vegetables, and water intake). Patient expresses understanding. - Time: +15 min #Advanced care planning -Disease education conducted, care plan discussed, diagnoses discussed, prognosis discussed, and patient acknowledges understanding with care plan -Time: +30 min Disposition Plan: Continue medical management Total Time Spent with Patient (Minutes): 45 minutes History Interval history: No acute events overnight. Hospitalist Physical - Constitutional Vitals: Temp Pulse Resp BP Pulse Ox 97.4 F L 79 18 133/78 99 10/12/21 16:09 10/12/21 16:09 10/12/21 06:00 10/12/21 16:09 10/12/21 16:09 General appearance: Present: no acute distress, well-nourished, obese - EENT Eyes: Present: PERRL, EOM intact ENT: hearing intact, clear oral mucosa, dentition normal - Neck Neck: Present: supple, normal ROM - Respiratory Respiratory effort: normal Respiratory: bilateral: diminished (On 2 L nasal cannula) - Cardiovascular Rhythm: regular Heart Sounds: Present: S1 & S2 - Extremities Extremities: no ischemia, pulses intact, pulses symmetrical, normal temperature, normal color Extremity abnormal: edema (1+ edema bilateral lower extremities; edematous and swollen scrotum secondary to volume overload) Peripheral Pulses: within normal limits - Abdominal General gastrointestinal: soft, non-tender, non-distended, normal bowel sounds - Integumentary Integumentary: Present: clear, warm, dry - Psychiatric Psychiatric: appropriate mood/affect, intact judgment & insight, memory intact, cooperative - Neurologic Neurologic: CNII-XII intact, moves all extremities - Allied Health Allied health notes reviewed: nursing HEART Score - HEART Score Age: 45-65 Risk factors: > 3 risk factors or hx of atherosclerotic disease Troponin: Troponin T 0.144 ng/mL (0.00-0.029) H* D 10/12/21 09:00 Troponin: 1-3x normal limit - Critical Actions Critical Actions: >7 pts:50-65% risk of adverse cardiac event. Early invasive measures Results - Labs CBC & Chem 7: 10/11/21 05:03 10/12/21 03:58 Labs: Laboratory Last Values WBC 8.9 K/mm3 (4.5-11.0) 10/11/21 05:03 RBC 3.91 M/mm3 (3.65-5.03) 10/11/21 05:03 Hgb 12.0 gm/dl (11.8-15.2) 10/11/21 05:03 Hct 37.9 % (35.5-45.6) 10/11/21 05:03 MCV 97 fl (84-94) H 10/11/21 05:03 MCH 31 pg (28-32) 10/11/21 05:03 MCHC 32 % (32-34) 10/11/21 05:03 RDW 15.2 % (13.2-15.2) 10/11/21 05:03 Plt Count 287 K/mm3 (140-440) 10/11/21 05:03 Lymph % (Auto) 23.0 % (13.4-35.0) 10/10/21 17:04 [place] % (Auto) Optics Test Technician 10/11/21 05:03 Eos % (Auto) 2.2 % (0.0-4.3) 10/10/21 17:04 Baso % (Auto) 1.0 % (0.0-1.8) 10/10/21 17:04 Lymph # (Auto) 1.7 K/mm3 (1.2-5.4) 10/10/21 17:04 [place] # (Auto) 0.9 K/mm3 (0.0-0.8) H 10/10/21 17:04 Eos # (Auto) 0.2 K/mm3 (0.0-0.4) 10/10/21 17:04 Baso # (Auto) 0.1 K/mm3 (0.0-0.1) 10/10/21 17:04 Add Manual Diff Complete 10/11/21 05:03 Total Counted 100 10/11/21 05:03 Seg Neutrophils % 61.1 % (40.0-70.0) 10/10/21 17:04 Seg Neuts % (Manual) 48.0 % (40.0-70.0) 10/11/21 05:03 Band Neutrophils % 0 % 10/11/21 05:03 Lymphocytes % (Manual) 32.0 % (13.4-35.0) 10/11/21 05:03 Reactive Lymphs % (Man) 2.0 % 10/11/21 05:03 Monocytes % (Manual) 16.0 % (0.0-7.3) H 10/11/21 05:03 Eosinophils % (Manual) 1.0 % (0.0-4.3) 10/11/21 05:03 Basophils % (Manual) 0 % (0.0-1.8) 10/11/21 05:03 Metamyelocytes % 1.0 % 10/11/21 05:03 Myelocytes % 0 % 10/11/21 05:03 Promyelocytes % 0 % 10/11/21 05:03 Blast Cells % 0 % 10/11/21 05:03 Nucleated RBC % 2.0 % (0.0-0.9) H 10/11/21 05:03 Seg Neutrophils # 4.5 K/mm3 (1.8-7.7) 10/10/21 17:04 Seg Neutrophils # Man 4.3 K/mm3 (1.8-7.7) 10/11/21 05:03 Band Neutrophils # 0.0 K/mm3 10/11/21 05:03 Lymphocytes # (Manual) 2.8 K/mm3 (1.2-5.4) 10/11/21 05:03 Abs React Lymphs (Man) 0.2 K/mm3 10/11/21 05:03 Monocytes # (Manual) 1.4 K/mm3 (0.0-0.8) H 10/11/21 05:03 Eosinophils # (Manual) 0.1 K/mm3 (0.0-0.4) 10/11/21 05:03 Basophils # (Manual) 0.0 K/mm3 (0.0-0.1) 10/11/21 05:03 Metamyelocytes # 0.1 K/mm3 10/11/21 05:03 Myelocytes # 0.0 K/mm3 10/11/21 05:03 Promyelocytes # 0.0 K/mm3 10/11/21 05:03 Blast Cells # 0.0 K/mm3 10/11/21 05:03 WBC Morphology Not Reportable 10/11/21 05:03 Hypersegmented Neuts Not Reportable 10/11/21 05:03 Hyposegmented Neuts Not Reportable 10/11/21 05:03 Hypogranular Neuts Not Reportable 10/11/21 05:03 Smudge Cells Not Reportable 10/11/21 05:03 Toxic Granulation Not Reportable 10/11/21 05:03 Toxic Vacuolation Not Reportable 10/11/21 05:03 Dohle Bodies Not Reportable 10/11/21 05:03 Pelger-Huet Anomaly Not Reportable 10/11/21 05:03 Su Rods Not Reportable 10/11/21 05:03 Platelet Estimate Consistent w auto 10/11/21 05:03 Clumped Platelets Not Reportable 10/11/21 05:03 Plt Clumps, EDTA Not Reportable 10/11/21 05:03 Large Platelets Not Reportable 10/11/21 05:03 Giant Platelets Not Reportable 10/11/21 05:03 Platelet Satelliting Not Reportable 10/11/21 05:03 Plt Morphology Comment Not Reportable 10/11/21 05:03 RBC Morphology Not Reportable 10/11/21 05:03 Dimorphic RBCs Not Reportable 10/11/21 05:03 Polychromasia Not Reportable 10/11/21 05:03 Hypochromasia Not Reportable 10/11/21 05:03 Poikilocytosis Not Reportable 10/11/21 05:03 Anisocytosis Not Reportable 10/11/21 05:03 Microcytosis Not Reportable 10/11/21 05:03 Macrocytosis Not Reportable 10/11/21 05:03 Spherocytes Not Reportable 10/11/21 05:03 Pappenheimer Bodies Not Reportable 10/11/21 05:03 Sickle Cells Not Reportable 10/11/21 05:03 Target Cells 1+ 10/11/21 05:03 Tear Drop Cells Not Reportable 10/11/21 05:03 Ovalocytes Not Reportable 10/11/21 05:03 Helmet Cells Not Reportable 10/11/21 05:03 Polanco-Novinger Bodies Not Reportable 10/11/21 05:03 [place] Rings Not Reportable 10/11/21 05:03 [place]on Cells Not Reportable 10/11/21 05:03 Bite Cells Not Reportable 10/11/21 05:03 Crenated Cell Not Reportable 10/11/21 05:03 Elliptocytes Not Reportable 10/11/21 05:03 Acanthocytes (Spur) Not Reportable 10/11/21 05:03 Rouleaux Not Reportable 10/11/21 05:03 Hemoglobin C Crystals Not Reportable 10/11/21 05:03 Schistocytes Not Reportable 10/11/21 05:03 Malaria parasites Not Reportable 10/11/21 05:03 Kartik Bodies Not Reportable 10/11/21 05:03 Hem Pathologist Commnt No 10/11/21 05:03 PT 16.9 Sec. (12.2-14.9) H 10/10/21 17:04 INR 1.23 (0.87-1.13) H 10/10/21 17:04 APTT 29.2 Sec. (24.2-36.6) 10/10/21 17:04 Sodium 140 mmol/L (137-145) 10/12/21 03:58 Potassium 4.8 mmol/L (3.6-5.0) 10/12/21 03:58 Chloride 104.5 mmol/L (98-107) 10/12/21 03:58 Carbon Dioxide 25 mmol/L (22-30) 10/12/21 03:58 Anion Gap 15 mmol/L 10/12/21 03:58 BUN 28 mg/dL (9-20) H 10/12/21 03:58 Creatinine 1.7 mg/dL (0.8-1.3) H 10/12/21 03:58 Estimated GFR 50 ml/min 10/12/21 03:58 BUN/Creatinine Ratio 16 % 10/12/21 03:58 Glucose 123 mg/dL (75-100) H 10/12/21 03:58 POC Glucose 159 mg/dL (70-105) H 10/12/21 15:54 Lactic Acid 1.50 mmol/L (0.7-2.0) 10/10/21 17:04 Calcium 9.1 mg/dL (8.4-10.2) 10/12/21 03:58 Magnesium 1.80 mg/dL (1.7-2.3) 10/10/21 17:04 Total Bilirubin 0.50 mg/dL (0.1-1.2) 10/11/21 05:03 AST 29 units/L (5-40) 10/11/21 05:03 ALT 29 units/L (7-56) 10/11/21 05:03 Alkaline Phosphatase 100 units/L (35-129) 10/11/21 05:03 Total Creatine Kinase 252 units/L (55-170) H 10/10/21 17:04 CK-MB (CK-2) 7.0 ng/mL (0.0-4.0) H 10/10/21 17:04 CK-MB (CK-2) Rel Index 2.7 (0-4) 10/10/21 17:04 Troponin T 0.144 ng/mL (0.00-0.029) H* D 10/12/21 09:00 NT-Pro-B Natriuret Pep 5565 pg/mL (0-900) H 10/10/21 17:04 Total Protein 8.7 g/dL (6.3-8.2) H 10/11/21 05:03 Albumin 3.8 g/dL (3.9-5) L 10/11/21 05:03 Albumin/Globulin Ratio 0.8 % 10/11/21 05:03 Triglycerides 104 mg/dL (2-149) 10/10/21 17:04 Cholesterol 100 mg/dL (50-199) 10/10/21 17:04 LDL Cholesterol Direct 57 mg/dL (50-130) 10/10/21 17:04 HDL Cholesterol 28 mg/dL (40-59) L 10/10/21 17:04 Cholesterol/HDL Ratio 3.57 % 10/10/21 17:04 Lipase 18 units/L (13-60) 10/10/21 17:04 Urine Color Yellow (Yellow) 10/10/21 Unknown Urine Turbidity Clear (Clear) 10/10/21 Unknown Urine pH 5.0 (5.0-7.0) 10/10/21 Unknown Ur Specific [place] 1.011 (1.003-1.030) 10/10/21 Unknown Urine Protein 100 mg/dl mg/dL (Negative) 10/10/21 Unknown Urine Glucose (UA) Neg mg/dL (Negative) 10/10/21 Unknown Urine Ketones Neg mg/dL (Negative) 10/10/21 Unknown Urine Blood Sm (Negative) 10/10/21 Unknown Urine Nitrite Neg (Negative) 10/10/21 Unknown Urine Bilirubin Neg (Negative) 10/10/21 Unknown Urine Urobilinogen < 2.0 mg/dL (<2.0) 10/10/21 Unknown Ur Leukocyte Esterase Neg (Negative) 10/10/21 Unknown Urine WBC (Auto) < 1.0 /HPF (0.0-6.0) 10/10/21 Unknown Urine RBC (Auto) < 1.0 /HPF (0.0-6.0) 10/10/21 Unknown Urine Mucus Few /HPF 10/10/21 Unknown Urine Opiates Screen Negative 10/10/21 Unknown Urine Methadone Screen Negative 10/10/21 Unknown Ur Barbiturates Screen Negative 10/10/21 Unknown Ur Phencyclidine Scrn Negative 10/10/21 Unknown Ur Amphetamines Screen Negative 10/10/21 Unknown U Benzodiazepines Scrn Negative 10/10/21 Unknown Urine Cocaine Screen Negative 10/10/21 Unknown U Marijuana (THC) Screen Negative 10/10/21 Unknown Drugs of Abuse Note Disclamer 10/10/21 Unknown Microbiology: Microbiology 10/10/21 Unknown Urine,Clean Catch Urine Culture - Preliminary NO GROWTH AFTER 24 HOURS 10/10/21 17:04 Peripheral/Venous Blood Culture - Preliminary NO GROWTH AFTER 24 HOURS 10/10/21 17:04 Peripheral/Venous Blood Culture - Preliminary NO GROWTH AFTER 24 HOURS Active Medications - Current Medications Current Medications: Generic Name Dose Route Start Last Admin Trade Name Freq PRN Reason Stop Dose Admin Acetaminophen 650 mg 10/10/21 23:42 Acetaminophen 325 Mg Tab PO Q4H PRN Pain MILD(1-3)/Fever >100.5/BERUMEN Amiodarone HCl 200 mg 10/11/21 11:00 10/12/21 09:15 Amiodarone 200 Mg Tab PO 200 mg BID IMANI Administration Apixaban 5 mg 10/11/21 10:00 10/12/21 09:16 Apixaban 5 Mg Tab PO 5 mg Q12HR IMANI Administration Protocol Aspirin 81 mg 10/11/21 10:00 10/12/21 09:16 Aspirin Ec 81 Mg Tab PO 81 mg QDAY IMANI Administration Atorvastatin Calcium 40 mg 10/11/21 22:00 10/11/21 21:27 Atorvastatin 40 Mg Tab PO 40 mg QHS IMANI Administration Bisacodyl 10 mg 10/11/21 10:00 Bisacodyl 10 Mg Rect Supp AL QDAY PRN Constipation Furosemide 40 mg 10/10/21 23:50 10/12/21 17:22 Furosemide 40 Mg/4 Ml Inj IV 40 mg 0600,1800 IMANI Administration Glipizide 5 mg 10/13/21 08:00 Glipizide Xl 5 Mg Tab PO QDDIAB IMANI Insulin Human Lispro 0 unit 10/11/21 07:30 10/12/21 17:22 Insulin Lispro 100 Unit/Ml SUB-Q 3 unit ACHS IMANI Administration Protocol Losartan Potassium 50 mg 10/11/21 10:00 10/12/21 09:16 Losartan 50 Mg Tab PO 50 mg QDAY IMANI Administration Metoclopramide HCl 10 mg 10/10/21 23:42 Metoclopramide 10 Mg/2 Ml Inj IV Q6H PRN Nausea And Vomiting Metoprolol Tartrate 100 mg 10/11/21 10:00 10/12/21 09:16 Metoprolol Tartrate 100 Mg Tab PO 100 mg BID IMANI Administration Morphine Sulfate 2 mg 10/10/21 23:42 10/11/21 23:24 Morphine 2 Mg/1 Ml Inj IV 2 mg Q4H PRN Administration Pain, Moderate (4-6) Ondansetron HCl 4 mg 10/10/21 23:42 Ondansetron 4 Mg/2 Ml Inj IV Q8H PRN Nausea And Vomiting Oxycodone/Acetaminophen 1 tab 10/10/21 23:42 10/12/21 12:00 Oxycodone /Acetaminophen 5-325mg Tab PO 1 tab Q6H PRN Administration Pain, Moderate (4-6) Sodium Chloride 10 ml 10/11/21 10:00 10/12/21 09:17 Sodium Chloride 0.9% 10 Ml Flush Syringe IV 10 ml BID IMANI Administration Sodium Chloride 10 ml 10/10/21 23:42 Sodium Chloride 0.9% 10 Ml Flush Syringe IV PRN PRN LINE FLUSH
[2021-10-13 05:40] LABS: Calcium 9.2 mg/dL (8.4-10.2)
[2021-10-13] MEDS: FUROSEMIDE 40 MG/4 ML INJ IV SCH ×2 (06:56→17:31)
[2021-10-13] MEDS: oxyCODONE /ACETAMINOPHEN 5-325MG TAB PO PRN ×3 (06:56→23:32)
[2021-10-13] MEDS: INSULIN LISPRO 100 UNIT/ML SUB-Q SCH ×4 (08:46→22:49)
--- NOTE | 2021-10-13 09:54 | Progress Note ---
Assessment and Plan Patient is 61 y/o male, who previously follows with Dr. Moreau of our group, with a pmhx of Afib/flutter s/p cardioversion 06/17/2020 HTN, HFrEF, DM, Obesity, and GERD who presented to the ED for complaint of SOB that has been going on for the last month or 2 however he reports that it has been significantly worse in the last 2 to 3 days. Acute on chronic HFrEF RICHIE NSTEMI suspect type II A. fib/atrial flutter Hypertension Diabetes Obesity Asthma Echo 10/10/2021-EF 20 to 25%. Mild concentric LVH. Right ventricle is dilated. Right ventricular systolic function is normal. Mild mitral regurgitation. No pericardial effusion Echo 12/30/2020-EF 35 to 40%, moderate left ventricular hypertrophy, right ventricular systolic function is mildly reduced, left atrium not well visualized, right atrium is mildly dilated, saline bubble study demonstrates no PFO. Lexiscan MPI stress 08/2018- demonstrates moderately to severe post stress left ventricular systolic dysfunction with no significant evidence for myocardial ischemia or necrosis Plan: Anticoagulated on Eliquis Agree with aspirin, Lipitor, metoprolol Suspect elevated creatinine due to cardiorenal syndrome however primary team may wish to consider nephrology consult Patient contines to report good urine output. Continue diuresis with Lasix 40 mg IV twice daily. Strict I&O's close monitor of renal function and repeat BMP in the a.m. Echo results noted above. Due to decrease in EF patient will eventually need ischemic eval however will hold ischemic eval until patient is euvolemic. Plan of care discussed with patient's who verbalized understanding and agreement Patient seen in conjunction with Dr. Mcgraw who agrees with this plan of care - Patient Problems (1) Atrial fibrillation Current Visit: Yes Status: Chronic Qualifiers: Atrial fibrillation type: paroxysmal Qualified Code(s): I48.0 - Paroxysmal atrial fibrillation (2) Hyperlipidemia Current Visit: Yes Status: Chronic Qualifiers: Hyperlipidemia type: mixed hyperlipidemia Qualified Code(s): E78.2 - Mixed hyperlipidemia (3) Hypertension Current Visit: Yes Status: Chronic Qualifiers: Hypertension type: primary hypertension Qualified Code(s): I10 - Essential (primary) hypertension (4) T2DM (type 2 diabetes mellitus) Current Visit: Yes Status: Chronic Qualifiers: Diabetes mellitus exterminator termite insulin use: unspecified exterminator termite insulin use status (5) Hypertension Current Visit: No Status: Acute (6) Non-STEMI (non-ST elevated myocardial infarction) Current Visit: No Status: Acute (7) Cardiomyopathy Current Visit: No Status: Chronic Subjective Date of service: 10/13/21 Principal diagnosis: Acute on chronic HFrEF Interval history: Patient resting in bed in no acute distress. Patient reports continued improvement in respiratory status and good urine output A. fib 90- low 100s on monitor with episode into 130s with activity Objective Vital Signs Temp Pulse Pulse Resp BP Pulse Ox 10/13/21 06:56 18 10/13/21 03:52 98.2 F 65 20 128/88 98 10/12/21 22:40 98.4 F 91 H 19 118/99 95 10/12/21 22:00 115 H 130/83 10/12/21 20:40 20 10/12/21 20:00 97.6 F 45 L 19 130/83 100 10/12/21 18:00 115 H 18 98 10/12/21 16:09 97.4 F L 79 133/78 99 10/12/21 14:00 107 H - Physical Examination General: No Apparent Distress HEENT: Positive: PERRL, Normocephaly Neck: Positive: trachea midline Cardiac: Positive: irregularly irregular Lungs: Positive: Decreased Breath Sounds Neuro: Positive: Grossly Intact Abdomen: Positive: Active Bowel Sounds Skin: Negative: Rash, Suspicious Lesions, Ulceration Extremities: Present: upper extr. pulses, edema - Labs and Meds Comprehensive Metabolic Panel 10/13/21 Range/Units 04:50 Sodium 138 (137-145) mmol/L Potassium 4.6 (3.6-5.0) mmol/L Chloride 101.6 (98-107) mmol/L Carbon Dioxide 24 (22-30) mmol/L BUN 34 H (9-20) mg/dL Creatinine 1.7 H (0.8-1.3) mg/dL Glucose 155 H (75-100) mg/dL Calcium 9.2 (8.4-10.2) mg/dL - Imaging and Cardiology EKG: report reviewed (Sinus tachycardia) Echo: report reviewed - Telemetry EKG Rhythm: Atrial Fibrillation - EKG Supraventricular dysrhythmia: atrial fibrillation Ventricular dysrhythmias: ventricular premature com Repolarization changes or abnormalities: nonspecific abnormality, ST segment, and/or T wave
[2021-10-13] MEDS: glipiZIDE XL 5 MG TAB PO SCH (11:00)
[2021-10-13] MEDS: LOSARTAN 50 MG TAB PO SCH (11:00)
[2021-10-13] MEDS: METOPROLOL TARTRATE 100 MG TAB PO SCH ×2 (11:01→22:46)
[2021-10-13] MEDS: AMIODARONE 200 MG TAB PO SCH ×2 (11:01→22:47)
[2021-10-13] MEDS: ASPIRIN EC 81 MG TAB PO SCH (11:01)
[2021-10-13] MEDS: APIXABAN 5 MG TAB PO SCH ×2 (11:01→22:47)
--- NOTE | 2021-10-13 13:54 | Progress Note ---
Assessment and Plan Assessment and plan: #Acute hypoxic respiratory failureimproving - etiology: Likely secondary to presumed heart failure - baseline oxygen requirements: Room air - supplemental oxygen: 2 L nasal cannula - Continue protocol: continue pulse oximetry, wean oxygen as tolerated, ordered incentive spirometry and educated patient on how to use it and its importance. - continue to monitor #Acute on chronic systolic heart failureimproving - Continue CHF exacerbation protocol: Telemetry, Strict I/O, monitor urine output every shift, daily weights, afterload reduction, low-sodium diet, and fluid restriction of approximately 1.5 mL/day, IV Lasix 40 mg twice daily - Supplemental oxygen: 2 L nasal cannula - ProBNP on admission: 5565 - Cardiology consulted; appreciate recs -TTE (10/12/2021) revealing EF 20 to 25% with normal-sized LV, severely decreased LV systolic function, mild concentric LVH, severe global hypokinesis of LV, dilated RV, mildly dilated RA, and RVSP is 40 mmHg. - Continue to monitor #RICHIE Creatinine 1.2--> 1.6 Likely secondary to cardiorenal syndrome in the setting of presumed heart failure exacerbation. Should improve as volume status improves. Renally dose meds and avoid nephrotoxic drugs. Continue to monitor. #Paroxysmal atrial fibrillation Continue Eliquis 5 mg every 12 hours. Continue amiodarone 200 mg twice daily, metoprolol tartrate 100 mg twice daily, and holding home diltiazem 240 mg daily. #Non-insulin dependent type II diabetes mellitus with hyperglycemia - hemoglobin A1c: Unknown - home regimen: Glipizide 10 mg twice daily, semaglutide 3 mg twice daily, metformin 1000 mg twice daily - current regimen: Glipizide 5 mg daily - blood glucose goal 140-180 while inpatient - continue to monitor #Hyperlipidemia #Hypertension - home medications: atorvastatin 20 mg daily, losartan 50 mg daily - current medications: Atorvastatin 40 mg daily, losartan 50 mg daily - SBP goal <160 and DBP goal <90 while inpatient - continue to monitor #Mild protein caloric malnutrition Albumin 3.8 Continue dietary supplementation #Morbid obesity #Weight loss counseling #Exercise counseling - BMI 44 - Counseled patient on the importance of weight loss, incorporating exercise, and dietary changes (lean meats, fresh fruits and vegetables, and water intake). Patient expresses understanding. - Time: +15 min #Advanced care planning -Disease education conducted, care plan discussed, diagnoses discussed, prognosis discussed, and patient acknowledges understanding with care plan -Time: +30 min Disposition Plan: Continue medical management Total Time Spent with Patient (Minutes): 45 min History Interval history: No acute events overnight. Hospitalist Physical - Constitutional Vitals: Temp Pulse Resp BP Pulse Ox 98.2 F 65 18 128/88 98 10/13/21 03:52 10/13/21 03:52 10/13/21 06:56 10/13/21 03:52 10/13/21 03:52 General appearance: Present: no acute distress, well-nourished, obese - EENT Eyes: Present: PERRL, EOM intact ENT: hearing intact, clear oral mucosa, dentition normal - Neck Neck: Present: supple, normal ROM - Respiratory Respiratory effort: normal Respiratory: bilateral: diminished (On 2 L nasal cannula) - Cardiovascular Rhythm: regular Heart Sounds: Present: S1 & S2 - Extremities Extremities: no ischemia, pulses intact, pulses symmetrical, normal temperature, normal color Extremity abnormal: edema (1+ pitting edema bilateral lower extremities) Peripheral Pulses: within normal limits - Abdominal General gastrointestinal: soft, non-tender, non-distended, normal bowel sounds - Integumentary Integumentary: Present: clear, warm, dry - Psychiatric Psychiatric: appropriate mood/affect, intact judgment & insight, memory intact, cooperative - Neurologic Neurologic: CNII-XII intact, moves all extremities - Allied Health Allied health notes reviewed: nursing HEART Score - HEART Score Age: 45-65 Risk factors: > 3 risk factors or hx of atherosclerotic disease Troponin: Troponin T 0.144 ng/mL (0.00-0.029) H* D 10/12/21 09:00 Troponin: 1-3x normal limit - Critical Actions Critical Actions: >7 pts:50-65% risk of adverse cardiac event. Early invasive measures Results - Labs CBC & Chem 7: 10/11/21 05:03 10/13/21 04:50 Labs: Laboratory Last Values WBC 8.9 K/mm3 (4.5-11.0) 10/11/21 05:03 RBC 3.91 M/mm3 (3.65-5.03) 10/11/21 05:03 Hgb 12.0 gm/dl (11.8-15.2) 10/11/21 05:03 Hct 37.9 % (35.5-45.6) 10/11/21 05:03 MCV 97 fl (84-94) H 10/11/21 05:03 MCH 31 pg (28-32) 10/11/21 05:03 MCHC 32 % (32-34) 10/11/21 05:03 RDW 15.2 % (13.2-15.2) 10/11/21 05:03 Plt Count 287 K/mm3 (140-440) 10/11/21 05:03 Lymph % (Auto) 23.0 % (13.4-35.0) 10/10/21 17:04 [place] % (Auto) [employer] 10/11/21 05:03 Eos % (Auto) 2.2 % (0.0-4.3) 10/10/21 17:04 Baso % (Auto) 1.0 % (0.0-1.8) 10/10/21 17:04 Lymph # (Auto) 1.7 K/mm3 (1.2-5.4) 10/10/21 17:04 [place] # (Auto) 0.9 K/mm3 (0.0-0.8) H 10/10/21 17:04 Eos # (Auto) 0.2 K/mm3 (0.0-0.4) 10/10/21 17:04 Baso # (Auto) 0.1 K/mm3 (0.0-0.1) 10/10/21 17:04 Add Manual Diff Complete 10/11/21 05:03 Total Counted 100 10/11/21 05:03 Seg Neutrophils % 61.1 % (40.0-70.0) 10/10/21 17:04 Seg Neuts % (Manual) 48.0 % (40.0-70.0) 10/11/21 05:03 Band Neutrophils % 0 % 10/11/21 05:03 Lymphocytes % (Manual) 32.0 % (13.4-35.0) 10/11/21 05:03 Reactive Lymphs % (Man) 2.0 % 10/11/21 05:03 Monocytes % (Manual) 16.0 % (0.0-7.3) H 10/11/21 05:03 Eosinophils % (Manual) 1.0 % (0.0-4.3) 10/11/21 05:03 Basophils % (Manual) 0 % (0.0-1.8) 10/11/21 05:03 Metamyelocytes % 1.0 % 10/11/21 05:03 Myelocytes % 0 % 10/11/21 05:03 Promyelocytes % 0 % 10/11/21 05:03 Blast Cells % 0 % 10/11/21 05:03 Nucleated RBC % 2.0 % (0.0-0.9) H 10/11/21 05:03 Seg Neutrophils # 4.5 K/mm3 (1.8-7.7) 10/10/21 17:04 Seg Neutrophils # Man 4.3 K/mm3 (1.8-7.7) 10/11/21 05:03 Band Neutrophils # 0.0 K/mm3 10/11/21 05:03 Lymphocytes # (Manual) 2.8 K/mm3 (1.2-5.4) 10/11/21 05:03 Abs React Lymphs (Man) 0.2 K/mm3 10/11/21 05:03 Monocytes # (Manual) 1.4 K/mm3 (0.0-0.8) H 10/11/21 05:03 Eosinophils # (Manual) 0.1 K/mm3 (0.0-0.4) 10/11/21 05:03 Basophils # (Manual) 0.0 K/mm3 (0.0-0.1) 10/11/21 05:03 Metamyelocytes # 0.1 K/mm3 10/11/21 05:03 Myelocytes # 0.0 K/mm3 10/11/21 05:03 Promyelocytes # 0.0 K/mm3 10/11/21 05:03 Blast Cells # 0.0 K/mm3 10/11/21 05:03 WBC Morphology Not Reportable 10/11/21 05:03 Hypersegmented Neuts Not Reportable 10/11/21 05:03 Hyposegmented Neuts Not Reportable 10/11/21 05:03 Hypogranular Neuts Not Reportable 10/11/21 05:03 Smudge Cells Not Reportable 10/11/21 05:03 Toxic Granulation Not Reportable 10/11/21 05:03 Toxic Vacuolation Not Reportable 10/11/21 05:03 Dohle Bodies Not Reportable 10/11/21 05:03 Pelger-Huet Anomaly Not Reportable 10/11/21 05:03 Su Rods Not Reportable 10/11/21 05:03 Platelet Estimate Consistent w auto 10/11/21 05:03 Clumped Platelets Not Reportable 10/11/21 05:03 Plt Clumps, EDTA Not Reportable 10/11/21 05:03 Large Platelets Not Reportable 10/11/21 05:03 Giant Platelets Not Reportable 10/11/21 05:03 Platelet Satelliting Not Reportable 10/11/21 05:03 Plt Morphology Comment Not Reportable 10/11/21 05:03 RBC Morphology Not Reportable 10/11/21 05:03 Dimorphic RBCs Not Reportable 10/11/21 05:03 Polychromasia Not Reportable 10/11/21 05:03 Hypochromasia Not Reportable 10/11/21 05:03 Poikilocytosis Not Reportable 10/11/21 05:03 Anisocytosis Not Reportable 10/11/21 05:03 Microcytosis Not Reportable 10/11/21 05:03 Macrocytosis Not Reportable 10/11/21 05:03 Spherocytes Not Reportable 10/11/21 05:03 Pappenheimer Bodies Not Reportable 10/11/21 05:03 Sickle Cells Not Reportable 10/11/21 05:03 Target Cells 1+ 10/11/21 05:03 Tear Drop Cells Not Reportable 10/11/21 05:03 Ovalocytes Not Reportable 10/11/21 05:03 Helmet Cells Not Reportable 10/11/21 05:03 [place] Bodies Not Reportable 10/11/21 05:03 [place] Rings Not Reportable 10/11/21 05:03 Josephine Cells Not Reportable 10/11/21 05:03 Bite Cells Not Reportable 10/11/21 05:03 Crenated Cell Not Reportable 10/11/21 05:03 Elliptocytes Not Reportable 10/11/21 05:03 Acanthocytes (Spur) Not Reportable 10/11/21 05:03 Rouleaux Not Reportable 10/11/21 05:03 Hemoglobin C Crystals Not Reportable 10/11/21 05:03 Schistocytes Not Reportable 10/11/21 05:03 Malaria parasites Not Reportable 10/11/21 05:03 Kartik Bodies Not Reportable 10/11/21 05:03 Hem Pathologist Commnt No 10/11/21 05:03 PT 16.9 Sec. (12.2-14.9) H 10/10/21 17:04 INR 1.23 (0.87-1.13) H 10/10/21 17:04 APTT 29.2 Sec. (24.2-36.6) 10/10/21 17:04 Sodium 138 mmol/L (137-145) 10/13/21 04:50 Potassium 4.6 mmol/L (3.6-5.0) 10/13/21 04:50 Chloride 101.6 mmol/L (98-107) 10/13/21 04:50 Carbon Dioxide 24 mmol/L (22-30) 10/13/21 04:50 Anion Gap 17 mmol/L 10/13/21 04:50 BUN 34 mg/dL (9-20) H 10/13/21 04:50 Creatinine 1.7 mg/dL (0.8-1.3) H 10/13/21 04:50 Estimated GFR 50 ml/min 10/13/21 04:50 BUN/Creatinine Ratio 20 % 10/13/21 04:50 Glucose 155 mg/dL (75-100) H 10/13/21 04:50 POC Glucose 115 mg/dL (70-105) H 10/13/21 11:38 Lactic Acid 1.50 mmol/L (0.7-2.0) 10/10/21 17:04 Calcium 9.2 mg/dL (8.4-10.2) 10/13/21 04:50 Magnesium 1.80 mg/dL (1.7-2.3) 10/10/21 17:04 Total Bilirubin 0.50 mg/dL (0.1-1.2) 10/11/21 05:03 AST 29 units/L (5-40) 10/11/21 05:03 ALT 29 units/L (7-56) 10/11/21 05:03 Alkaline Phosphatase 100 units/L (35-129) 10/11/21 05:03 Total Creatine Kinase 252 units/L (55-170) H 10/10/21 17:04 CK-MB (CK-2) 7.0 ng/mL (0.0-4.0) H 10/10/21 17:04 CK-MB (CK-2) Rel Index 2.7 (0-4) 10/10/21 17:04 Troponin T 0.144 ng/mL (0.00-0.029) H* D 10/12/21 09:00 NT-Pro-B Natriuret Pep 5565 pg/mL (0-900) H 10/10/21 17:04 Total Protein 8.7 g/dL (6.3-8.2) H 10/11/21 05:03 Albumin 3.8 g/dL (3.9-5) L 10/11/21 05:03 Albumin/Globulin Ratio 0.8 % 10/11/21 05:03 Triglycerides 104 mg/dL (2-149) 10/10/21 17:04 Cholesterol 100 mg/dL (50-199) 10/10/21 17:04 LDL Cholesterol Direct 57 mg/dL (50-130) 10/10/21 17:04 HDL Cholesterol 28 mg/dL (40-59) L 10/10/21 17:04 Cholesterol/HDL Ratio 3.57 % 10/10/21 17:04 Lipase 18 units/L (13-60) 10/10/21 17:04 Urine Color Yellow (Yellow) 10/10/21 Unknown Urine Turbidity Clear (Clear) 10/10/21 Unknown Urine pH 5.0 (5.0-7.0) 10/10/21 Unknown Ur Specific [place] 1.011 (1.003-1.030) 10/10/21 Unknown Urine Protein 100 mg/dl mg/dL (Negative) 10/10/21 Unknown Urine Glucose (UA) Neg mg/dL (Negative) 10/10/21 Unknown Urine Ketones Neg mg/dL (Negative) 10/10/21 Unknown Urine Blood Sm (Negative) 10/10/21 Unknown Urine Nitrite Neg (Negative) 10/10/21 Unknown Urine Bilirubin Neg (Negative) 10/10/21 Unknown Urine Urobilinogen < 2.0 mg/dL (<2.0) 10/10/21 Unknown Ur Leukocyte Esterase Neg (Negative) 10/10/21 Unknown Urine WBC (Auto) < 1.0 /HPF (0.0-6.0) 10/10/21 Unknown Urine RBC (Auto) < 1.0 /HPF (0.0-6.0) 10/10/21 Unknown Urine Mucus Few /HPF 10/10/21 Unknown Urine Opiates Screen Negative 10/10/21 Unknown Urine Methadone Screen Negative 10/10/21 Unknown Ur Barbiturates Screen Negative 10/10/21 Unknown Ur Phencyclidine Scrn Negative 10/10/21 Unknown Ur Amphetamines Screen Negative 10/10/21 Unknown U Benzodiazepines Scrn Negative 10/10/21 Unknown Urine Cocaine Screen Negative 10/10/21 Unknown U Marijuana (THC) Screen Negative 10/10/21 Unknown Drugs of Abuse Note Disclamer 10/10/21 Unknown Microbiology: Microbiology 10/10/21 Unknown Urine,Clean Catch Urine Culture - Final NO GROWTH AFTER 48 HOURS 10/10/21 17:04 Peripheral/Venous Blood Culture - Preliminary NO GROWTH AFTER 48 HOURS 10/10/21 17:04 Peripheral/Venous Blood Culture - Preliminary NO GROWTH AFTER 48 HOURS Active Medications - Current Medications Current Medications: Generic Name Dose Route Start Last Admin Trade Name Freq PRN Reason Stop Dose Admin Acetaminophen 650 mg 10/10/21 23:42 Acetaminophen 325 Mg Tab PO Q4H PRN Pain MILD(1-3)/Fever >100.5/BERUMEN Amiodarone HCl 200 mg 10/11/21 11:00 10/13/21 11:01 Amiodarone 200 Mg Tab PO 200 mg BID IMANI Administration Apixaban 5 mg 10/11/21 10:00 10/13/21 11:01 Apixaban 5 Mg Tab PO 5 mg Q12HR IMANI Administration Protocol Aspirin 81 mg 10/11/21 10:00 10/13/21 11:01 Aspirin Ec 81 Mg Tab PO 81 mg QDAY IMANI Administration Atorvastatin Calcium 40 mg 10/11/21 22:00 10/12/21 22:11 Atorvastatin 40 Mg Tab PO 40 mg QHS IMANI Administration Bisacodyl 10 mg 10/11/21 10:00 Bisacodyl 10 Mg Rect Supp OH QDAY PRN Constipation Furosemide 40 mg 10/10/21 23:50 10/13/21 06:56 Furosemide 40 Mg/4 Ml Inj IV 40 mg 0600,1800 IMANI Administration Glipizide 5 mg 10/13/21 08:00 10/13/21 11:00 Glipizide Xl 5 Mg Tab PO 5 mg QDDIAB IMANI Administration Insulin Human Lispro 0 unit 10/11/21 07:30 10/13/21 12:02 Insulin Lispro 100 Unit/Ml SUB-Q Not Given A[facility]S [facility] Protocol Losartan Potassium 50 mg 10/11/21 10:00 10/13/21 11:00 Losartan 50 Mg Tab PO 50 mg QDAY IMANI Administration Metoclopramide HCl 10 mg 10/10/21 23:42 Metoclopramide 10 Mg/2 Ml Inj IV Q6H PRN Nausea And Vomiting Metoprolol Tartrate 100 mg 10/11/21 10:00 10/13/21 11:01 Metoprolol Tartrate 100 Mg Tab PO 100 mg BID IMANI Administration Morphine Sulfate 2 mg 10/10/21 23:42 10/11/21 23:24 Morphine 2 Mg/1 Ml Inj IV 2 mg Q4H PRN Administration Pain, Moderate (4-6) Ondansetron HCl 4 mg 10/10/21 23:42 Ondansetron 4 Mg/2 Ml Inj IV Q8H PRN Nausea And Vomiting Oxycodone/Acetaminophen 1 tab 10/10/21 23:42 10/13/21 06:56 Oxycodone /Acetaminophen 5-325mg Tab PO 1 tab Q6H PRN Administration Pain, Moderate (4-6) Sodium Chloride 10 ml 10/11/21 10:00 10/13/21 11:01 Sodium Chloride 0.9% 10 Ml Flush Syringe IV 10 ml BID IMANI Administration Sodium Chloride 10 ml 10/10/21 23:42 Sodium Chloride 0.9% 10 Ml Flush Syringe IV PRN PRN LINE FLUSH
[2021-10-14 05:32] LABS: Calcium 9.1 mg/dL (8.4-10.2)
[2021-10-14] MEDS: FUROSEMIDE 40 MG/4 ML INJ IV SCH ×2 (06:27→17:53)
[2021-10-14] MEDS: glipiZIDE XL 5 MG TAB PO SCH (09:18)
[2021-10-14] MEDS: LOSARTAN 50 MG TAB PO SCH (09:18)
[2021-10-14] MEDS: AMIODARONE 200 MG TAB PO SCH ×3 (09:18→22:38)
[2021-10-14] MEDS: APIXABAN 5 MG TAB PO SCH ×2 (09:18→22:35)
[2021-10-14] MEDS: METOPROLOL TARTRATE 100 MG TAB PO SCH ×2 (09:19→22:35)
[2021-10-14] MEDS: INSULIN LISPRO 100 UNIT/ML SUB-Q SCH ×4 (09:19→22:39)
[2021-10-14] MEDS: ASPIRIN EC 81 MG TAB PO SCH (09:19)
--- NOTE | 2021-10-14 09:33 | Progress Note ---
Assessment and Plan Assessment and plan: #Acute hypoxic respiratory failureimproving - etiology: Likely secondary to presumed heart failure - baseline oxygen requirements: Room air - supplemental oxygen: 2 L nasal cannula - Continue protocol: continue pulse oximetry, wean oxygen as tolerated, ordered incentive spirometry and educated patient on how to use it and its importance. - continue to monitor #Acute on chronic systolic heart failureimproving - Continue CHF exacerbation protocol: Telemetry, Strict I/O, monitor urine output every shift, daily weights, afterload reduction, low-sodium diet, and fluid restriction of approximately 1.5 mL/day, IV Lasix 40 mg twice daily - Supplemental oxygen: 2 L nasal cannula - ProBNP on admission: 5565 - Cardiology consulted; appreciate recs -TTE (10/12/2021) revealing EF 20 to 25% with normal-sized LV, severely decreased LV systolic function, mild concentric LVH, severe global hypokinesis of LV, dilated RV, mildly dilated RA, and RVSP is 40 mmHg. - Continue to monitor #AKIimproving Creatinine 1.2--> 1.6--> 1.7--> 1.5 Likely secondary to cardiorenal syndrome in the setting of presumed heart f ailure exacerbation. Should improve as volume status improves. Renally dose meds and avoid nephrotoxic drugs. Continue to monitor. #Paroxysmal atrial fibrillation Continue Eliquis 5 mg every 12 hours. Continue amiodarone 200 mg twice daily, metoprolol tartrate 100 mg twice daily, and holding home diltiazem 240 mg daily. #Non-insulin dependent type II diabetes mellitus with hyperglycemiastable - hemoglobin A1c: Unknown - home regimen: Glipizide 10 mg twice daily, semaglutide 3 mg twice daily, metformin 1000 mg twice daily - current regimen: Glipizide 5 mg daily - blood glucose goal 140-180 while inpatient - continue to monitor #Hyperlipidemia #Hypertension - home medications: atorvastatin 20 mg daily, losartan 50 mg daily - current medications: Atorvastatin 40 mg daily, losartan 50 mg daily - SBP goal <160 and DBP goal <90 while inpatient - continue to monitor #Mild protein caloric malnutrition Albumin 3.8 Continue dietary supplementation #Morbid obesity #Weight loss counseling #Exercise counseling - BMI 44 - Counseled patient on the importance of weight loss, incorporating exercise, an d dietary changes (lean meats, fresh fruits and vegetables, and water intake). Patient expresses understanding. - Time: +15 min #Advanced care planning -Disease education conducted, care plan discussed, diagnoses discussed, prognosis discussed, and patient acknowledges understanding with care plan -Time: +30 min #Discharge planning - Patient is pending resolution of heart failure exacerbation and respiratory failure. - Case management has been made aware. - Discharge is tentatively 3-4 days. Disposition Plan: Continue medical management Total Time Spent with Patient (Minutes): 45 minutes History Interval history: No acute events overnight. Hospitalist Physical - Constitutional Vitals: Temp Pulse Resp BP Pulse Ox 97.4 F L 75 17 114/76 98 10/14/21 08:54 10/14/21 08:54 10/14/21 06:18 10/14/21 08:54 10/14/21 08:54 General appearance: Present: no acute distress, well-nourished, obese - EENT Eyes: Present: PERRL, EOM intact ENT: hearing intact, clear oral mucosa, dentition normal - Neck Neck: Present: supple, normal ROM - Respiratory Respiratory effort: normal Respiratory: bilateral: diminished (3 L nasal cannula) - Cardiovascular Rhythm: regular Heart Sounds: Present: S1 & S2 - Extremities Extremities: no ischemia, pulses intact, pulses symmetrical, normal temperature, normal color Extremity abnormal: edema (1+ pitting edema bilateral lower extremities) Peripheral Pulses: within normal limits - Abdominal General gastrointestinal: soft, non-tender, non-distended, normal bowel sounds - Integumentary Integumentary: Present: clear, warm, dry - Psychiatric Psychiatric: appropriate mood/affect, intact judgment & insight, memory intact, cooperative - Neurologic Neurologic: CNII-XII intact, moves all extremities - Additional findings Additional findings: Abrasion at base of penis at approximately 2:00. Not suggestive of infection; however, causing significant pain for the patient. - Allied Health Allied health notes reviewed: nursing HEART Score - HEART Score Age: 45-65 Risk factors: > 3 risk factors or hx of atherosclerotic disease Troponin: Troponin T 0.144 ng/mL (0.00-0.029) H* D 10/12/21 09:00 Troponin: 1-3x normal limit - Critical Actions Critical Actions: >7 pts:50-65% risk of adverse cardiac event. Early invasive measures Results - Labs CBC & Chem 7: 10/11/21 05:03 10/14/21 04:37 Labs: Laboratory Last Values WBC 8.9 K/mm3 (4.5-11.0) 10/11/21 05:03 RBC 3.91 M/mm3 (3.65-5.03) 10/11/21 05:03 Hgb 12.0 gm/dl (11.8-15.2) 10/11/21 05:03 Hct 37.9 % (35.5-45.6) 10/11/21 05:03 MCV 97 fl (84-94) H 10/11/21 05:03 MCH 31 pg (28-32) 10/11/21 05:03 MCHC 32 % (32-34) 10/11/21 05:03 RDW 15.2 % (13.2-15.2) 10/11/21 05:03 Plt Count 287 K/mm3 (140-440) 10/11/21 05:03 Lymph % (Auto) 23.0 % (13.4-35.0) 10/10/21 17:04 Mcduffie % (Auto) Final Application Reviewer 10/11/21 05:03 Eos % (Auto) 2.2 % (0.0-4.3) 10/10/21 17:04 Baso % (Auto) 1.0 % (0.0-1.8) 10/10/21 17:04 Lymph # (Auto) 1.7 K/mm3 (1.2-5.4) 10/10/21 17:04 Mcduffie # (Auto) 0.9 K/mm3 (0.0-0.8) H 10/10/21 17:04 Eos # (Auto) 0.2 K/mm3 (0.0-0.4) 10/10/21 17:04 Baso # (Auto) 0.1 K/mm3 (0.0-0.1) 10/10/21 17:04 Add Manual Diff Complete 10/11/21 05:03 Total Counted 100 10/11/21 05:03 Seg Neutrophils % 61.1 % (40.0-70.0) 10/10/21 17:04 Seg Neuts % (Manual) 48.0 % (40.0-70.0) 10/11/21 05:03 Band Neutrophils % 0 % 10/11/21 05:03 Lymphocytes % (Manual) 32.0 % (13.4-35.0) 10/11/21 05:03 Reactive Lymphs % (Man) 2.0 % 10/11/21 05:03 Monocytes % (Manual) 16.0 % (0.0-7.3) H 10/11/21 05:03 Eosinophils % (Manual) 1.0 % (0.0-4.3) 10/11/21 05:03 Basophils % (Manual) 0 % (0.0-1.8) 10/11/21 05:03 Metamyelocytes % 1.0 % 10/11/21 05:03 Myelocytes % 0 % 10/11/21 05:03 Promyelocytes % 0 % 10/11/21 05:03 Blast Cells % 0 % 10/11/21 05:03 Nucleated RBC % 2.0 % (0.0-0.9) H 10/11/21 05:03 Seg Neutrophils # 4.5 K/mm3 (1.8-7.7) 10/10/21 17:04 Seg Neutrophils # Man 4.3 K/mm3 (1.8-7.7) 10/11/21 05:03 Band Neutrophils # 0.0 K/mm3 10/11/21 05:03 Lymphocytes # (Manual) 2.8 K/mm3 (1.2-5.4) 10/11/21 05:03 Abs React Lymphs (Man) 0.2 K/mm3 10/11/21 05:03 Monocytes # (Manual) 1.4 K/mm3 (0.0-0.8) H 10/11/21 05:03 Eosinophils # (Manual) 0.1 K/mm3 (0.0-0.4) 10/11/21 05:03 Basophils # (Manual) 0.0 K/mm3 (0.0-0.1) 10/11/21 05:03 Metamyelocytes # 0.1 K/mm3 10/11/21 05:03 Myelocytes # 0.0 K/mm3 10/11/21 05:03 Promyelocytes # 0.0 K/mm3 10/11/21 05:03 Blast Cells # 0.0 K/mm3 10/11/21 05:03 WBC Morphology Not Reportable 10/11/21 05:03 Hypersegmented Neuts Not Reportable 10/11/21 05:03 Hyposegmented Neuts Not Reportable 10/11/21 05:03 Hypogranular Neuts Not Reportable 10/11/21 05:03 Smudge Cells Not Reportable 10/11/21 05:03 Toxic Granulation Not Reportable 10/11/21 05:03 Toxic Vacuolation Not Reportable 10/11/21 05:03 Dohle Bodies Not Reportable 10/11/21 05:03 Pelger-Huet Anomaly Not Reportable 10/11/21 05:03 Su Rods Not Reportable 10/11/21 05:03 Platelet Estimate Consistent w auto 10/11/21 05:03 Clumped Platelets Not Reportable 10/11/21 05:03 Plt Clumps, EDTA Not Reportable 10/11/21 05:03 Large Platelets Not Reportable 10/11/21 05:03 Giant Platelets Not Reportable 10/11/21 05:03 Platelet Satelliting Not Reportable 10/11/21 05:03 Plt Morphology Comment Not Reportable 10/11/21 05:03 RBC Morphology Not Reportable 10/11/21 05:03 Dimorphic RBCs Not Reportable 10/11/21 05:03 Polychromasia Not Reportable 10/11/21 05:03 Hypochromasia Not Reportable 10/11/21 05:03 Poikilocytosis Not Reportable 10/11/21 05:03 Anisocytosis Not Reportable 10/11/21 05:03 Microcytosis Not Reportable 10/11/21 05:03 Macrocytosis Not Reportable 10/11/21 05:03 Spherocytes Not Reportable 10/11/21 05:03 Pappenheimer Bodies Not Reportable 10/11/21 05:03 Sickle Cells Not Reportable 10/11/21 05:03 Target Cells 1+ 10/11/21 05:03 Tear Drop Cells Not Reportable 10/11/21 05:03 Ovalocytes Not Reportable 10/11/21 05:03 Helmet Cells Not Reportable 10/11/21 05:03 Pol[place] Bodies Not Reportable 10/11/21 05:03 [place] Rings Not Reportable 10/11/21 05:03 Josephine Cells Not Reportable 10/11/21 05:03 Bite Cells Not Reportable 10/11/21 05:03 Crenated Cell Not Reportable 10/11/21 05:03 Elliptocytes Not Reportable 10/11/21 05:03 Acanthocytes (Spur) Not Reportable 10/11/21 05:03 Rouleaux Not Reportable 10/11/21 05:03 Hemoglobin C Crystals Not Reportable 10/11/21 05:03 Schistocytes Not Reportable 10/11/21 05:03 Malaria parasites Not Reportable 10/11/21 05:03 Kartik Bodies Not Reportable 10/11/21 05:03 Hem Pathologist Commnt No 10/11/21 05:03 PT 16.9 Sec. (12.2-14.9) H 10/10/21 17:04 INR 1.23 (0.87-1.13) H 10/10/21 17:04 APTT 29.2 Sec. (24.2-36.6) 10/10/21 17:04 Sodium 139 mmol/L (137-145) 10/14/21 04:37 Potassium 4.0 mmol/L (3.6-5.0) 10/14/21 04:37 Chloride 101.5 mmol/L (98-107) 10/14/21 04:37 Carbon Dioxide 25 mmol/L (22-30) 10/14/21 04:37 Anion Gap 17 mmol/L 10/14/21 04:37 BUN 36 mg/dL (9-20) H 10/14/21 04:37 Creatinine 1.5 mg/dL (0.8-1.3) H 10/14/21 04:37 Estimated GFR 57 ml/min 10/14/21 04:37 BUN/Creatinine Ratio 24 % 10/14/21 04:37 Glucose 139 mg/dL (75-100) H 10/14/21 04:37 POC Glucose 114 mg/dL (70-105) H 10/13/21 20:18 Lactic Acid 1.50 mmol/L (0.7-2.0) 10/10/21 17:04 Calcium 9.1 mg/dL (8.4-10.2) 10/14/21 04:37 Magnesium 1.80 mg/dL (1.7-2.3) 10/10/21 17:04 Total Bilirubin 0.50 mg/dL (0.1-1.2) 10/11/21 05:03 AST 29 units/L (5-40) 10/11/21 05:03 ALT 29 units/L (7-56) 10/11/21 05:03 Alkaline Phosphatase 100 units/L (35-129) 10/11/21 05:03 Total Creatine Kinase 252 units/L (55-170) H 10/10/21 17:04 CK-MB (CK-2) 7.0 ng/mL (0.0-4.0) H 10/10/21 17:04 CK-MB (CK-2) Rel Index 2.7 (0-4) 10/10/21 17:04 Troponin T 0.144 ng/mL (0.00-0.029) H* D 10/12/21 09:00 NT-Pro-B Natriuret Pep 5565 pg/mL (0-900) H 10/10/21 17:04 Total Protein 8.7 g/dL (6.3-8.2) H 10/11/21 05:03 Albumin 3.8 g/dL (3.9-5) L 10/11/21 05:03 Albumin/Globulin Ratio 0.8 % 10/11/21 05:03 Triglycerides 104 mg/dL (2-149) 10/10/21 17:04 Cholesterol 100 mg/dL (50-199) 10/10/21 17:04 LDL Cholesterol Direct 57 mg/dL (50-130) 10/10/21 17:04 HDL Cholesterol 28 mg/dL (40-59) L 10/10/21 17:04 Cholesterol/HDL Ratio 3.57 % 10/10/21 17:04 Lipase 18 units/L (13-60) 10/10/21 17:04 Urine Color Yellow (Yellow) 10/10/21 Unknown Urine Turbidity Clear (Clear) 10/10/21 Unknown Urine pH 5.0 (5.0-7.0) 10/10/21 Unknown Ur Specific [place] 1.011 (1.003-1.030) 10/10/21 Unknown Urine Protein 100 mg/dl mg/dL (Negative) 10/10/21 Unknown Urine Glucose (UA) Neg mg/dL (Negative) 10/10/21 Unknown Urine Ketones Neg mg/dL (Negative) 10/10/21 Unknown Urine Blood Sm (Negative) 10/10/21 Unknown Urine Nitrite Neg (Negative) 10/10/21 Unknown Urine Bilirubin Neg (Negative) 10/10/21 Unknown Urine Urobilinogen < 2.0 mg/dL (<2.0) 10/10/21 Unknown Ur Leukocyte Esterase Neg (Negative) 10/10/21 Unknown Urine WBC (Auto) < 1.0 /HPF (0.0-6.0) 10/10/21 Unknown Urine RBC (Auto) < 1.0 /HPF (0.0-6.0) 10/10/21 Unknown Urine Mucus Few /HPF 10/10/21 Unknown Urine Opiates Screen Negative 10/10/21 Unknown Urine Methadone Screen Negative 10/10/21 Unknown Ur Barbiturates Screen Negative 10/10/21 Unknown Ur Phencyclidine Scrn Negative 10/10/21 Unknown Ur Amphetamines Screen Negative 10/10/21 Unknown U Benzodiazepines Scrn Negative 10/10/21 Unknown Urine Cocaine Screen Negative 10/10/21 Unknown U Marijuana (THC) Screen Negative 10/10/21 Unknown Drugs of Abuse Note Disclamer 10/10/21 Unknown Microbiology: Microbiology 10/10/21 17:04 Peripheral/Venous Blood Culture - Preliminary NO GROWTH AFTER 72 HOURS 10/10/21 17:04 Peripheral/Venous Blood Culture - Preliminary NO GROWTH AFTER 72 HOURS 10/10/21 Unknown Urine,Clean Catch Urine Culture - Final NO GROWTH AFTER 48 HOURS [place]/IV: Voiding Method Urinal Active Medications - Current Medications Current Medications: Generic Name Dose Route Start Last Admin Trade Name Freq PRN Reason Stop Dose Admin Acetaminophen 650 mg 10/10/21 23:42 Acetaminophen 325 Mg Tab PO Q4H PRN Pain MILD(1-3)/Fever >100.5/BERUMEN Amiodarone HCl 200 mg 10/11/21 11:00 10/13/21 22:47 Amiodarone 200 Mg Tab PO 200 mg BID IMANI Administration Apixaban 5 mg 10/11/21 10:00 10/13/21 22:47 Apixaban 5 Mg Tab PO 5 mg Q12HR IMANI Administration Protocol Aspirin 81 mg 10/11/21 10:00 10/13/21 11:01 Aspirin Ec 81 Mg Tab PO 81 mg QDAY IMANI Administration Atorvastatin Calcium 40 mg 10/11/21 22:00 10/13/21 22:47 Atorvastatin 40 Mg Tab PO 40 mg QHS IMANI Administration Bisacodyl 10 mg 10/11/21 10:00 Bisacodyl 10 Mg Rect Supp [place] QDAY PRN Constipation Furosemide 40 mg 10/10/21 23:50 10/14/21 06:27 Furosemide 40 Mg/4 Ml Inj IV 40 mg 0600,1800 IMANI Administration Glipizide 5 mg 10/13/21 08:00 10/13/21 11:00 Glipizide Xl 5 Mg Tab PO 5 mg QDDIAB IAMNI Administration Insulin Human Lispro 0 unit 10/11/21 07:30 10/13/21 22:49 Insulin Lispro 100 Unit/Ml SUB-Q Not Given ACHS [facility] Protocol Losartan Potassium 50 mg 10/11/21 10:00 10/13/21 11:00 Losartan 50 Mg Tab PO 50 mg QDAY IMANI Administration Metoclopramide HCl 10 mg 10/10/21 23:42 Metoclopramide 10 Mg/2 Ml Inj IV Q6H PRN Nausea And Vomiting Metoprolol Tartrate 100 mg 10/11/21 10:00 10/13/21 22:46 Metoprolol Tartrate 100 Mg Tab PO 100 mg BID IMANI Administration Morphine Sulfate 2 mg 10/10/21 23:42 10/11/21 23:24 Morphine 2 Mg/1 Ml Inj IV 2 mg Q4H PRN Administration Pain, Moderate (4-6) Ondansetron HCl 4 mg 10/10/21 23:42 Ondansetron 4 Mg/2 Ml Inj IV Q8H PRN Nausea And Vomiting Oxycodone/Acetaminophen 1 tab 10/10/21 23:42 10/13/21 23:32 Oxycodone /Acetaminophen 5-325mg Tab PO 1 tab Q6H PRN Administration Pain, Moderate (4-6) Sodium Chloride 10 ml 10/11/21 10:00 10/13/21 11:01 Sodium Chloride 0.9% 10 Ml Flush Syringe IV 10 ml BID IMANI Administration Sodium Chloride 10 ml 10/10/21 23:42 Sodium Chloride 0.9% 10 Ml Flush Syringe IV PRN PRN LINE FLUSH
--- NOTE | 2021-10-14 16:55 | Progress Note ---
Assessment and Plan Assessment and plan: #Acute hypoxic respiratory failureimproving - etiology: Likely secondary to presumed heart failure - baseline oxygen requirements: Room air - supplemental oxygen: 2 L nasal cannula - Continue protocol: continue pulse oximetry, wean oxygen as tolerated, ordered incentive spirometry and educated patient on how to use it and its importance. - continue to monitor #Acute on chronic systolic heart failureimproving - Continue CHF exacerbation protocol: Telemetry, Strict I/O, monitor urine output every shift, daily weights, afterload reduction, low-sodium diet, and fluid restriction of approximately 1.5 mL/day, IV Lasix 40 mg twice daily - Supplemental oxygen: 2 L nasal cannula - ProBNP on admission: 5565 - Cardiology consulted; appreciate recs -TTE (10/12/2021) revealing EF 20 to 25% with normal-sized LV, severely decreased LV systolic function, mild concentric LVH, severe global hypokinesis of LV, dilated RV, mildly dilated RA, and RVSP is 40 mmHg. - Continue to monitor #AKIimproving Creatinine 1.2--> 1.6--> 1.7--> 1.5 Likely secondary to cardiorenal syndrome in the setting of presumed heart f ailure exacerbation. Should improve as volume status improves. Renally dose meds and avoid nephrotoxic drugs. Continue to monitor. #Paroxysmal atrial fibrillation Continue Eliquis 5 mg every 12 hours. Continue amiodarone 200 mg twice daily, metoprolol tartrate 100 mg twice daily, and holding home diltiazem 240 mg daily. #Non-insulin dependent type II diabetes mellitus with hyperglycemiastable - hemoglobin A1c: Unknown - home regimen: Glipizide 10 mg twice daily, semaglutide 3 mg twice daily, metformin 1000 mg twice daily - current regimen: Glipizide 5 mg daily - blood glucose goal 140-180 while inpatient - continue to monitor #Hyperlipidemia #Hypertension - home medications: atorvastatin 20 mg daily, losartan 50 mg daily - current medications: Atorvastatin 40 mg daily, losartan 50 mg daily - SBP goal <160 and DBP goal <90 while inpatient - continue to monitor #Mild protein caloric malnutrition Albumin 3.8 Continue dietary supplementation #Morbid obesity #Weight loss counseling #Exercise counseling - BMI 44 - Counseled patient on the importance of weight loss, incorporating exercise, an d dietary changes (lean meats, fresh fruits and vegetables, and water intake). Patient expresses understanding. - Time: +15 min #Advanced care planning -Disease education conducted, care plan discussed, diagnoses discussed, prognosis discussed, and patient acknowledges understanding with care plan -Time: +30 min #Discharge planning - Patient is pending resolution of heart failure exacerbation and respiratory failure. - Case management has been made aware. Disposition Plan: Continue medical management Total Time Spent with Patient (Minutes): 45 minutes History Interval history: No acute events overnight. Hospitalist Physical - Constitutional Vitals: Temp Pulse Resp BP Pulse Ox 97.4 F L 75 17 114/76 98 10/14/21 08:54 10/14/21 08:54 10/14/21 06:18 10/14/21 08:54 10/14/21 08:54 General appearance: Present: no acute distress, well-nourished, obese - EENT Eyes: Present: PERRL, EOM intact ENT: hearing intact, clear oral mucosa, dentition normal - Neck Neck: Present: supple, normal ROM - Respiratory Respiratory effort: normal Respiratory: bilateral: diminished (On 2 L nasal cannula) - Cardiovascular Rhythm: regular Heart Sounds: Present: S1 & S2 - Extremities Extremities: no ischemia, pulses intact, pulses symmetrical, normal temperature, normal color, Full ROM Extremity abnormal: edema (1+ pitting edema bilateral lower extremities) Peripheral Pulses: within normal limits - Abdominal General gastrointestinal: soft, non-tender, non-distended, normal bowel sounds - Integumentary Integumentary: Present: clear, warm, dry - Psychiatric Psychiatric: appropriate mood/affect - Neurologic Neurologic: CNII-XII intact, moves all extremities - Allied Health Allied health notes reviewed: nursing HEART Score - HEART Score Age: 45-65 Risk factors: > 3 risk factors or hx of atherosclerotic disease Troponin: Troponin T 0.144 ng/mL (0.00-0.029) H* D 10/12/21 09:00 Troponin: 1-3x normal limit - Critical Actions Critical Actions: >7 pts:50-65% risk of adverse cardiac event. Early invasive measures Results - Labs CBC & Chem 7: 10/11/21 05:03 10/15/21 05:19 Labs: Laboratory Last Values WBC 8.9 K/mm3 (4.5-11.0) 10/11/21 05:03 RBC 3.91 M/mm3 (3.65-5.03) 10/11/21 05:03 Hgb 12.0 gm/dl (11.8-15.2) 10/11/21 05:03 Hct 37.9 % (35.5-45.6) 10/11/21 05:03 MCV 97 fl (84-94) H 10/11/21 05:03 MCH 31 pg (28-32) 10/11/21 05:03 MCHC 32 % (32-34) 10/11/21 05:03 RDW 15.2 % (13.2-15.2) 10/11/21 05:03 Plt Count 287 K/mm3 (140-440) 10/11/21 05:03 Lymph % (Auto) 23.0 % (13.4-35.0) 10/10/21 17:04 [place] % (Auto) Customer Greeter 10/11/21 05:03 Eos % (Auto) 2.2 % (0.0-4.3) 10/10/21 17:04 Baso % (Auto) 1.0 % (0.0-1.8) 10/10/21 17:04 Lymph # (Auto) 1.7 K/mm3 (1.2-5.4) 10/10/21 17:04 [place] # (Auto) 0.9 K/mm3 (0.0-0.8) H 10/10/21 17:04 Eos # (Auto) 0.2 K/mm3 (0.0-0.4) 10/10/21 17:04 Baso # (Auto) 0.1 K/mm3 (0.0-0.1) 10/10/21 17:04 Add Manual Diff Complete 10/11/21 05:03 Total Counted 100 10/11/21 05:03 Seg Neutrophils % 61.1 % (40.0-70.0) 10/10/21 17:04 Seg Neuts % (Manual) 48.0 % (40.0-70.0) 10/11/21 05:03 Band Neutrophils % 0 % 10/11/21 05:03 Lymphocytes % (Manual) 32.0 % (13.4-35.0) 10/11/21 05:03 Reactive Lymphs % (Man) 2.0 % 10/11/21 05:03 Monocytes % (Manual) 16.0 % (0.0-7.3) H 10/11/21 05:03 Eosinophils % (Manual) 1.0 % (0.0-4.3) 10/11/21 05:03 Basophils % (Manual) 0 % (0.0-1.8) 10/11/21 05:03 Metamyelocytes % 1.0 % 10/11/21 05:03 Myelocytes % 0 % 10/11/21 05:03 Promyelocytes % 0 % 10/11/21 05:03 Blast Cells % 0 % 10/11/21 05:03 Nucleated RBC % 2.0 % (0.0-0.9) H 10/11/21 05:03 Seg Neutrophils # 4.5 K/mm3 (1.8-7.7) 10/10/21 17:04 Seg Neutrophils # Man 4.3 K/mm3 (1.8-7.7) 10/11/21 05:03 Band Neutrophils # 0.0 K/mm3 10/11/21 05:03 Lymphocytes # (Manual) 2.8 K/mm3 (1.2-5.4) 10/11/21 05:03 Abs React Lymphs (Man) 0.2 K/mm3 10/11/21 05:03 Monocytes # (Manual) 1.4 K/mm3 (0.0-0.8) H 10/11/21 05:03 Eosinophils # (Manual) 0.1 K/mm3 (0.0-0.4) 10/11/21 05:03 Basophils # (Manual) 0.0 K/mm3 (0.0-0.1) 10/11/21 05:03 Metamyelocytes # 0.1 K/mm3 10/11/21 05:03 Myelocytes # 0.0 K/mm3 10/11/21 05:03 Promyelocytes # 0.0 K/mm3 10/11/21 05:03 Blast Cells # 0.0 K/mm3 10/11/21 05:03 WBC Morphology Not Reportable 10/11/21 05:03 Hypersegmented Neuts Not Reportable 10/11/21 05:03 Hyposegmented Neuts Not Reportable 10/11/21 05:03 Hypogranular Neuts Not Reportable 10/11/21 05:03 Smudge Cells Not Reportable 10/11/21 05:03 Toxic Granulation Not Reportable 10/11/21 05:03 Toxic Vacuolation Not Reportable 10/11/21 05:03 Dohle Bodies Not Reportable 10/11/21 05:03 Pelger-Huet Anomaly Not Reportable 10/11/21 05:03 Su Rods Not Reportable 10/11/21 05:03 Platelet Estimate Consistent w auto 10/11/21 05:03 Clumped Platelets Not Reportable 10/11/21 05:03 Plt Clumps, EDTA Not Reportable 10/11/21 05:03 Large Platelets Not Reportable 10/11/21 05:03 Giant Platelets Not Reportable 10/11/21 05:03 Platelet Satelliting Not Reportable 10/11/21 05:03 Plt Morphology Comment Not Reportable 10/11/21 05:03 RBC Morphology Not Reportable 10/11/21 05:03 Dimorphic RBCs Not Reportable 10/11/21 05:03 Polychromasia Not Reportable 10/11/21 05:03 Hypochromasia Not Reportable 10/11/21 05:03 Poikilocytosis Not Reportable 10/11/21 05:03 Anisocytosis Not Reportable 10/11/21 05:03 Microcytosis Not Reportable 10/11/21 05:03 Macrocytosis Not Reportable 10/11/21 05:03 Spherocytes Not Reportable 10/11/21 05:03 Pappenheimer Bodies Not Reportable 10/11/21 05:03 Sickle Cells Not Reportable 10/11/21 05:03 Target Cells 1+ 10/11/21 05:03 Tear Drop Cells Not Reportable 10/11/21 05:03 Ovalocytes Not Reportable 10/11/21 05:03 Helmet Cells Not Reportable 10/11/21 05:03 [place] Bodies Not Reportable 10/11/21 05:03 [place] Rings Not Reportable 10/11/21 05:03 [place] Cells Not Reportable 10/11/21 05:03 Bite Cells Not Reportable 10/11/21 05:03 Crenated Cell Not Reportable 10/11/21 05:03 Elliptocytes Not Reportable 10/11/21 05:03 Acanthocytes (Spur) Not Reportable 10/11/21 05:03 Rouleaux Not Reportable 10/11/21 05:03 Hemoglobin C Crystals Not Reportable 10/11/21 05:03 Schistocytes Not Reportable 10/11/21 05:03 Malaria parasites Not Reportable 10/11/21 05:03 Kartik Bodies Not Reportable 10/11/21 05:03 Hem Pathologist Commnt No 10/11/21 05:03 PT 16.9 Sec. (12.2-14.9) H 10/10/21 17:04 INR 1.23 (0.87-1.13) H 10/10/21 17:04 APTT 29.2 Sec. (24.2-36.6) 10/10/21 17:04 Sodium 139 mmol/L (137-145) 10/14/21 04:37 Potassium 4.0 mmol/L (3.6-5.0) 10/14/21 04:37 Chloride 101.5 mmol/L (98-107) 10/14/21 04:37 Carbon Dioxide 25 mmol/L (22-30) 10/14/21 04:37 Anion Gap 17 mmol/L 10/14/21 04:37 BUN 36 mg/dL (9-20) H 10/14/21 04:37 Creatinine 1.5 mg/dL (0.8-1.3) H 10/14/21 04:37 Estimated GFR 57 ml/min 10/14/21 04:37 BUN/Creatinine Ratio 24 % 10/14/21 04:37 Glucose 139 mg/dL (75-100) H 10/14/21 04:37 POC Glucose 128 mg/dL (70-105) H 10/14/21 16:41 Lactic Acid 1.50 mmol/L (0.7-2.0) 10/10/21 17:04 Calcium 9.1 mg/dL (8.4-10.2) 10/14/21 04:37 Magnesium 1.80 mg/dL (1.7-2.3) 10/10/21 17:04 Total Bilirubin 0.50 mg/dL (0.1-1.2) 10/11/21 05:03 AST 29 units/L (5-40) 10/11/21 05:03 ALT 29 units/L (7-56) 10/11/21 05:03 Alkaline Phosphatase 100 units/L (35-129) 10/11/21 05:03 Total Creatine Kinase 252 units/L (55-170) H 10/10/21 17:04 CK-MB (CK-2) 7.0 ng/mL (0.0-4.0) H 10/10/21 17:04 CK-MB (CK-2) Rel Index 2.7 (0-4) 10/10/21 17:04 Troponin T 0.144 ng/mL (0.00-0.029) H* D 10/12/21 09:00 NT-Pro-B Natriuret Pep 5565 pg/mL (0-900) H 10/10/21 17:04 Total Protein 8.7 g/dL (6.3-8.2) H 10/11/21 05:03 Albumin 3.8 g/dL (3.9-5) L 10/11/21 05:03 Albumin/Globulin Ratio 0.8 % 10/11/21 05:03 Triglycerides 104 mg/dL (2-149) 10/10/21 17:04 Cholesterol 100 mg/dL (50-199) 10/10/21 17:04 LDL Cholesterol Direct 57 mg/dL (50-130) 10/10/21 17:04 HDL Cholesterol 28 mg/dL (40-59) L 10/10/21 17:04 Cholesterol/HDL Ratio 3.57 % 10/10/21 17:04 Lipase 18 units/L (13-60) 10/10/21 17:04 Urine Color Yellow (Yellow) 10/10/21 Unknown Urine Turbidity Clear (Clear) 10/10/21 Unknown Urine pH 5.0 (5.0-7.0) 10/10/21 Unknown Ur Specific [place] 1.011 (1.003-1.030) 10/10/21 Unknown Urine Protein 100 mg/dl mg/dL (Negative) 10/10/21 Unknown Urine Glucose (UA) Neg mg/dL (Negative) 10/10/21 Unknown Urine Ketones Neg mg/dL (Negative) 10/10/21 Unknown Urine Blood Sm (Negative) 10/10/21 Unknown Urine Nitrite Neg (Negative) 10/10/21 Unknown Urine Bilirubin Neg (Negative) 10/10/21 Unknown Urine Urobilinogen < 2.0 mg/dL (<2.0) 10/10/21 Unknown Ur Leukocyte Esterase Neg (Negative) 10/10/21 Unknown Urine WBC (Auto) < 1.0 /HPF (0.0-6.0) 10/10/21 Unknown Urine RBC (Auto) < 1.0 /HPF (0.0-6.0) 10/10/21 Unknown Urine Mucus Few /HPF 10/10/21 Unknown Urine Opiates Screen Negative 10/10/21 Unknown Urine Methadone Screen Negative 10/10/21 Unknown Ur Barbiturates Screen Negative 10/10/21 Unknown Ur Phencyclidine Scrn Negative 10/10/21 Unknown Ur Amphetamines Screen Negative 10/10/21 Unknown U Benzodiazepines Scrn Negative 10/10/21 Unknown Urine Cocaine Screen Negative 10/10/21 Unknown U Marijuana (THC) Screen Negative 10/10/21 Unknown Drugs of Abuse Note Disclamer 10/10/21 Unknown Microbiology: Microbiology 10/10/21 17:04 Peripheral/Venous Blood Culture - Preliminary NO GROWTH AFTER 72 HOURS 10/10/21 17:04 Peripheral/Venous Blood Culture - Preliminary NO GROWTH AFTER 72 HOURS 10/10/21 Unknown Urine,Clean Catch Urine Culture - Final NO GROWTH AFTER 48 HOURS [place]/IV: Voiding Method Urinal Active Medications - Current Medications Current Medications: Generic Name Dose Route Start Last Admin Trade Name Freq PRN Reason Stop Dose Admin Acetaminophen 650 mg 10/10/21 23:42 Acetaminophen 325 Mg Tab PO Q4H PRN Pain MILD(1-3)/Fever >100.5/BERUMEN Amiodarone HCl 200 mg 10/11/21 11:00 10/14/21 09:18 Amiodarone 200 Mg Tab PO 200 mg BID IMANI Administration Apixaban 5 mg 10/11/21 10:00 10/14/21 09:18 Apixaban 5 Mg Tab PO 5 mg Q12HR IMANI Administration Protocol Aspirin 81 mg 10/11/21 10:00 10/14/21 09:19 Aspirin Ec 81 Mg Tab PO 81 mg QDAY IMANI Administration Atorvastatin Calcium 40 mg 10/11/21 22:00 10/13/21 22:47 Atorvastatin 40 Mg Tab PO 40 mg QHS IMANI Administration Bisacodyl 10 mg 10/11/21 10:00 Bisacodyl 10 Mg Rect Supp PA QDAY PRN Constipation Furosemide 40 mg 10/10/21 23:50 10/14/21 06:27 Furosemide 40 Mg/4 Ml Inj IV 40 mg 0600,1800 IMANI Administration Glipizide 5 mg 10/13/21 08:00 10/14/21 09:18 Glipizide Xl 5 Mg Tab PO 5 mg QDDIAB IMANI Administration Insulin Human Lispro 0 unit 10/11/21 07:30 10/14/21 13:20 Insulin Lispro 100 Unit/Ml SUB-Q Not Given ACHS [facility] Protocol Losartan Potassium 50 mg 10/11/21 10:00 10/14/21 09:18 Losartan 50 Mg Tab PO 50 mg QDAY IMANI Administration Metoclopramide HCl 10 mg 10/10/21 23:42 Metoclopramide 10 Mg/2 Ml Inj IV Q6H PRN Nausea And Vomiting Metoprolol Tartrate 100 mg 10/11/21 10:00 10/14/21 09:19 Metoprolol Tartrate 100 Mg Tab PO Not Given BID [facility] Morphine Sulfate 2 mg 10/10/21 23:42 10/11/21 23:24 Morphine 2 Mg/1 Ml Inj IV 2 mg Q4H PRN Administration Pain, Moderate (4-6) Ondansetron HCl 4 mg 10/10/21 23:42 Ondansetron 4 Mg/2 Ml Inj IV Q8H PRN Nausea And Vomiting Oxycodone/Acetaminophen 1 tab 10/10/21 23:42 10/13/21 23:32 Oxycodone /Acetaminophen 5-325mg Tab PO 1 tab Q6H PRN Administration Pain, Moderate (4-6) Sodium Chloride 10 ml 10/11/21 10:00 10/14/21 09:19 Sodium Chloride 0.9% 10 Ml Flush Syringe IV 10 ml BID IMANI Administration Sodium Chloride 10 ml 10/10/21 23:42 Sodium Chloride 0.9% 10 Ml Flush Syringe IV PRN PRN LINE FLUSH
--- NOTE | 2021-10-14 18:46 | Progress Note ---
Assessment and Plan Reduce metoprolol dose. Increase amiodarone temporarily with the hope of better controlling his atrial and ventricular arrhythmias. Hold ARB or now in the setting of RICHIE. Ischemic evaluation when more stable. - Patient Problems (1) Acute on chronic HFrEF (heart failure with reduced ejection fraction) Current Visit: Yes Status: Acute (2) Paroxysmal atrial fibrillation with RVR Current Visit: Yes Status: Acute (3) NSVT (nonsustained ventricular tachycardia) Current Visit: Yes Status: Acute (4) Cardiomyopathy Current Visit: Yes Status: Chronic (5) RICHIE (acute kidney injury) Current Visit: Yes Status: Acute (6) Non-STEMI (non-ST elevated myocardial infarction) Current Visit: Yes Status: Acute (7) HTN (hypertension) Current Visit: Yes Status: Chronic Qualifiers: Hypertension type: primary hypertension Qualified Code(s): I10 - Essential (primary) hypertension (8) T2DM (type 2 diabetes mellitus) Current Visit: Yes Status: Chronic Qualifiers: Diabetes mellitus fdc insulin use: unspecified joint terminal attack controller insulin use status (9) Asthma Current Visit: Yes Status: Chronic (10) Morbid obesity Current Visit: Yes Status: Chronic Subjective Date of service: 10/14/21 Principal diagnosis: Acute on chronic HFrEF Interval history: He is less short of breath. He claims that his biggest concern right now is leg and scrotal edema. Objective Vital Signs Temp Pulse Resp Resp BP BP Pulse Ox 10/14/21 16:02 128/93 10/14/21 15:58 98.2 F 86 135/56 96 10/14/21 08:54 97.4 F L 75 114/76 98 10/14/21 06:18 98.3 F 96 H 17 122/95 95 10/14/21 04:30 94 H 10/14/21 03:27 17 97 10/14/21 00:32 17 10/14/21 00:00 92 H 10/13/21 23:32 17 10/13/21 22:50 98.3 F 84 17 173/99 97 10/13/21 22:46 84 173/99 10/13/21 20:01 56 L 17 128/74 100 10/13/21 19:55 88 - Physical Examination General: No Apparent Distress HEENT: Positive: Normocephaly, Mucus Membranes Moist Neck: Positive: neck supple, trachea midline, JVD/HJR Cardiac: Positive: irregularly irregular, S1/S2 Lungs: Positive: clear to auscultation Neuro: Positive: Grossly Intact Abdomen: Positive: Soft, Active Bowel Sounds. Negative: Tender Skin: Negative: Rash, Suspicious Lesions, Ulceration Musculoskeletal: Normal Range of Motion Extremities: Present: +3 Edema (both legs), Other (scrotal edema) - Labs and Meds Comprehensive Metabolic Panel 10/14/21 Range/Units 04:37 Sodium 139 (137-145) mmol/L Potassium 4.0 (3.6-5.0) mmol/L Chloride 101.5 (98-107) mmol/L Carbon Dioxide 25 (22-30) mmol/L BUN 36 H (9-20) mg/dL Creatinine 1.5 H (0.8-1.3) mg/dL Glucose 139 H (75-100) mg/dL Calcium 9.1 (8.4-10.2) mg/dL - Imaging and Cardiology Echo: report reviewed - Telemetry EKG Rhythm: Atrial Fibrillation (with RVR) - EKG Ventricular dysrhythmias: ventricular premature com, non-sustained ventricular (9-beat 10/13/21 PM) Repolarization changes or abnormalities: nonspecific abnormality, ST segment, and/or T wave
[2021-10-15] MEDS: oxyCODONE /ACETAMINOPHEN 5-325MG TAB PO PRN ×2 (00:44→21:50)
[2021-10-15] MEDS: FUROSEMIDE 40 MG/4 ML INJ IV SCH ×2 (05:34→17:05)
[2021-10-15] MEDS: METOPROLOL TARTRATE 100 MG TAB PO SCH ×3 (05:37→17:05)
[2021-10-15 07:08] LABS: BUN/Creatinine Ratio 23; Blood Urea Nitrogen 30 mg/dL (9-20); Calcium 9.1 mg/dL (8.4-10.2); Hemolysis Index 1
[2021-10-15] MEDS: INSULIN LISPRO 100 UNIT/ML SUB-Q SCH ×4 (10:27→22:30)
[2021-10-15] MEDS: APIXABAN 5 MG TAB PO SCH ×2 (10:29→21:45)
[2021-10-15] MEDS: glipiZIDE XL 5 MG TAB PO SCH (10:29)
[2021-10-15] MEDS: AMIODARONE 200 MG TAB PO SCH ×3 (10:29→21:49)
[2021-10-15] MEDS: ASPIRIN EC 81 MG TAB PO SCH (10:30)
--- NOTE | 2021-10-15 17:19 | Progress Note ---
Assessment and Plan Continue loading doses of amiodarone as well as diuretics and other management. Consider Lexiscan stress MPI when his arrhythmia has stabilized. - Patient Problems (1) Acute on chronic HFrEF (heart failure with reduced ejection fraction) Current Visit: Yes Status: Acute (2) Paroxysmal atrial fibrillation with RVR Current Visit: Yes Status: Acute (3) NSVT (nonsustained ventricular tachycardia) Current Visit: Yes Status: Acute (4) Cardiomyopathy Current Visit: Yes Status: Chronic (5) RICHIE (acute kidney injury) Current Visit: Yes Status: Acute (6) Non-STEMI (non-ST elevated myocardial infarction) Current Visit: Yes Status: Acute (7) HTN (hypertension) Current Visit: Yes Status: Chronic Qualifiers: Hypertension type: primary hypertension Qualified Code(s): I10 - Essential (primary) hypertension (8) T2DM (type 2 diabetes mellitus) Current Visit: Yes Status: Chronic Qualifiers: Diabetes mellitus snf insulin use: unspecified supervisor customer complaint service insulin use status (9) Asthma Current Visit: Yes Status: Chronic (10) Morbid obesity Current Visit: Yes Status: Chronic Subjective Date of service: 10/15/21 Principal diagnosis: Acute on chronic HFrEF, AF with RVR Interval history: He feels better this morning. Remains in atrial fibrillation with mildly RVR. Objective Vital Signs Last Vital Signs Temp 97.9 F 10/15/21 05:32 Pulse 58 L 10/15/21 15:15 Resp 18 10/15/21 15:15 BP 122/94 10/15/21 15:15 Pulse Ox 98 10/15/21 15:15 - Physical Examination General: No Apparent Distress HEENT: Positive: EOMI, Normocephaly, Mucus Membranes Moist Neck: Positive: neck supple, trachea midline, JVD/HJR Cardiac: Positive: irregularly irregular, S1/S2 Neuro: Positive: Grossly Intact Abdomen: Positive: Soft, Active Bowel Sounds. Negative: Tender Skin: Negative: Rash, Suspicious Lesions, Ulceration Musculoskeletal: Normal Range of Motion Extremities: Present: +2 Edema (Pitting bilateral leg edema), Other (scrotal edema) - Labs and Meds Comprehensive Metabolic Panel 10/15/21 Range/Units 05:19 Sodium 142 (137-145) mmol/L Potassium 4.0 (3.6-5.0) mmol/L Chloride 100.5 (98-107) mmol/L Carbon Dioxide 30 (22-30) mmol/L BUN 30 H (9-20) mg/dL Creatinine 1.3 (0.8-1.3) mg/dL Glucose 163 H (75-100) mg/dL Calcium 9.1 (8.4-10.2) mg/dL - Imaging and Cardiology EKG: report reviewed (Sinus tachycardia) Echo: report reviewed - Telemetry EKG Rhythm: Atrial Fibrillation (with RVR) - EKG Ventricular dysrhythmias: ventricular premature com, non-sustained ventricular (9-beat 10/13/21 PM) Repolarization changes or abnormalities: nonspecific abnormality, ST segment, and/or T wave
[2021-10-16] MEDS: METOPROLOL TARTRATE 100 MG TAB PO SCH ×3 (00:59→09:01)
[2021-10-16] MEDS: MORPHINE 2 MG/1 ML INJ IV PRN (01:04)
[2021-10-16] MEDS: FUROSEMIDE 40 MG/4 ML INJ IV SCH ×2 (05:25→16:59)
[2021-10-16 05:32] LABS: BUN/Creatinine Ratio 19; Blood Urea Nitrogen 26 mg/dL (9-20); Calcium 8.8 mg/dL (8.4-10.2); Hemolysis Index 0
[2021-10-16] MEDS ORDERED: REGADENOSON 0.4 MG/5 ML INJ IV ONE (06:53)
[2021-10-16] MEDS: INSULIN LISPRO 100 UNIT/ML SUB-Q SCH ×4 (07:52→22:00)
[2021-10-16] MEDS: AMIODARONE 200 MG TAB PO SCH (08:58)
[2021-10-16] MEDS: glipiZIDE XL 5 MG TAB PO SCH (09:01)
[2021-10-16] MEDS: ASPIRIN EC 81 MG TAB PO SCH (09:02)
[2021-10-16] MEDS: APIXABAN 5 MG TAB PO SCH ×2 (09:02→21:33)
--- NOTE | 2021-10-16 09:53 | Progress Note ---
Assessment and Plan Patient is 61 y/o male, who previously follows with Dr. Moreau of our group, with a pmhx of Afib/flutter s/p cardioversion 06/17/2020 HTN, HFrEF, DM, Obesity, and GERD who presented to the ED for complaint of SOB that has been going on for the last month or 2 however he reports that it has been significantly worse in the last 2 to 3 days. Acute on chronic HFrEF RICHIE NSTEMI suspect type II A. fib/atrial flutter Hypertension Diabetes Obesity Asthma Echo 10/10/2021-EF 20 to 25%. Mild concentric LVH. Right ventricle is dilated. Right ventricular systolic function is normal. Mild mitral regurgitation. No pericardial effusion Echo 12/30/2020-EF 35 to 40%, moderate left ventricular hypertrophy, right ventricular systolic function is mildly reduced, left atrium not well visualized, right atrium is mildly dilated, saline bubble study demonstrates no PFO. Lexiscan MPI stress 08/2018- demonstrates moderately to severe post stress left ventricular systolic dysfunction with no significant evidence for myocardial ischemia or necrosis Plan: Anticoagulated on Eliquis Continue aspirin, Lipitor, Increase to metoprolol 50 mg p.o. every 6 hours Will stop amiodarone and initiate IV digoxin 0.25 mg every 6 hours x4 doses Suspect elevated creatinine due to cardiorenal syndrome however will hold KARLI or ARB at this time due to elevated creatinine Patient continues to report good urine output. Continue diuresis with Lasix 40 mg IV twice daily. Strict I&O's close monitor of renal function and repeat BMP in the a.m. Patient refused Lexiscan stress test at this time. We will plan for outpatient ischemic eval Plan of care discussed with patient's who verbalized understanding and agreement Patient seen in conjunction with Dr. Doyle who agrees with this plan of care - Patient Problems (1) Atrial fibrillation Current Visit: Yes Status: Chronic Qualifiers: Atrial fibrillation type: paroxysmal Qualified Code(s): I48.0 - Paroxysmal atrial fibrillation (2) Hyperlipidemia Current Visit: Yes Status: Chronic Qualifiers: Hyperlipidemia type: mixed hyperlipidemia Qualified Code(s): E78.2 - Mixed hyperlipidemia (3) Hypertension Current Visit: Yes Status: Chronic Qualifiers: Hypertension type: primary hypertension Qualified Code(s): I10 - Essential (primary) hypertension (4) T2DM (type 2 diabetes mellitus) Current Visit: Yes Status: Chronic Qualifiers: Diabetes mellitus senior living insulin use: unspecified senior living insulin use status (5) Hypertension Current Visit: No Status: Acute (6) Non-STEMI (non-ST elevated myocardial infarction) Current Visit: Yes Status: Acute (7) Cardiomyopathy Current Visit: Yes Status: Chronic Subjective Date of service: 10/16/21 Principal diagnosis: Acute on chronic HFrEF, AF with RVR Interval history: Patient resting in bed in no acute distress. Patient reports continued improvement in respiratory status and good urine output. Patient refused stress test this a.m. A. fib 90- low 100s on monitor with episode into 130s with activity Objective Vital Signs Temp Pulse Pulse Resp BP BP Pulse Ox 10/16/21 05:23 98.6 F 100 H 17 121/95 100 10/16/21 01:34 17 10/16/21 01:04 17 10/16/21 00:59 93 H 145/82 10/16/21 00:53 98.6 F 93 H 17 145/82 98 10/16/21 00:00 95 H 10/15/21 22:50 17 10/15/21 21:50 17 10/15/21 21:39 98.8 F 99 H 18 115/68 99 10/15/21 19:45 89 19 97 10/15/21 15:15 58 L 18 122/94 98 10/15/21 14:00 94 H 10/15/21 12:00 97 H 21 97 - Physical Examination General: No Apparent Distress HEENT: Positive: EOMI, Normocephaly, Mucus Membranes Moist Neck: Positive: neck supple, trachea midline, JVD/HJR Cardiac: Positive: irregularly irregular Lungs: Positive: Normal Breath Sounds Neuro: Positive: Grossly Intact Abdomen: Positive: Soft, Active Bowel Sounds. Negative: Tender Skin: Negative: Rash, Suspicious Lesions, Ulceration Musculoskeletal: Normal Range of Motion Extremities: Present: +2 Edema (Pitting bilateral leg edema), Other (scrotal edema) - Labs and Meds Comprehensive Metabolic Panel 10/16/21 Range/Units 04:15 Sodium 140 (137-145) mmol/L Potassium 3.7 (3.6-5.0) mmol/L Chloride 101.0 (98-107) mmol/L Carbon Dioxide 29 (22-30) mmol/L BUN 26 H (9-20) mg/dL Creatinine 1.4 H (0.8-1.3) mg/dL Glucose 135 H (75-100) mg/dL Calcium 8.8 (8.4-10.2) mg/dL - Imaging and Cardiology EKG: report reviewed (Sinus tachycardia) Echo: report reviewed - Telemetry EKG Rhythm: Atrial Fibrillation - EKG Supraventricular dysrhythmia: atrial fibrillation Ventricular dysrhythmias: ventricular premature com, non-sustained ventricular (9-beat 10/13/21 PM) Repolarization changes or abnormalities: nonspecific abnormality, ST segment, and/or T wave
[2021-10-16] MEDS ORDERED: METOPROLOL TARTRATE 100 MG TAB PO SCH (10:00)
[2021-10-16] MEDS: METOPROLOL TARTRATE 50 MG TAB PO SCH ×3 (10:25→21:33)
[2021-10-16] MEDS: DIGOXIN 0.5 MG/2 ML INJ IV SCH ×3 (11:54→23:58)
--- NOTE | 2021-10-16 12:17 | Progress Note ---
Assessment and Plan Assessment and plan: #Acute hypoxic respiratory failureimproving - etiology: Likely secondary to presumed heart failure - baseline oxygen requirements: Room air - supplemental oxygen: 2 L nasal cannula - Continue protocol: continue pulse oximetry, wean oxygen as tolerated, ordered incentive spirometry and educated patient on how to use it and its importance. - continue to monitor #Acute on chronic systolic heart failureimproving - Continue CHF exacerbation protocol: Telemetry, Strict I/O, monitor urine output every shift, daily weights, afterload reduction, low-sodium diet, and fluid restriction of approximately 1.5 mL/day, IV Lasix 40 mg twice daily - Supplemental oxygen: 2 L nasal cannula - ProBNP on admission: 5565 - Cardiology consulted; appreciate recs -TTE (10/12/2021) revealing EF 20 to 25% with normal-sized LV, severely decreased LV systolic function, mild concentric LVH, severe global hypokinesis of LV, dilated RV, mildly dilated RA, and RVSP is 40 mmHg. -Patient refused myocardial perfusion scan this morning. Can be performed in outpatient setting. #AKIimproving Creatinine 1.2--> 1.6--> 1.7--> 1.5 Likely secondary to cardiorenal syndrome in the setting of presumed heart failure exacerbation. Should improve as volume status improves. Renally dose meds and avoid nephrotoxic drugs. Continue to monitor. #Paroxysmal atrial fibrillation Continue Eliquis 5 mg every 12 hours. Discontinue amiodarone 200 mg twice daily and replace with IV digoxin 0.25 mg every 6 hours x4 doses. Continue metoprolol tartrate 100 mg twice daily, and holding home diltiazem 240 mg daily. #Non-insulin dependent type II diabetes mellitus with hyperglycemiastable - hemoglobin A1c: Unknown - home regimen: Glipizide 10 mg twice daily, semaglutide 3 mg twice daily, metformin 1000 mg twice daily - current regimen: Glipizide 5 mg daily - blood glucose goal 140-180 while inpatient - continue to monitor #Hyperlipidemia #Hypertension - home medications: atorvastatin 20 mg daily, losartan 50 mg daily - current medications: Atorvastatin 40 mg daily, losartan 50 mg daily - SBP goal <160 and DBP goal <90 while inpatient - continue to monitor #Mild protein caloric malnutrition Albumin 3.8 Continue dietary supplementation #Morbid obesity #Weight loss counseling #Exercise counseling - BMI 44 - Counseled patient on the importance of weight loss, incorporating exercise, and dietary changes (lean meats, fresh fruits and vegetables, and water intake). Patient expresses understanding. - Time: +15 min #Advanced care planning -Disease education conducted, care plan discussed, diagnoses discussed, prognosis discussed, and patient acknowledges understanding with care plan -Time: +30 min #Discharge planning - Patient is pending resolution of heart failure exacerbation and respiratory failure. - Case management has been made aware. Disposition Plan: Continue medical management Total Time Spent with Patient (Minutes): 30 minutes History Interval history: No acute events overnight. Hospitalist Physical - Constitutional Vitals: Temp Pulse Resp BP Pulse Ox 98.6 F 88 20 120/54 97 10/16/21 05:23 10/16/21 11:54 10/16/21 10:51 10/16/21 11:54 10/16/21 10:51 General appearance: Present: no acute distress, well-nourished, obese - EENT Eyes: Present: PERRL, EOM intact ENT: hearing intact, clear oral mucosa, dentition normal - Neck Neck: Present: supple, normal ROM - Respiratory Respiratory effort: normal Respiratory: bilateral: diminished (On 2 L nasal cannula) - Cardiovascular Rhythm: regular Heart Sounds: Present: S1 & S2 - Extremities Extremities: no ischemia, pulses intact, pulses symmetrical, normal temperature, normal color Extremity abnormal: edema (1+ pitting edema bilateral lower extremities) Peripheral Pulses: within normal limits - Abdominal General gastrointestinal: soft, non-tender, non-distended, normal bowel sounds - Integumentary Integumentary: Present: clear, warm, dry - Psychiatric Psychiatric: appropriate mood/affect, intact judgment & insight, memory intact, cooperative - Neurologic Neurologic: CNII-XII intact, moves all extremities - Allied Health Allied health notes reviewed: nursing HEART Score - HEART Score Age: 45-65 Risk factors: > 3 risk factors or hx of atherosclerotic disease Troponin: Troponin T 0.144 ng/mL (0.00-0.029) H* D 10/12/21 09:00 Troponin: 1-3x normal limit - Critical Actions Critical Actions: >7 pts:50-65% risk of adverse cardiac event. Early invasive measures Results - Labs CBC & Chem 7: 10/11/21 05:03 10/16/21 04:15 Labs: Laboratory Last Values WBC 8.9 K/mm3 (4.5-11.0) 10/11/21 05:03 RBC 3.91 M/mm3 (3.65-5.03) 10/11/21 05:03 Hgb 12.0 gm/dl (11.8-15.2) 10/11/21 05:03 Hct 37.9 % (35.5-45.6) 10/11/21 05:03 MCV 97 fl (84-94) H 10/11/21 05:03 MCH 31 pg (28-32) 10/11/21 05:03 MCHC 32 % (32-34) 10/11/21 05:03 RDW 15.2 % (13.2-15.2) 10/11/21 05:03 Plt Count 287 K/mm3 (140-440) 10/11/21 05:03 Lymph % (Auto) 23.0 % (13.4-35.0) 10/10/21 17:04 [place] % (Auto) Pen Tester 10/11/21 05:03 Eos % (Auto) 2.2 % (0.0-4.3) 10/10/21 17:04 Baso % (Auto) 1.0 % (0.0-1.8) 10/10/21 17:04 Lymph # (Auto) 1.7 K/mm3 (1.2-5.4) 10/10/21 17:04 [place] # (Auto) 0.9 K/mm3 (0.0-0.8) H 10/10/21 17:04 Eos # (Auto) 0.2 K/mm3 (0.0-0.4) 10/10/21 17:04 Baso # (Auto) 0.1 K/mm3 (0.0-0.1) 10/10/21 17:04 Add Manual Diff Complete 10/11/21 05:03 Total Counted 100 10/11/21 05:03 Seg Neutrophils % 61.1 % (40.0-70.0) 10/10/21 17:04 Seg Neuts % (Manual) 48.0 % (40.0-70.0) 10/11/21 05:03 Band Neutrophils % 0 % 10/11/21 05:03 Lymphocytes % (Manual) 32.0 % (13.4-35.0) 10/11/21 05:03 Reactive Lymphs % (Man) 2.0 % 10/11/21 05:03 Monocytes % (Manual) 16.0 % (0.0-7.3) H 10/11/21 05:03 Eosinophils % (Manual) 1.0 % (0.0-4.3) 10/11/21 05:03 Basophils % (Manual) 0 % (0.0-1.8) 10/11/21 05:03 Metamyelocytes % 1.0 % 10/11/21 05:03 Myelocytes % 0 % 10/11/21 05:03 Promyelocytes % 0 % 10/11/21 05:03 Blast Cells % 0 % 10/11/21 05:03 Nucleated RBC % 2.0 % (0.0-0.9) H 10/11/21 05:03 Seg Neutrophils # 4.5 K/mm3 (1.8-7.7) 10/10/21 17:04 Seg Neutrophils # Man 4.3 K/mm3 (1.8-7.7) 10/11/21 05:03 Band Neutrophils # 0.0 K/mm3 10/11/21 05:03 Lymphocytes # (Manual) 2.8 K/mm3 (1.2-5.4) 10/11/21 05:03 Abs React Lymphs (Man) 0.2 K/mm3 10/11/21 05:03 Monocytes # (Manual) 1.4 K/mm3 (0.0-0.8) H 10/11/21 05:03 Eosinophils # (Manual) 0.1 K/mm3 (0.0-0.4) 10/11/21 05:03 Basophils # (Manual) 0.0 K/mm3 (0.0-0.1) 10/11/21 05:03 Metamyelocytes # 0.1 K/mm3 10/11/21 05:03 Myelocytes # 0.0 K/mm3 10/11/21 05:03 Promyelocytes # 0.0 K/mm3 10/11/21 05:03 Blast Cells # 0.0 K/mm3 10/11/21 05:03 WBC Morphology Not Reportable 10/11/21 05:03 Hypersegmented Neuts Not Reportable 10/11/21 05:03 Hyposegmented Neuts Not Reportable 10/11/21 05:03 Hypogranular Neuts Not Reportable 10/11/21 05:03 Smudge Cells Not Reportable 10/11/21 05:03 Toxic Granulation Not Reportable 10/11/21 05:03 Toxic Vacuolation Not Reportable 10/11/21 05:03 Dohle Bodies Not Reportable 10/11/21 05:03 Pelger-Huet Anomaly Not Reportable 10/11/21 05:03 Su Rods Not Reportable 10/11/21 05:03 Platelet Estimate Consistent w auto 10/11/21 05:03 Clumped Platelets Not Reportable 10/11/21 05:03 Plt Clumps, EDTA Not Reportable 10/11/21 05:03 Large Platelets Not Reportable 10/11/21 05:03 Giant Platelets Not Reportable 10/11/21 05:03 Platelet Satelliting Not Reportable 10/11/21 05:03 Plt Morphology Comment Not Reportable 10/11/21 05:03 RBC Morphology Not Reportable 10/11/21 05:03 Dimorphic RBCs Not Reportable 10/11/21 05:03 Polychromasia Not Reportable 10/11/21 05:03 Hypochromasia Not Reportable 10/11/21 05:03 Poikilocytosis Not Reportable 10/11/21 05:03 Anisocytosis Not Reportable 10/11/21 05:03 Microcytosis Not Reportable 10/11/21 05:03 Macrocytosis Not Reportable 10/11/21 05:03 Spherocytes Not Reportable 10/11/21 05:03 Pappenheimer Bodies Not Reportable 10/11/21 05:03 Sickle Cells Not Reportable 10/11/21 05:03 Target Cells 1+ 10/11/21 05:03 Tear Drop Cells Not Reportable 10/11/21 05:03 Ovalocytes Not Reportable 10/11/21 05:03 Helmet Cells Not Reportable 10/11/21 05:03 [place] Bodies Not Reportable 10/11/21 05:03 [place] Rings Not Reportable 10/11/21 05:03 Josephine Cells Not Reportable 10/11/21 05:03 Bite Cells Not Reportable 10/11/21 05:03 Crenated Cell Not Reportable 10/11/21 05:03 Elliptocytes Not Reportable 10/11/21 05:03 Acanthocytes (Spur) Not Reportable 10/11/21 05:03 Rouleaux Not Reportable 10/11/21 05:03 Hemoglobin C Crystals Not Reportable 10/11/21 05:03 Schistocytes Not Reportable 10/11/21 05:03 Malaria parasites Not Reportable 10/11/21 05:03 Kartik Bodies Not Reportable 10/11/21 05:03 Hem Pathologist Commnt No 10/11/21 05:03 PT 16.9 Sec. (12.2-14.9) H 10/10/21 17:04 INR 1.23 (0.87-1.13) H 10/10/21 17:04 APTT 29.2 Sec. (24.2-36.6) 10/10/21 17:04 Sodium 140 mmol/L (137-145) 10/16/21 04:15 Potassium 3.7 mmol/L (3.6-5.0) 10/16/21 04:15 Chloride 101.0 mmol/L (98-107) 10/16/21 04:15 Carbon Dioxide 29 mmol/L (22-30) 10/16/21 04:15 Anion Gap 14 mmol/L 10/16/21 04:15 BUN 26 mg/dL (9-20) H 10/16/21 04:15 Creatinine 1.4 mg/dL (0.8-1.3) H 10/16/21 04:15 Estimated GFR > 60 ml/min 10/16/21 04:15 BUN/Creatinine Ratio 19 % 10/16/21 04:15 Glucose 135 mg/dL (75-100) H 10/16/21 04:15 POC Glucose 138 mg/dL (70-105) H 10/16/21 11:06 Lactic Acid 1.50 mmol/L (0.7-2.0) 10/10/21 17:04 Calcium 8.8 mg/dL (8.4-10.2) 10/16/21 04:15 Magnesium 1.80 mg/dL (1.7-2.3) 10/10/21 17:04 Total Bilirubin 0.50 mg/dL (0.1-1.2) 10/11/21 05:03 AST 29 units/L (5-40) 10/11/21 05:03 ALT 29 units/L (7-56) 10/11/21 05:03 Alkaline Phosphatase 100 units/L (35-129) 10/11/21 05:03 Total Creatine Kinase 252 units/L (55-170) H 10/10/21 17:04 CK-MB (CK-2) 7.0 ng/mL (0.0-4.0) H 10/10/21 17:04 CK-MB (CK-2) Rel Index 2.7 (0-4) 10/10/21 17:04 Troponin T 0.144 ng/mL (0.00-0.029) H* D 10/12/21 09:00 NT-Pro-B Natriuret Pep 5565 pg/mL (0-900) H 10/10/21 17:04 Total Protein 8.7 g/dL (6.3-8.2) H 10/11/21 05:03 Albumin 3.8 g/dL (3.9-5) L 10/11/21 05:03 Albumin/Globulin Ratio 0.8 % 10/11/21 05:03 Triglycerides 104 mg/dL (2-149) 10/10/21 17:04 Cholesterol 100 mg/dL (50-199) 10/10/21 17:04 LDL Cholesterol Direct 57 mg/dL (50-130) 10/10/21 17:04 HDL Cholesterol 28 mg/dL (40-59) L 10/10/21 17:04 Cholesterol/HDL Ratio 3.57 % 10/10/21 17:04 Lipase 18 units/L (13-60) 10/10/21 17:04 Urine Color Yellow (Yellow) 10/10/21 Unknown Urine Turbidity Clear (Clear) 10/10/21 Unknown Urine pH 5.0 (5.0-7.0) 10/10/21 Unknown Ur Specific [place] 1.011 (1.003-1.030) 10/10/21 Unknown Urine Protein 100 mg/dl mg/dL (Negative) 10/10/21 Unknown Urine Glucose (UA) Neg mg/dL (Negative) 10/10/21 Unknown Urine Ketones Neg mg/dL (Negative) 10/10/21 Unknown Urine Blood Sm (Negative) 10/10/21 Unknown Urine Nitrite Neg (Negative) 10/10/21 Unknown Urine Bilirubin Neg (Negative) 10/10/21 Unknown Urine Urobilinogen < 2.0 mg/dL (<2.0) 10/10/21 Unknown Ur Leukocyte Esterase Neg (Negative) 10/10/21 Unknown Urine WBC (Auto) < 1.0 /HPF (0.0-6.0) 10/10/21 Unknown Urine RBC (Auto) < 1.0 /HPF (0.0-6.0) 10/10/21 Unknown Urine Mucus Few /HPF 10/10/21 Unknown Urine Opiates Screen Negative 10/10/21 Unknown Urine Methadone Screen Negative 10/10/21 Unknown Ur Barbiturates Screen Negative 10/10/21 Unknown Ur Phencyclidine Scrn Negative 10/10/21 Unknown Ur Amphetamines Screen Negative 10/10/21 Unknown U Benzodiazepines Scrn Negative 10/10/21 Unknown Urine Cocaine Screen Negative 10/10/21 Unknown U Marijuana (THC) Screen Negative 10/10/21 Unknown Drugs of Abuse Note Disclamer 10/10/21 Unknown Microbiology: Microbiology 10/10/21 17:04 Peripheral/Venous Blood Culture - Final NO GROWTH AFTER 5 DAYS 10/10/21 17:04 Peripheral/Venous Blood Culture - Final NO GROWTH AFTER 5 DAYS [place]/IV: Voiding Method Urinal Active Medications - Current Medications Current Medications: Generic Name Dose Route Start Last Admin Trade Name Freq PRN Reason Stop Dose Admin Acetaminophen 650 mg 10/10/21 23:42 Acetaminophen 325 Mg Tab PO Q4H PRN Pain MILD(1-3)/Fever >100.5/BERUMEN Apixaban 5 mg 10/11/21 10:00 10/16/21 09:02 Apixaban 5 Mg Tab PO 5 mg Q12HR IMANI Administration Protocol Aspirin 81 mg 10/11/21 10:00 10/16/21 09:02 Aspirin Ec 81 Mg Tab PO 81 mg QDAY IMANI Administration Atorvastatin Calcium 40 mg 10/11/21 22:00 10/15/21 21:45 Atorvastatin 40 Mg Tab PO 40 mg QHS IMANI Administration Bisacodyl 10 mg 10/11/21 10:00 Bisacodyl 10 Mg Rect Supp MA QDAY PRN Constipation Digoxin 0.25 mg 10/16/21 12:00 10/16/21 11:54 Digoxin 0.5 Mg/2 Ml Inj IV 10/17/21 06:01 0.25 mg Q6HR IMANI Administration Furosemide 40 mg 10/10/21 23:50 10/16/21 05:25 Furosemide 40 Mg/4 Ml Inj IV 40 mg 0600,1800 IMANI Administration Glipizide 5 mg 10/13/21 08:00 10/16/21 09:01 Glipizide Xl 5 Mg Tab PO 5 mg QDDIAB IMANI Administration Insulin Human Lispro 0 unit 10/11/21 07:30 10/16/21 11:16 Insulin Lispro 100 Unit/Ml SUB-Q Not Given ACHS [facility] Protocol Metoclopramide HCl 10 mg 10/10/21 23:42 Metoclopramide 10 Mg/2 Ml Inj IV Q6H PRN Nausea And Vomiting Metoprolol Tartrate 50 mg 10/16/21 10:00 10/16/21 10:25 Metoprolol Tartrate 50 Mg Tab PO Not Given Q6H [facility] Morphine Sulfate 2 mg 10/10/21 23:42 10/16/21 01:04 Morphine 2 Mg/1 Ml Inj IV 2 mg Q4H PRN Administration Pain, Moderate (4-6) Ondansetron HCl 4 mg 10/10/21 23:42 Ondansetron 4 Mg/2 Ml Inj IV Q8H PRN Nausea And Vomiting Oxycodone/Acetaminophen 1 tab 10/10/21 23:42 10/15/21 21:50 Oxycodone /Acetaminophen 5-325mg Tab PO 1 tab Q6H PRN Administration Pain, Moderate (4-6) Sodium Chloride 10 ml 10/11/21 10:00 10/16/21 09:02 Sodium Chloride 0.9% 10 Ml Flush Syringe IV 10 ml BID IMANI Administration Sodium Chloride 10 ml 10/10/21 23:42 Sodium Chloride 0.9% 10 Ml Flush Syringe IV PRN PRN LINE FLUSH
[2021-10-17] MEDS: METOPROLOL TARTRATE 50 MG TAB PO SCH (04:44)
[2021-10-17] MEDS: DIGOXIN 0.5 MG/2 ML INJ IV SCH (05:18)
[2021-10-17] MEDS: FUROSEMIDE 40 MG/4 ML INJ IV SCH (05:18)
[2021-10-17] MEDS: oxyCODONE /ACETAMINOPHEN 5-325MG TAB PO PRN (05:19)
[2021-10-17 05:45] LABS: BUN/Creatinine Ratio 22; Blood Urea Nitrogen 28 mg/dL (9-20); Calcium 8.8 mg/dL (8.4-10.2); Hemolysis Index 20
[2021-10-17] MEDS: glipiZIDE XL 5 MG TAB PO SCH (09:25)
[2021-10-17] MEDS: APIXABAN 5 MG TAB PO SCH (09:25)
[2021-10-17] MEDS: INSULIN LISPRO 100 UNIT/ML SUB-Q SCH ×2 (09:26→12:07)
[2021-10-17] MEDS: ASPIRIN EC 81 MG TAB PO SCH (09:26)
[2021-10-17 09:34] VITALS: BP 129/75
--- NOTE | 2021-10-17 09:56 | Progress Note ---
Assessment and Plan Patient is 61 y/o male, who previously follows with Dr. Moreau of our group, with a pmhx of Afib/flutter s/p cardioversion 06/17/2020 HTN, HFrEF, DM, Obesity, and GERD who presented to the ED for complaint of SOB that has been going on for the last month or 2 however he reports that it has been significantly worse in the last 2 to 3 days. Acute on chronic HFrEF RICHIE NSTEMI suspect type II A. fib/atrial flutter Hypertension Diabetes Obesity Asthma Echo 10/10/2021-EF 20 to 25%. Mild concentric LVH. Right ventricle is dilated. Right ventricular systolic function is normal. Mild mitral regurgitation. No pericardial effusion Echo 12/30/2020-EF 35 to 40%, moderate left ventricular hypertrophy, right ventricular systolic function is mildly reduced, left atrium not well visualized, right atrium is mildly dilated, saline bubble study demonstrates no PFO. Lexiscan MPI stress 08/2018- demonstrates moderately to severe post stress left ventricular systolic dysfunction with no significant evidence for myocardial ischemia or necrosis Plan: Anticoagulated on Eliquis Continue aspirin, Lipitor, Convert to metoprolol 100 mg p.o. twice daily Initiate digoxin 0.125 mg p.o. daily and spironolactone 25 mg p.o. daily Patient's edema and respiratory status significantly improved. Will convert to Lasix 40 mg p.o. twice daily No KARLI or ARB at this time due to elevated creatinine and attempting for rate control at. Will defer KARLI or ARB due to primary foot tender Patient refused Lexiscan stress test. Will plan for outpatient ischemic eval Plan of care discussed with patient's who verbalized understanding and agreement Cardiac status otherwise stable for discharge Patient will be scheduled for outpatient BMP 10/20/2021 at 10:30am in our [place] location Patient has a follow-up appointment with Dr. Doyle, [facility], on 10/23/2021 @ 11:30am in our [place] location. Phone #[phone] Patient seen in conjunction with Dr. Doyle who agrees with this plan of care - Patient Problems (1) Atrial fibrillation Current Visit: Yes Status: Chronic Qualifiers: Atrial fibrillation type: paroxysmal Qualified Code(s): I48.0 - Paroxysmal atrial fibrillation (2) Hyperlipidemia Current Visit: Yes Status: Chronic Qualifiers: Hyperlipidemia type: mixed hyperlipidemia Qualified Code(s): E78.2 - Mixed hyperlipidemia (3) Hypertension Current Visit: Yes Status: Chronic Qualifiers: Hypertension type: primary hypertension Qualified Code(s): I10 - Essential (primary) hypertension (4) T2DM (type 2 diabetes mellitus) Current Visit: Yes Status: Chronic 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 Patient reports continued improvement in respiratory status and good urine output. A. fib rate 70s to 80s on monitor Objective Vital Signs Temp Pulse Pulse Resp BP Pulse Ox 10/17/21 09:23 98.0 F 82 18 129/75 93 10/17/21 06:00 94 H 18 97 10/17/21 03:24 98.8 F 75 16 164/89 96 10/16/21 23:58 94 H 124/89 10/16/21 23:56 98.6 F 85 20 141/82 95 10/16/21 22:39 90 10/16/21 21:33 95 H 143/85 10/16/21 20:02 98.8 F 94 H 20 124/89 98 10/16/21 16:05 98.0 F 85 18 116/88 95 10/16/21 11:56 95 H 120/54 98 10/16/21 11:54 88 120/54 10/16/21 10:51 103 H 20 97 - Physical Examination General: No Apparent Distress HEENT: Positive: EOMI, Normocephaly, Mucus Membranes Moist Neck: Positive: neck supple, trachea midline, JVD/HJR Cardiac: Positive: irregularly irregular Lungs: Positive: Decreased Breath Sounds Neuro: Positive: Grossly Intact Abdomen: Positive: Soft, Active Bowel Sounds. Negative: Tender Skin: Negative: Rash, Suspicious Lesions, Ulceration Musculoskeletal: Normal Range of Motion Extremities: Present: edema - Labs and Meds Comprehensive Metabolic Panel 10/17/21 Range/Units 04:31 Sodium 140 (137-145) mmol/L Potassium 4.0 (3.6-5.0) mmol/L Chloride 99.7 (98-107) mmol/L Carbon Dioxide 29 (22-30) mmol/L BUN 28 H (9-20) mg/dL Creatinine 1.3 (0.8-1.3) mg/dL Glucose 134 H (75-100) mg/dL Calcium 8.8 (8.4-10.2) mg/dL - Imaging and Cardiology EKG: report reviewed (Sinus tachycardia) Echo: report reviewed - Telemetry EKG Rhythm: Atrial Fibrillation - EKG Supraventricular dysrhythmia: atrial fibrillation Ventricular dysrhythmias: ventricular premature com, non-sustained ventricular (9-beat 10/13/21 PM) Repolarization changes or abnormalities: nonspecific abnormality, ST segment, and/or T wave
[2021-10-17] MEDS ORDERED: METOPROLOL TARTRATE 50 MG TAB PO SCH (10:00)
[2021-10-17] MEDS ORDERED: SPIRONOLACTONE 25 MG TAB PO SCH (10:00)
--- NOTE | 2021-10-17 11:17 | Discharge Summary ---
Providers - Providers Date of Admission: 10/10/21 23:42 Date of discharge: 10/17/21 Attending physician: GARRETT STODDARD MD 10/10/21 23:42 Consult to Physician [CONS] Routine Comment: Consulting Provider: JEANNETTE DYOLE Physician Instructions: Reason For Exam: CHF exacerbation Primary care physician: ASPHALT PATCHER Hospitalization Reason for admission: CHF exacerbation Condition: Fair Hospital course: Patient is a 61-year-old male with history of atrial fibrillation, systolic heart failure, hypertension and type 2 diabetes who presented with increased shortness of breath. He was admitted for CHF exacerbation. Cardiology was consulted. Echocardiogram showed ejection fraction of 20 to 25%. Patient also found to have an RICHIE likely secondary to cardiorenal syndrome which improved with diuresis. Initially patient required supplemental oxygen and was eventually weaned to room air. The patient's symptoms improved with medications. Once stable, he was discharged home with outpatient cardiology follow-up. Disposition: 01 HOME / SELF CARE / HOMELESS Final Discharge Diagnosis (Prints w/discharge instructions): Acute hypoxic respiratory failure. Acute on chronic systolic heart failure. Acute kidney injury secondary to cardiorenal syndrome. Paroxysmal atrial fibrillation. Insulin-dependent type 2 diabetes with hyperglycemia. Hyperlipidemia. Hypertension. Mild protein caloric malnutrition. Morbid obesity Time spent for discharge: 30 minutes Core Measure Documentation - Palliative Care Palliative Care/ Comfort Measures: Not Applicable - Core Measures Any of the following diagnoses?: heart failure - Heart Failure Discharge Requirements KARLI/ARB for LVSD if EF <40%: No Reason for no KARLI/ARB: Hypotension Beta wood at discharge: Yes Exam - Physical Exam Narrative exam: GENERAL: Obese male. Sitting on the side of the bed in no acute distress. HEENT: Normocephalic. Atraumatic. NECK: Supple. CHEST/LUNGS: CTAB on room air HEART/CARDIOVASCULAR: RRR. No murmur, rubs or gallops appreciated. ABDOMEN: +BS. NT/ND. SKIN: No rashes noted. NEURO: No focal motor deficit. Follows all command. MUSCULOSKELETAL: No joint effusion EXTREMITIES: No cyanosis, clubbing. 1+ lower extremity edema. PSYCH: Cooperative. - Constitutional Vitals: Temp Pulse Resp BP Pulse Ox 98.0 F 77 18 129/75 93 10/17/21 09:23 10/17/21 10:00 10/17/21 09:23 10/17/21 09:23 10/17/21 09:23 Plan Activity: advance as tolerated Diet: low salt Care Plan Goals: Please restrict your fluid intake to less than 1.5 L daily (this includes foods with fluid, ice and beverages). Also try to consume a low-sodium diet to prevent fluid retention. Please take all medications as prescribed to you. You will no longer be taking losartan. You are scheduled for outpatient BMP 10/20/2021 at 10:30am at [facility] heart specialists [place] location ([facility] , [place] [address]) Patient has a follow-up appointment with Dr. Doyle, [facility] display specialist, on 10/23/2021 @ 11:30am in our [place] location. Phone #[phone] Follow up with: PRIMARY CARE, [Primary Care Provider] - 3-5 Days Prescriptions: RX: AtorvaSTATin [Lipitor] 40 mg PO QHS 30 Days #30 tab RX: Spironolactone [Aldactone] 25 mg PO QDAY 30 Days #30 tablet RX: Digoxin [Lanoxin] 0.125 mg PO DAILY@1700 30 Days #30 tablet RX: Furosemide [Lasix TAB] 40 mg PO 0600,1800 30 Days #60 tablet RX: Metoprolol [Lopressor TAB] 100 mg PO BID 30 Days #60 tablet
[2021-10-17] MEDS ORDERED: FUROSEMIDE 40 MG/4 ML INJ IV NR (13:00)
[2021-10-17] MEDS ORDERED: DIGOXIN 0.125 MG TAB PO SCH (17:00)
[2021-10-18] MEDS ORDERED: FUROSEMIDE 40 MG TAB PO SCH (06:00)
== END 2021-10-17 14:15 | disposition home or self-care (01) | DRG 280 ==
LOC: ED 16:13 → 4A 23:42
PROVIDERS: ADMIT Internal Medicine; ATTEND Student in an Organized Health Care Education/Training Program
DX: I13.0 Hypertensive heart and chronic kidney disease with heart failure and stage 1 through stage 4 chronic kidney disease, or unspecified chronic kidney disease (principal); I50.21 Acute systolic (congestive) heart failure; I21.4 Non-ST elevation (NSTEMI) myocardial infarction; J96.01 Acute respiratory failure with hypoxia; Z68.41 Body mass index [BMI] 40.0-44.9, adult; E44.1 Mild protein-calorie malnutrition; N17.9 Acute kidney failure, unspecified; I42.9 Cardiomyopathy, unspecified; K21.9 Gastro-esophageal reflux disease without esophagitis; I25.10 Atherosclerotic heart disease of native coronary artery without angina pectoris; I48.0 Paroxysmal atrial fibrillation; E11.65 Type 2 diabetes mellitus with hyperglycemia; E66.01 Morbid (severe) obesity due to excess calories; J45.909 Unspecified asthma, uncomplicated; E78.2 Mixed hyperlipidemia; Z83.3 Family history of diabetes mellitus; Z82.49 Family history of ischemic heart disease and other diseases of the circulatory system; E11.22 Type 2 diabetes mellitus with diabetic chronic kidney disease; N18.9 Chronic kidney disease, unspecified
CPT/HCPCS: 36415; 71045; 80048; 80053; 80061; 80307; 81001; 82140; 82550; 82553; 82962; 83690; 83735; 83880; 84484; 85007; 85025; 85610; 85730; 87040; 87086; 93005; 93306; G0378; J3490; Q9967; C8929; J0692; J1160; J1815; J1940; J2270

== ENCOUNTER 2021-12-29 10:27 | Inpatient (IN) | payer OTHER ==
[2021-12-29] MEDS ORDERED: FUROSEMIDE 40 MG/4 ML INJ IV ONE ×2 (11:04→22:18)
--- NOTE | 2021-12-29 11:08 | Event Note ---
ED Screening Note ED Screening Note: 61 Y/O MALE C/O OF PAIN TO CHEST WTIH SWELLIGN TO LEGS AND PROGRESSIVELY WORSEN SOB. EXAM CRACKLES TO LEFT BASE AND DYSPNEA LABORED RESPIRATION RECOMMEND PT BE BROUGHT BACK This initial assessment/diagnostic orders/clinical plan/treatment(s) is/are subject to change based on patients health status, clinical progression and re- assessment by fellow clinical providers in the ED. Further treatment and workup at subsequent clinical providers discretion. Patient/guardian urged not to elope from the ED as their condition may be serious if not clinically assessed and managed. Initial orders include: CXR LABS EKG LASIX
[2021-12-29 11:49] LABS: Basophils # (Auto) 0.1 K/mm3 (0.0-0.1); Basophils % (Auto) 1.2 % (0.0-1.8); Eosinophils # (Auto) 0.5 K/mm3 (0.0-0.4); Eosinophils % (Auto) 6.8 % (0.0-4.3); Hematocrit 36.6 % (35.5-45.6); Hemoglobin 11.5 gm/dl (11.8-15.2); Lymphocytes # (Auto) 1.8 K/mm3 (1.2-5.4); Lymphocytes % (Auto) 24.2 % (13.4-35.0); Mean Corpuscular HGB Conc 31 % (32-34); Mean Corpuscular Volume 92 fl (84-94); Monocytes # (Auto) 0.9 K/mm3 (0.0-0.8); Monocytes % (Auto) 12.5 % (0.0-7.3); Platelet Count 267 K/mm3 (140-440); Red Blood Count 3.97 M/mm3 (3.65-5.03)
--- NOTE | 2021-12-29 11:52 | XRay Report ---
CHEST 2 VIEWS INDICATION / CLINICAL INFORMATION: Chest Pain. COMPARISON: 10/10/2021 FINDINGS: SUPPORT DEVICES: None. HEART / MEDIASTINUM: Stable moderate cardiomegaly. LUNGS / PLEURA: Mild pulmonary vascular congestion. ADDITIONAL FINDINGS: No significant additional findings. IMPRESSION: 1. Findings likely indicating CHF as described. Signer Name: José Whitfield MD Signed: 12/29/2021 11:47 AM Workstation Name: [id number]
[2021-12-29 12:00] LABS: INR 1.29 (0.87-1.13)
[2021-12-29 12:14] LABS: Alanine Aminotransferase 14 units/L (7-56); Albumin 3.8 g/dL (3.9-5); BUN/Creatinine Ratio 16; Blood Urea Nitrogen 16 mg/dL (9-20); Calcium 9.3 mg/dL (8.4-10.2); Hemolysis Index 0
--- NOTE | 2021-12-29 13:44 | Electrocardiograph Report ---
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
--- NOTE | 2021-12-29 22:18 | Emergency Department Report ---
ED Shortness of Breath HPI - General Chief Complaint: Dyspnea/Respdistress Stated Complaint: REFERRAL/CONGESTIVE HEART FAILURE Source: patient Mode of arrival: Ambulatory Limitations: No Limitations - History of Present Illness Initial Comments: Patient is a 62-year-old male presenting to ED with complaint of progressively worsening shortness of breath and palpitations over the past several days with increased swelling in his legs. He has history of CHF and takes Lasix 40 mg daily. He also has history of A. fib and is on Eliquis and Cardizem. States digoxin was added to his regimen back in October and has not been helping. - Related Data Home Medications Medication Instructions Recorded Confirmed Last Taken Albuterol Mdi (or & Nicu Only) 2 puff INHALATION QID 10/11/21 10/11/21 Unknown [ProAir HFA Inhaler] Fluticasone Propion/Salmeterol 1 puff INHALATION BID 10/11/21 10/11/21 Unknown [Fluticasone-Salmeterol 250-50] Metformin HCl [metFORMIN] 1,000 mg PO BID 10/11/21 10/11/21 Unknown Semaglutide [Rybelsus] 3 mg PO BID 10/11/21 10/11/21 Unknown glipiZIDE XL [Glucotrol Xl] 10 mg PO BID 10/11/21 10/11/21 Unknown Previous Rx's Medication Instructions Recorded Last Taken Type Apixaban [Eliquis] 5 mg PO Q12HR #60 tablet 01/05/21 Unknown Rx Aspirin EC [Halfprin EC] 81 mg PO QDAY #30 tablet 01/05/21 Unknown Rx AtorvaSTATin [Lipitor] 40 mg PO QHS 30 Days #30 tab 10/17/21 Unknown Rx Digoxin [Lanoxin] 0.125 mg PO DAILY@1700 30 Days #30 10/17/21 Unknown Rx tablet Furosemide [Lasix TAB] 40 mg PO 0600,1800 30 Days #60 10/17/21 Unknown Rx tablet Metoprolol [Lopressor TAB] 100 mg PO BID 30 Days #60 tablet 10/17/21 Unknown Rx Spironolactone [Aldactone] 25 mg PO QDAY 30 Days #30 tablet 10/17/21 Unknown Rx Allergies Allergy/AdvReac Type Severity Reaction Status Date / Time No Known Allergies Allergy Verified 10/11/21 14:47 ED Review of Systems ROS: Stated complaint: DR REFERRAL/CONGESTIVE HEART FAILURE Other details as noted in HPI Constitutional: denies: chills, fever Respiratory: shortness of breath, SOB with exertion Cardiovascular: palpitations, dyspnea on exertion, edema. denies: chest pain Gastrointestinal: denies: abdominal pain, nausea, diarrhea Musculoskeletal: denies: back pain, joint swelling, arthralgia Skin: denies: rash, lesions Neurological: denies: headache, weakness, paresthesias Psychiatric: denies: anxiety, depression ED Past Medical Hx - Past Medical History Hx Hypertension: Yes Hx Heart Attack/AMI: No (NICM EF 35-40%) Hx Congestive Heart Failure: Yes Hx Diabetes: Yes Hx GERD: Yes Hx Liver Disease: No Hx Renal Disease: No Hx Asthma: Yes Additional medical history: CAD. Atrial fibrillation - Surgical History Hx Coronary Stent: No Hx Pacemaker: No Hx Internal Defibrillator: No - Social History Smoking Status: Never Smoker - Medications Home Medications: Home Medications Medication Instructions Recorded Confirmed Last Taken Type Apixaban [Eliquis] 5 mg PO Q12HR #60 tablet 01/05/21 10/11/21 Unknown Rx Aspirin EC [Halfprin EC] 81 mg PO QDAY #30 tablet 01/05/21 10/11/21 Unknown Rx Albuterol Mdi (or & Nicu Only) 2 puff INHALATION QID 10/11/21 10/11/21 Unknown History [ProAir HFA Inhaler] Fluticasone Propion/Salmeterol 1 puff INHALATION BID 10/11/21 10/11/21 Unknown History [Fluticasone-Salmeterol 250-50] Metformin HCl [metFORMIN] 1,000 mg PO BID 10/11/21 10/11/21 Unknown History Semaglutide [Rybelsus] 3 mg PO BID 10/11/21 10/11/21 Unknown History glipiZIDE XL [Glucotrol Xl] 10 mg PO BID 10/11/21 10/11/21 Unknown History AtorvaSTATin [Lipitor] 40 mg PO QHS 30 Days #30 tab 10/17/21 Unknown Rx Digoxin [Lanoxin] 0.125 mg PO DAILY@1700 30 Days #30 10/17/21 Unknown Rx tablet Furosemide [Lasix TAB] 40 mg PO 0600,1800 30 Days #60 10/17/21 Unknown Rx tablet Metoprolol [Lopressor TAB] 100 mg PO BID 30 Days #60 tablet 10/17/21 Unknown Rx Spironolactone [Aldactone] 25 mg PO QDAY 30 Days #30 tablet 10/17/21 Unknown Rx ED Physical Exam - General Limitations: No Limitations General appearance: alert, in no apparent distress, obese - Head Head exam: Present: atraumatic, normocephalic - Respiratory Respiratory exam: Present: respiratory distress, decreased breath sounds (Decreased breath sounds at bases) - Cardiovascular Cardiovascular Exam: Present: regular rate, normal rhythm, normal heart sounds - GI/Abdominal GI/Abdominal exam: Present: soft. Absent: distended, tenderness - Rectal Rectal exam: Present: deferred - Extremities Exam Extremities exam: Present: pedal edema - Neurological Exam Neurological exam: Present: alert, oriented X3 - Psychiatric Psychiatric exam: Present: normal affect, normal mood - Skin Skin exam: Present: warm, dry, intact, normal color ED Course Vital Signs 12/29/21 12/29/21 12/29/21 10:55 22:15 23:40 Temperature 97.3 F L Pulse Rate 96 H 93 H 115 H Respiratory 18 30 H 20 Rate Blood Pressure 157/101 Blood Pressure 150/102 145/90 [Left] O2 Sat by Pulse 94 100 98 Oximetry ED Medical Decision Making - Lab Data Result diagrams: 12/29/21 11:34 12/29/21 11:34 - Medical Decision Making Chest x-ray shows cardiomegaly with increased pulmonary vascular congestion. Patient given IV Lasix. Labs reviewed. Serum potassium 5.2. BNP is 4380. He is in A. fib with heart rate in the high 90s to low 100s. Suspect likely acute on chronic CHF. Will admit to hospitalist for diuresis and cardiology consult. Critical care attestation.: If time is entered above; I have spent that time in minutes in the direct care of this critically ill patient, excluding procedure time. ED Disposition Clinical Impression: Acute on chronic diastolic CHF (congestive heart failure), Chronic atrial fibrillation with rapid ventricular response Disposition: ADMITTED INPATIENT Is pt being admited?: Yes Condition: Stable
[2021-12-29] MEDS ORDERED: ONDANSETRON 4 MG/2 ML INJ IV PRN (23:47)
[2021-12-29] MEDS ORDERED: ACETAMINOPHEN 325 MG TAB PO PRN (23:47)
[2021-12-29] MEDS ORDERED: MAGNESIUM HYDROXIDE (MOM) ORAL LIQD UDC PO PRN (23:47)
[2021-12-29] MEDS ORDERED: NITROGLYCERIN 0.4 MG TAB SUBL SL PRN (23:47)
[2021-12-29] MEDS ORDERED: DEXTROSE 50% IN WATER (25GM) 50 ML SYRINGE IV PRN (23:47)
[2021-12-29] MEDS ORDERED: MORPHINE 4 MG/1 ML INJ IV PRN (23:47)
[2021-12-29] MEDS ORDERED: MORPHINE 2 MG/1 ML INJ IV PRN ×2 (23:47)
--- NOTE | 2021-12-30 00:02 | History and Physical Report ---
History of Present Illness Date of examination: 12/29/21 Date of admission: 12/29/2021 Chief complaint: Shortness of Breath History of present illness: 62-year-old -[place] male with known history of hypertension, coronary artery disease, diabetes mellitus and atrial fibrillation presenting to the emergency room today complaining of shortness of breath palpitations which has been ongoing for the past few days. Patient also indicates he has been having progressive swelling of his lower extremities. He denies any chest pain, no nausea vomiting and no abdominal pain. Denies any fever or chills. No headache or dizziness and no diaphoresis. Patient has known history of atrial fibrillation and is being on Cardizem and Eliquis for anticoagulation. He also indicates that digoxin was added to his medication regimen sometime in October 2021. Upon arrival in the emergency room patient was in A. fib with heart rate of about 102. Work-up in the emergency room today, lab reveals a BNP of 4380 's chest x-ray indicates CHF. Past History Past Medical History: CAD, diabetes, GERD, heart failure, hypertension Past Surgical History: No surgical history Social history: no significant social history Family history: no significant family history Medications and Allergies Allergies Allergy/AdvReac Type Severity Reaction Status Date / Time No Known Allergies Allergy Verified 10/11/21 14:47 Home Medications Medication Instructions Recorded Confirmed Last Taken Type Apixaban [Eliquis] 5 mg PO Q12HR #60 tablet 01/05/21 12/30/21 Unknown Rx Aspirin EC [Halfprin EC] 81 mg PO QDAY #30 tablet 01/05/21 12/30/21 Unknown Rx Metformin HCl [metFORMIN] 1,000 mg PO BID 10/11/21 12/30/21 Unknown History glipiZIDE XL [Glucotrol Xl] 10 mg PO BID 10/11/21 12/30/21 Unknown History AtorvaSTATin [Lipitor] 40 mg PO QHS 30 Days #30 tab 10/17/21 12/30/21 Unknown Rx Digoxin [Lanoxin] 0.125 mg PO DAILY@1700 30 Days #30 10/17/21 12/30/21 Unknown Rx tablet Spironolactone [Aldactone] 25 mg PO QDAY 30 Days #30 tablet 10/17/21 12/30/21 Unknown Rx Furosemide [Lasix TAB] 40 mg PO DAILY 12/30/21 12/30/21 Unknown History Ibuprofen [Motrin] 600 mg PO TID PRN 12/30/21 12/30/21 Unknown History Metoprolol [Lopressor] 100 mg PO DAILY 12/30/21 12/30/21 Unknown History Review of Systems Constitutional: no fever, no chills Ears, nose, mouth and throat: no nasal congestion, no sore throat Cardiovascular: no chest pain, no palpitations Respiratory: shortness of breath, no cough Gastrointestinal: no abdominal pain, no nausea, no vomiting, no diarrhea Genitourinary Male: no dysuria, no hematuria, no flank pain, no nocturia Musculoskeletal: no neck pain, no low back pain Integumentary: no rash, no pruritis Neurological: no headaches, no confusion Psychiatric: no anxiety, no depression Endocrine: no polyphagia, no polydipsia, no polyuria, no nocturia Exam - Constitutional Vitals: Temp Pulse Resp BP Pulse Ox 97.3 F L 115 H 20 145/90 98 12/29/21 10:55 12/29/21 23:40 12/29/21 23:40 12/29/21 23:40 12/29/21 23:40 General appearance: Present: no acute distress, well-nourished, obese - EENT Eyes: Present: PERRL, EOM intact. Absent: scleral icterus ENT: hearing intact, clear oral mucosa, dentition normal - Neck Neck: Present: supple, normal ROM - Respiratory Respiratory effort: normal Respiratory: bilateral: rales - Cardiovascular Rhythm: irregularly irregular Heart Sounds: Present: S1 & S2. Absent: gallop, systolic murmur, diastolic murmur, rub - Extremities Extremities: no ischemia, pulses intact, pulses symmetrical, normal temperature, normal color, Full ROM Extremity abnormal: edema (2+ bilateral lower extremity edema) Peripheral Pulses: within normal limits - Abdominal General gastrointestinal: Present: soft, non-tender, non-distended, normal bowel sounds. Absent: mass - Integumentary Integumentary: Present: clear, warm, dry, normal turgor. Absent: rash - Musculoskeletal Musculoskeletal: strength equal bilaterally - Psychiatric Psychiatric: appropriate mood/affect, intact judgment & insight, memory intact, cooperative - Neurologic Neurologic: CNII-XII intact, no focal deficits, moves all extremities HEART Score - HEART Score Troponin: Troponin T 0.023 ng/mL (0.00-0.029) 12/29/21 15:32 Results - Labs CBC & Chem 7: 12/29/21 11:34 12/30/21 05:36 Labs: Abnormal lab results 12/29/21 12/29/21 12/29/21 Range/Units 11:34 11:34 11:34 Hgb 11.5 L (11.8-15.2) gm/dl MCHC 31 L (32-34) % RDW 16.0 H (13.2-15.2) % [place] % (Auto) 12.5 H (0.0-7.3) % Eos % (Auto) 6.8 H (0.0-4.3) % [place] # (Auto) 0.9 H (0.0-0.8) K/mm3 Eos # (Auto) 0.5 H (0.0-0.4) K/mm3 PT 17.6 H (12.2-14.9) Sec. INR 1.29 H (0.87-1.13) Potassium 5.2 H (3.6-5.0) mmol/L Glucose 109 H (75-100) mg/dL NT-Pro-B Natriuret Pep 4380 H (0-900) pg/mL Albumin 3.8 L (3.9-5) g/dL Assessment and Plan Assessment: 1.CHf exacerbation - EF 20-25% in 09/2021 2.Atrial Fibrillation 3.D/[place] 4.Hypertension Plan: 1.Admitted and placed on diuretics. 2.Monitor input and output. Monitor daily weight 3.Cardiology evaluation and recommendation 4.Placed on sliding scale. Monitor accuchecks. DVT Prophylaxis:Patient on Eliquis Code Status: Full Code
[2021-12-30] MEDS: FUROSEMIDE 40 MG/4 ML INJ IV SCH ×2 (05:39→17:01)
[2021-12-30] MEDS ORDERED: HEPARIN 5,000 UNIT/1 ML VIAL SUB-Q SCH (06:00)
[2021-12-30 07:10] LABS: BUN/Creatinine Ratio 20; Blood Urea Nitrogen 18 mg/dL (9-20); Calcium 9.1 mg/dL (8.4-10.2); Hemolysis Index 14
[2021-12-30] MEDS ORDERED: METOPROLOL TARTRATE 100 MG TAB PO SCH (08:00)
[2021-12-30] MEDS: INSULIN LISPRO 100 UNIT/ML SUB-Q SCH ×4 (09:06→21:17)
[2021-12-30] MEDS: APIXABAN 5 MG TAB PO SCH ×2 (09:41→21:17)
[2021-12-30] MEDS: SPIRONOLACTONE 25 MG TAB PO SCH (09:41)
[2021-12-30] MEDS ORDERED: ASPIRIN EC 81 MG TAB PO SCH (10:00)
--- NOTE | 2021-12-30 10:56 | Progress Note ---
Assessment and Plan Assessment and plan: #Acute hypoxic respiratory failure - etiology: Likely secondary to CHF exacerbation - baseline oxygen requirements: Room air - supplemental oxygen: 2 L nasal cannula - Continue protocol: continue pulse oximetry, wean oxygen as tolerated - continue metoprolol and spironolactone - Cardiology following, assistance appreciated #Acute on chronic systolic heart failure -TTE (10/12/2021) revealing EF 20 to 25% - Continue CHF exacerbation protocol: Telemetry, Strict I/O, monitor urine output every shift, daily weights, afterload reduction, low-sodium diet, and f luid restriction of approximately 1.5 mL/day, IV Lasix 40 mg twice daily - Supplemental oxygen: 2 L nasal cannula - ProBNP on admission: 4380 - Cardiology consulted; appreciate recs #Paroxysmal atrial fibrillation Continue Eliquis 5 mg every 12 hours, digoxin and metoprolol - telemetry #Non-insulin dependent type II diabetes mellitus with hyperglycemiastable - hemoglobin A1c: Unknown - home regimen: Glipizide 10 mg twice daily & metformin 1000 mg twice daily - continue SSI + accuchecks - blood glucose goal 140-180 while inpatient - continue to monitor #Hyperlipidemia #Hypertension - continue atorvastatin - SBP goal <160 and DBP goal <90 while inpatient - continue to monitor #Morbid obesity #Weight loss counseling #Exercise counseling - BMI 44 - Counseled patient on the importance of weight loss, incorporating exercise, and dietary changes (lean meats, fresh fruits and vegetables, and water intake). Patient expresses understanding. - Time: +15 min #Advanced care planning -Disease education conducted, care plan discussed, diagnoses discussed, prognosis discussed, and patient acknowledges understanding with care plan -Time: +30 min History Interval history: No acute events overnight. Patient reports improvement in shortness of breath since admission. While at home noticed that his baseline dyspnea on exertion w orsened and he was unable to sleep during the night due to difficulty breathing. We discussed current care plan and he has no complaints at this time. Hospitalist Physical - Physical exam Narrative exam: GENERAL: Well-developed well-nourished. In no acute distress. HEENT: Nasal cannula in place at 2 L/min NECK: Supple. CHEST/LUNGS: Decreased breath sound bilaterally on supplemental oxygen. HEART/CARDIOVASCULAR: RRR. No murmur, rubs or gallops appreciated. ABDOMEN: +BS. NT/ND. SKIN: No rashes noted. NEURO: No focal motor deficit. Follows all commands. MUSCULOSKELETAL: No joint effusion EXTREMITIES: No cyanosis or clubbing. 1+ edema to the knees. PSYCH: Cooperative. - Constitutional Vitals: Temp Pulse Resp BP Pulse Ox 97.9 F 88 18 142/87 97 12/30/21 08:00 12/30/21 10:00 12/30/21 08:00 12/30/21 08:00 12/30/21 10:00 General appearance: Present: no acute distress, well-nourished, obese HEART Score - HEART Score Troponin: Troponin T 0.023 ng/mL (0.00-0.029) 12/29/21 15:32 Results - Labs CBC & Chem 7: 12/29/21 11:34 12/30/21 05:36 Labs: Laboratory Last Values WBC 7.5 K/mm3 (4.5-11.0) 12/29/21 11:34 RBC 3.97 M/mm3 (3.65-5.03) 12/29/21 11:34 Hgb 11.5 gm/dl (11.8-15.2) L 12/29/21 11:34 Hct 36.6 % (35.5-45.6) 12/29/21 11:34 MCV 92 fl (84-94) 12/29/21 11:34 MCH 29 pg (28-32) 12/29/21 11:34 MCHC 31 % (32-34) L 12/29/21 11:34 RDW 16.0 % (13.2-15.2) H 12/29/21 11:34 Plt Count 267 K/mm3 (140-440) 12/29/21 11:34 Lymph % (Auto) 24.2 % (13.4-35.0) 12/29/21 11:34 [place] % (Auto) 12.5 % (0.0-7.3) H 12/29/21 11:34 Eos % (Auto) 6.8 % (0.0-4.3) H 12/29/21 11:34 Baso % (Auto) 1.2 % (0.0-1.8) 12/29/21 11:34 Lymph # (Auto) 1.8 K/mm3 (1.2-5.4) 12/29/21 11:34 [place] # (Auto) 0.9 K/mm3 (0.0-0.8) H 12/29/21 11:34 Eos # (Auto) 0.5 K/mm3 (0.0-0.4) H 12/29/21 11:34 Baso # (Auto) 0.1 K/mm3 (0.0-0.1) 12/29/21 11:34 Seg Neutrophils % 55.3 % (40.0-70.0) 12/29/21 11:34 Seg Neutrophils # 4.1 K/mm3 (1.8-7.7) 12/29/21 11:34 PT 17.6 Sec. (12.2-14.9) H 12/29/21 11:34 INR 1.29 (0.87-1.13) H 12/29/21 11:34 Sodium 141 mmol/L (137-145) 12/30/21 05:36 Potassium 4.7 mmol/L (3.6-5.0) 12/30/21 05:36 Chloride 105.4 mmol/L (98-107) 12/30/21 05:36 Carbon Dioxide 26 mmol/L (22-30) 12/30/21 05:36 Anion Gap 14 mmol/L 12/30/21 05:36 BUN 18 mg/dL (9-20) 12/30/21 05:36 Creatinine 0.9 mg/dL (0.8-1.3) 12/30/21 05:36 Estimated GFR > 60 ml/min 12/30/21 05:36 BUN/Creatinine Ratio 20 % 12/30/21 05:36 Glucose 111 mg/dL (75-100) H 12/30/21 05:36 Calcium 9.1 mg/dL (8.4-10.2) 12/30/21 05:36 Total Bilirubin 0.90 mg/dL (0.1-1.2) 12/29/21 11:34 AST 24 units/L (5-40) 12/29/21 11:34 ALT 14 units/L (7-56) 12/29/21 11:34 Alkaline Phosphatase 109 units/L (35-129) 12/29/21 11:34 Troponin T 0.023 ng/mL (0.00-0.029) 12/29/21 15:32 NT-Pro-B Natriuret Pep 4380 pg/mL (0-900) H 12/29/21 11:34 Total Protein 7.8 g/dL (6.3-8.2) 12/29/21 11:34 Albumin 3.8 g/dL (3.9-5) L 12/29/21 11:34 Albumin/Globulin Ratio 1.0 % 12/29/21 11:34 [place]/IV: Voiding Method External Female Catheter Active Medications - Current Medications Current Medications: Generic Name Dose Route Start Last Admin Trade Name Freq PRN Reason Stop Dose Admin Acetaminophen 650 mg 12/29/21 23:47 Acetaminophen 325 Mg Tab PO Q4H PRN Pain MILD(1-3)/Fever >100.5/BERUMEN Apixaban 5 mg 12/30/21 10:00 12/30/21 09:41 Apixaban 5 Mg Tab PO 5 mg Q12HR IMANI Administration Atorvastatin Calcium 20 mg 12/30/21 22:00 Atorvastatin 40 Mg Tab PO QHS IMANI Dextrose 0 ml 12/29/21 23:47 Dextrose 50% In Water (25gm) 50 Ml Syringe IV Q30MIN PRN Hypoglycemia Protocol Digoxin 0.125 mg 12/30/21 17:00 Digoxin 0.125 Mg Tab PO DAILY@1700 [facility] Furosemide 40 mg 12/30/21 06:00 12/30/21 05:39 Furosemide 40 Mg/4 Ml Inj IV 40 mg BID@0600,1800 [facility] Administration Insulin Human Lispro 0 unit 12/30/21 07:30 12/30/21 09:06 Insulin Lispro 100 Unit/Ml SUB-Q Not Given ACHS [facility] Protocol Magnesium Hydroxide 30 ml 12/29/21 23:47 Magnesium Hydroxide (Mom) Oral Liqd Udc PO Q4H PRN Constipation Metoprolol Tartrate 100 mg 12/30/21 08:00 12/30/21 09:41 Metoprolol Tartrate 100 Mg Tab PO 100 mg BID@0800,1700 [facility] Administration Morphine Sulfate 2 mg 12/29/21 23:47 Morphine 2 Mg/1 Ml Inj IV Q4H PRN Pain, Moderate (4-6) Morphine Sulfate 4 mg 12/29/21 23:47 Morphine 4 Mg/1 Ml Inj IV Q4H PRN Pain , Severe (7-10) Morphine Sulfate 2 mg 12/29/21 23:47 Morphine 2 Mg/1 Ml Inj IV Q5MIN PRN Chest Pain unrelieved by NTG Nitroglycerin 0.4 mg 12/29/21 23:47 Nitroglycerin 0.4 Mg Tab Subl SL .Q5MIN PRN Chest Pain Ondansetron HCl 4 mg 12/29/21 23:47 Ondansetron 4 Mg/2 Ml Inj IV Q8H PRN Nausea And Vomiting Sodium Chloride 10 ml 12/30/21 10:00 12/30/21 09:42 Sodium Chloride 0.9% 10 Ml Flush Syringe IV 10 ml BID IMANI Administration Sodium Chloride 10 ml 12/29/21 23:47 12/30/21 05:40 Sodium Chloride 0.9% 10 Ml Flush Syringe IV 10 ml PRN PRN Administration LINE FLUSH Spironolactone 25 mg 12/30/21 10:00 12/30/21 09:41 Spironolactone 25 Mg Tab PO 25 mg QDAY IMANI Administration Nutrition/Malnutrition Assess - Dietary Evaluation Nutrition/Malnutrition Findings: Nutrition Notes Start: 12/30/21 08:07 Freq: Status: Active Protocol: Document 12/30/21 08:07 ARTEM (Rec: 12/30/21 08:16 ARTEM [id number]) Nutrition Notes Need for Assessment generated from: MD Order,Education Initial or Follow up Brief Note Current Diagnosis Coronary Artery Disease, Diabetes,Hypertension Other Pertinent Diagnosis Atrial Fibrilation, GERD, HFrEF. Current Diet Cardiac/Consistent Carbohydrates Diet (since B ). 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 Weight Status Morbidly Obese Subjective/Other Information RD consult for nutrition education assessment. No reports available on Pt's PO intake of meals at the time , will assess at F/U. Pt is on Nasal Cannula, O2 saturation @ 100%, according to Physical Assessment History notes. Pt presents bilateral-LE pitting edema 2+, according to Physical Assessment History notes. Pt still in critical condition , not a candidate for Nutrition Education at the time, will assess feasibility on F/U. Percent of energy/protein needs met: Prescribed Cardiac/Consistent Carbohydrates Diet provides for energy/protein needs (1, 977 Kcal/86 g) during LOS. Nutrition Intervention Follow-Up By: 01/05/22 Additional Comments Nutrition education will be provided at F/U, if feasible. Continue monitoring food tolerance, %PO intake of meals , and BM.
--- NOTE | 2021-12-30 11:30 | Consultation ---
History of Present Illness Consult date: 12/30/21 Requesting physician: SAIGE GERARD Consult reason: congestive heart failure History of present illness: 61-year-old male with history of A. fib with RVR history of systolic heart failure hypertension hyperlipidemia came to dr buchanan office with increased shortness of breath with minimal exertion with PND and orthopnea despite medical therapy with Lasix and rate control medications of metoprolol and digoxin. Patient was sent to the emergency room. Found to have hypoxemia with acute systolic heart failure and A. fib with RVR. Patient was symptoms have improved with the Lasix but patient still has elevated heart rate. Denies any chest pain fever chills or syncope. Past History Past Medical History: atrial fib, CAD, diabetes, GERD, heart failure, hypertension Past Surgical History: No surgical history Social history: no significant social history Family history: no significant family history Medications and Allergies Allergies Allergy/AdvReac Type Severity Reaction Status Date / Time No Known Allergies Allergy Verified 10/11/21 14:47 Home Medications Medication Instructions Recorded Confirmed Last Taken Type Apixaban [Eliquis] 5 mg PO Q12HR #60 tablet 01/05/21 12/30/21 Unknown Rx Aspirin EC [Halfprin EC] 81 mg PO QDAY #30 tablet 01/05/21 12/30/21 Unknown Rx Metformin HCl [metFORMIN] 1,000 mg PO BID 10/11/21 12/30/21 Unknown History glipiZIDE XL [Glucotrol Xl] 10 mg PO BID 10/11/21 12/30/21 Unknown History AtorvaSTATin [Lipitor] 40 mg PO QHS 30 Days #30 tab 10/17/21 12/30/21 Unknown Rx Digoxin [Lanoxin] 0.125 mg PO DAILY@1700 30 Days #30 10/17/21 12/30/21 Unknown Rx tablet Spironolactone [Aldactone] 25 mg PO QDAY 30 Days #30 tablet 10/17/21 12/30/21 Unknown Rx Furosemide [Lasix TAB] 40 mg PO DAILY 12/30/21 12/30/21 Unknown History Ibuprofen [Motrin] 600 mg PO TID PRN 12/30/21 12/30/21 Unknown History Metoprolol [Lopressor] 100 mg PO DAILY 12/30/21 12/30/21 Unknown History Active Meds: Active Medications Acetaminophen (Acetaminophen 325 Mg Tab) 650 mg PO Q4H PRN PRN Reason: Pain MILD(1-3)/Fever >100.5/BERUMEN Apixaban (Apixaban 5 Mg Tab) 5 mg PO Q12HR [facility] Last Admin: 12/30/21 09:41 Dose: 5 mg Atorvastatin Calcium (Atorvastatin 40 Mg Tab) 20 mg PO QHS [facility] Dextrose (Dextrose 50% In Water (25gm) 50 Ml Syringe) 0 ml IV Q30MIN PRN; Protocol PRN Reason: Hypoglycemia Digoxin (Digoxin 0.125 Mg Tab) 0.125 mg PO DAILY@1700 [facility] Furosemide (Furosemide 40 Mg/4 Ml Inj) 40 mg IV BID@0600,1800 [facility] Last Admin: 12/30/21 05:39 Dose: 40 mg Insulin Human Lispro (Insulin Lispro 100 Unit/Ml) 0 unit SUB-Q ACHS [facility]; Protocol Last Admin: 12/30/21 09:06 Dose: Not Given Magnesium Hydroxide (Magnesium Hydroxide (Mom) Oral Liqd Udc) 30 ml PO Q4H PRN PRN Reason: Constipation Metoprolol Tartrate (Metoprolol Tartrate 100 Mg Tab) 100 mg PO TID [facility] Morphine Sulfate (Morphine 2 Mg/1 Ml Inj) 2 mg IV Q4H PRN PRN Reason: Pain, Moderate (4-6) Morphine Sulfate (Morphine 4 Mg/1 Ml Inj) 4 mg IV Q4H PRN PRN Reason: Pain , Severe (7-10) Morphine Sulfate (Morphine 2 Mg/1 Ml Inj) 2 mg IV Q5MIN PRN PRN Reason: Chest Pain unrelieved by NTG Nitroglycerin (Nitroglycerin 0.4 Mg Tab Subl) 0.4 mg SL .Q5MIN PRN PRN Reason: Chest Pain Ondansetron HCl (Ondansetron 4 Mg/2 Ml Inj) 4 mg IV Q8H PRN PRN Reason: Nausea And Vomiting Sodium Chloride (Sodium Chloride 0.9% 10 Ml Flush Syringe) 10 ml IV BID [facility] Last Admin: 12/30/21 09:42 Dose: 10 ml Sodium Chloride (Sodium Chloride 0.9% 10 Ml Flush Syringe) 10 ml IV PRN PRN PRN Reason: LINE FLUSH Last Admin: 12/30/21 05:40 Dose: 10 ml Spironolactone (Spironolactone 25 Mg Tab) 25 mg PO QDAY [facility] Last Admin: 12/30/21 09:41 Dose: 25 mg Review of Systems All systems: negative (As per the HPI) Physical Examination Vital Signs Temp Pulse Resp BP Pulse Ox 97.3 F L 96 H 18 150/102 94 12/29/21 10:55 12/29/21 10:55 12/29/21 10:55 12/29/21 10:55 12/29/21 10:55 General appearance: no acute distress, well-nourished HEENT: Positive: PERRL, Mucus Membranes Moist Neck: Positive: neck supple, trachea midline Cardiac: Positive: Irregularly Regular, S1/S2. Negative: Audible Murmur Lungs: Positive: Decreased Breath Sounds Neuro: Positive: Grossly Intact Abdomen: Positive: Soft, Active Bowel Sounds. Negative: Tender, Distended Male genitourinary: Positive: normal Skin: Positive: Clear Incision: Cardiac Cath Site Musculoskeletal: No Pain, Normal Range of Motion Extremities: Present: normal, +1 Edema Results 12/29/21 11:34 12/30/21 05:36 Cardiac Enzymes 12/29/21 Range/Units 11:34 AST 24 (5-40) units/L Coagulation 12/29/21 Range/Units 11:34 PT 17.6 H (12.2-14.9) Sec. INR 1.29 H (0.87-1.13) CBC 12/29/21 Range/Units 11:34 WBC 7.5 (4.5-11.0) K/mm3 RBC 3.97 (3.65-5.03) M/mm3 Hgb 11.5 L (11.8-15.2) gm/dl Hct 36.6 (35.5-45.6) % Plt Count 267 (140-440) K/mm3 Lymph # (Auto) 1.8 (1.2-5.4) K/mm3 Holmes # (Auto) 0.9 H (0.0-0.8) K/mm3 Eos # (Auto) 0.5 H (0.0-0.4) K/mm3 Baso # (Auto) 0.1 (0.0-0.1) K/mm3 Comprehensive Metabolic Panel 12/29/21 12/30/21 Range/Units 11:34 05:36 Sodium 142 141 (137-145) mmol/L Potassium 5.2 H 4.7 (3.6-5.0) mmol/L Chloride 105.8 105.4 (98-107) mmol/L Carbon Dioxide 26 26 (22-30) mmol/L BUN 16 18 (9-20) mg/dL Creatinine 1.0 0.9 (0.8-1.3) mg/dL Glucose 109 H 111 H (75-100) mg/dL Calcium 9.3 9.1 (8.4-10.2) mg/dL AST 24 (5-40) units/L ALT 14 (7-56) units/L Alkaline Phosphatase 109 (35-129) units/L Total Protein 7.8 (6.3-8.2) g/dL Albumin 3.8 L (3.9-5) g/dL - Imaging and Cardiology Echo: report reviewed (09/2021 severe LV dysfunction EF 20 to 25%) EKG interpretations - Telemetry EKG Rhythm: Atrial Fibrillation (Atrial fibrillation with RVR) Assessment and Plan 61-year-old male with morbid obesity JERMAINE atrial fibrillation with rapid ventricular spots acute systolic heart failure EF 20-25% continue IV Lasix increase Lopressor 1 mg 3 times a day continue digoxin we will hold off KARLI ARB and monitor blood pressure. Monitor lab work. Continue oxygen therapy - Patient Problems (1) Chronic atrial fibrillation with rapid ventricular response Current Visit: Yes Status: Acute (2) Acute on chronic HFrEF (heart failure with reduced ejection fraction) Current Visit: No Status: Acute (3) Acute respiratory failure with hypoxia Current Visit: No Status: Acute (4) Hypertension Current Visit: No Status: Chronic Qualifiers: Hypertension type: primary hypertension Qualified Code(s): I10 - Essential (primary) hypertension (5) Obesity hypoventilation syndrome Current Visit: No Status: Chronic (6) Atrial fibrillation Current Visit: No Status: Chronic Qualifiers: Atrial fibrillation type: persistent (not longstanding) Qualified Code(s): I48.19 - Other persistent atrial fibrillation; I48.1 - Persistent atrial fibrillation (7) Cardiomyopathy Current Visit: No Status: Chronic Qualifiers: Cardiomyopathy type: dilated Qualified Code(s): I42.0 - Dilated cardiomyopathy (8) Diabetes Current Visit: No Status: Chronic Qualifiers: Diabetes mellitus type: type 2 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
[2021-12-30] MEDS: METOPROLOL TARTRATE 100 MG TAB PO SCH ×2 (13:52→21:18)
[2021-12-30] MEDS: DIGOXIN 0.125 MG TAB PO SCH (17:01)
[2021-12-31] MEDS: FUROSEMIDE 40 MG/4 ML INJ IV SCH ×2 (05:44→17:09)
--- NOTE | 2021-12-31 08:13 | Progress Note ---
Assessment and Plan Assessment and plan: #Acute hypoxic respiratory failure-improved - etiology: Likely secondary to CHF exacerbation - baseline oxygen requirements: Room air - now on RA - Continue protocol: continue pulse oximetry, wean oxygen as tolerated - continue metoprolol and spironolactone - Cardiology following, assistance appreciated #Acute on chronic systolic heart failure -TTE (10/12/2021) revealing EF 20 to 25% - Continue CHF exacerbation protocol: Telemetry, Strict I/O, monitor urine output every shift, daily weights, afterload reduction, low-sodium diet, and fluid restriction of approximately 1.5 mL/day, IV Lasix 40 mg twice daily - ProBNP on admission: 4380 - Cardiology consulted; appreciate recs #Paroxysmal atrial fibrillation Continue Eliquis 5 mg every 12 hours, digoxin and metoprolol - telemetry #Non-insulin dependent type II diabetes mellitus with hyperglycemiastable - hemoglobin A1c: Unknown - home regimen: Glipizide 10 mg twice daily & metformin 1000 mg twice daily - continue SSI + accuchecks - blood glucose goal 140-180 while inpatient - continue to monitor #Hyperlipidemia #Hypertension - continue atorvastatin - SBP goal <160 and DBP goal <90 while inpatient - continue to monitor #Morbid obesity #Weight loss counseling #Exercise counseling - BMI 48.8 - Counseled patient on the importance of weight loss, incorporating exercise, and dietary changes (lean meats, fresh fruits and vegetables, and water intake). Patient expresses understanding. - Time: +15 min #Advanced care planning -Disease education conducted, care plan discussed, diagnoses discussed, prognosis discussed, and patient acknowledges understanding with care plan -Time: +30 min History Interval history: No acute events overnight. Patient improvement in his breathing and palpitations. He has no acute complaints at this time. Hospitalist Physical - Physical exam Narrative exam: GENERAL: Well-developed well-nourished. In no acute distress. HEENT: Nasal cannula in place at 2 L/min NECK: Supple. CHEST/LUNGS: Decreased breath sound bilaterally on supplemental oxygen. HEART/CARDIOVASCULAR: RRR. No murmur, rubs or gallops appreciated. ABDOMEN: +BS. NT/ND. SKIN: No rashes noted. NEURO: No focal motor deficit. Follows all commands. MUSCULOSKELETAL: No joint effusion EXTREMITIES: No cyanosis or clubbing. 1+ edema to the knees. PSYCH: Cooperative. - Constitutional Vitals: Temp Pulse Resp BP Pulse Ox 98.1 F 99 H 18 143/110 97 12/31/21 07:25 12/31/21 07:25 12/31/21 07:25 12/31/21 07:25 12/31/21 07:25 General appearance: Present: no acute distress, well-nourished HEART Score - HEART Score Troponin: Troponin T 0.023 ng/mL (0.00-0.029) 12/29/21 15:32 Results - Labs CBC & Chem 7: 12/29/21 11:34 12/30/21 05:36 Labs: Laboratory Last Values WBC 7.5 K/mm3 (4.5-11.0) 12/29/21 11:34 RBC 3.97 M/mm3 (3.65-5.03) 12/29/21 11:34 Hgb 11.5 gm/dl (11.8-15.2) L 12/29/21 11:34 Hct 36.6 % (35.5-45.6) 12/29/21 11:34 MCV 92 fl (84-94) 12/29/21 11:34 MCH 29 pg (28-32) 12/29/21 11:34 MCHC 31 % (32-34) L 12/29/21 11:34 RDW 16.0 % (13.2-15.2) H 12/29/21 11:34 Plt Count 267 K/mm3 (140-440) 12/29/21 11:34 Lymph % (Auto) 24.2 % (13.4-35.0) 12/29/21 11:34 Piatt % (Auto) 12.5 % (0.0-7.3) H 12/29/21 11:34 Eos % (Auto) 6.8 % (0.0-4.3) H 12/29/21 11:34 Baso % (Auto) 1.2 % (0.0-1.8) 12/29/21 11:34 Lymph # (Auto) 1.8 K/mm3 (1.2-5.4) 12/29/21 11:34 Piatt # (Auto) 0.9 K/mm3 (0.0-0.8) H 12/29/21 11:34 Eos # (Auto) 0.5 K/mm3 (0.0-0.4) H 12/29/21 11:34 Baso # (Auto) 0.1 K/mm3 (0.0-0.1) 12/29/21 11:34 Seg Neutrophils % 55.3 % (40.0-70.0) 12/29/21 11:34 Seg Neutrophils # 4.1 K/mm3 (1.8-7.7) 12/29/21 11:34 PT 17.6 Sec. (12.2-14.9) H 12/29/21 11:34 INR 1.29 (0.87-1.13) H 12/29/21 11:34 Sodium 141 mmol/L (137-145) 12/30/21 05:36 Potassium 4.7 mmol/L (3.6-5.0) 12/30/21 05:36 Chloride 105.4 mmol/L (98-107) 12/30/21 05:36 Carbon Dioxide 26 mmol/L (22-30) 12/30/21 05:36 Anion Gap 14 mmol/L 12/30/21 05:36 BUN 18 mg/dL (9-20) 12/30/21 05:36 Creatinine 0.9 mg/dL (0.8-1.3) 12/30/21 05:36 Estimated GFR > 60 ml/min 12/30/21 05:36 BUN/Creatinine Ratio 20 % 12/30/21 05:36 Glucose 111 mg/dL (75-100) H 12/30/21 05:36 POC Glucose 153 mg/dL (70-105) H 12/31/21 07:21 Calcium 9.1 mg/dL (8.4-10.2) 12/30/21 05:36 Total Bilirubin 0.90 mg/dL (0.1-1.2) 12/29/21 11:34 AST 24 units/L (5-40) 12/29/21 11:34 ALT 14 units/L (7-56) 12/29/21 11:34 Alkaline Phosphatase 109 units/L (35-129) 12/29/21 11:34 Troponin T 0.023 ng/mL (0.00-0.029) 12/29/21 15:32 NT-Pro-B Natriuret Pep 4380 pg/mL (0-900) H 12/29/21 11:34 Total Protein 7.8 g/dL (6.3-8.2) 12/29/21 11:34 Albumin 3.8 g/dL (3.9-5) L 12/29/21 11:34 Albumin/Globulin Ratio 1.0 % 12/29/21 11:34 Oconnor/IV: Voiding Method Urinal Active Medications - Current Medications Current Medications: Generic Name Dose Route Start Last Admin Trade Name Freq PRN Reason Stop Dose Admin Acetaminophen 650 mg 12/29/21 23:47 Acetaminophen 325 Mg Tab PO Q4H PRN Pain MILD(1-3)/Fever >100.5/BERUMEN Apixaban 5 mg 12/30/21 10:00 12/30/21 21:17 Apixaban 5 Mg Tab PO 5 mg Q12HR IMANI Administration Atorvastatin Calcium 20 mg 12/30/21 22:00 12/30/21 21:17 Atorvastatin 40 Mg Tab PO 20 mg QHS IMANI Administration Dextrose 0 ml 12/29/21 23:47 Dextrose 50% In Water (25gm) 50 Ml Syringe IV Q30MIN PRN Hypoglycemia Protocol Digoxin 0.125 mg 12/30/21 17:00 12/30/21 17:01 Digoxin 0.125 Mg Tab PO 0.125 mg DAILY@1700 IMANI Administration Furosemide 40 mg 12/30/21 06:00 12/31/21 05:44 Furosemide 40 Mg/4 Ml Inj IV 40 mg BID@0600,1800 IMANI Administration Insulin Human Lispro 0 unit 12/30/21 07:30 12/30/21 21:17 Insulin Lispro 100 Unit/Ml SUB-Q Not Given ACHS IMANI Protocol Magnesium Hydroxide 30 ml 12/29/21 23:47 Magnesium Hydroxide (Mom) Oral Liqd Udc PO Q4H PRN Constipation Metoprolol Tartrate 100 mg 12/30/21 14:00 12/30/21 21:18 Metoprolol Tartrate 100 Mg Tab PO 100 mg TID IMANI Administration Morphine Sulfate 2 mg 12/29/21 23:47 Morphine 2 Mg/1 Ml Inj IV Q4H PRN Pain, Moderate (4-6) Morphine Sulfate 4 mg 12/29/21 23:47 Morphine 4 Mg/1 Ml Inj IV Q4H PRN Pain , Severe (7-10) Morphine Sulfate 2 mg 12/29/21 23:47 Morphine 2 Mg/1 Ml Inj IV Q5MIN PRN Chest Pain unrelieved by NTG Nitroglycerin 0.4 mg 12/29/21 23:47 Nitroglycerin 0.4 Mg Tab Subl SL .Q5MIN PRN Chest Pain Ondansetron HCl 4 mg 12/29/21 23:47 Ondansetron 4 Mg/2 Ml Inj IV Q8H PRN Nausea And Vomiting Sodium Chloride 10 ml 12/30/21 10:00 12/30/21 21:17 Sodium Chloride 0.9% 10 Ml Flush Syringe IV 10 ml BID IMANI Administration Sodium Chloride 10 ml 12/29/21 23:47 12/31/21 05:46 Sodium Chloride 0.9% 10 Ml Flush Syringe IV 10 ml PRN PRN Administration LINE FLUSH Spironolactone 25 mg 12/30/21 10:00 12/30/21 09:41 Spironolactone 25 Mg Tab PO 25 mg QDAY IMANI Administration Nutrition/Malnutrition Assess - Dietary Evaluation Nutrition/Malnutrition Findings: Nutrition Notes Start: 12/30/21 08:07 Freq: Status: Active Protocol: Document 12/30/21 08:07 ARTEM (Rec: 12/30/21 08:16 ARTEM [id number]) Nutrition Notes Need for Assessment generated from: MD Order,Education Initial or Follow up Brief Note Current Diagnosis Coronary Artery Disease, Diabetes,Hypertension Other Pertinent Diagnosis Atrial Fibrilation, GERD, HFrEF. Current Diet Cardiac/Consistent Carbohydrates Diet (since B ). 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 Weight Status Morbidly Obese Subjective/Other Information RD consult for nutrition education assessment. No reports available on Pt's PO intake of meals at the time , will assess at F/U. Pt is on Nasal Cannula, O2 saturation @ 100%, according to Physical Assessment History notes. Pt presents bilateral-LE pitting edema 2+, according to Physical Assessment History notes. Pt still in critical condition , not a candidate for Nutrition Education at the time, will assess feasibility on F/U. Percent of energy/protein needs met: Prescribed Cardiac/Consistent Carbohydrates Diet provides for energy/protein needs (1, 977 Kcal/86 g) during LOS. Nutrition Intervention Follow-Up By: 09/09/22 Additional Comments Nutrition education will be provided at F/U, if feasible. Continue monitoring food tolerance, %PO intake of meals , and BM.
[2021-12-31] MEDS: INSULIN LISPRO 100 UNIT/ML SUB-Q SCH ×4 (09:51→21:47)
[2021-12-31] MEDS: METOPROLOL TARTRATE 100 MG TAB PO SCH (10:02)
[2021-12-31] MEDS: APIXABAN 5 MG TAB PO SCH ×2 (10:02→21:56)
[2021-12-31] MEDS: SPIRONOLACTONE 25 MG TAB PO SCH (10:02)
[2021-12-31] MEDS: METOPROLOL SUCCINATE XL 100 MG TAB PO SCH (10:02)
--- NOTE | 2021-12-31 11:22 | Progress Note ---
Assessment and Plan 61-year-old male with morbid obesity JERMAINE atrial fibrillation with rapid ventricular spots acute systolic heart failure EF 20-25% change beta-wood to Toprol-XL 200 continue low-dose digoxin continue IV Lasix still has some mild edema. Ambulate patient if patient continues to improve possible discharge in the morning. No KARLI or ARB secondary to lower blood pressure. - Patient Problems (1) Chronic atrial fibrillation with rapid ventricular response Current Visit: Yes Status: Acute (2) Acute on chronic HFrEF (heart failure with reduced ejection fraction) Current Visit: No Status: Acute (3) Acute respiratory failure with hypoxia Current Visit: No Status: Acute (4) Hypertension Current Visit: No Status: Chronic Qualifiers: Hypertension type: primary hypertension Qualified Code(s): I10 - Essential (primary) hypertension (5) Obesity hypoventilation syndrome Current Visit: No Status: Chronic (6) Atrial fibrillation Current Visit: No Status: Chronic Qualifiers: Atrial fibrillation type: persistent (not longstanding) Qualified Code(s): I48.19 - Other persistent atrial fibrillation; I48.1 - Persistent atrial fibrillation (7) Cardiomyopathy Current Visit: No Status: Chronic Qualifiers: Cardiomyopathy type: dilated Qualified Code(s): I42.0 - Dilated cardiom yopathy (8) Diabetes Current Visit: No Status: Chronic Qualifiers: Diabetes mellitus type: type 2 Diabetes mellitus jail insulin use: with jail use Diabetes mellitus complication status: without complication Qualified Code(s): E11.9 - Type 2 diabetes mellitus without complications; Z79.4 - nursing home (current) use of insulin (9) HTN (hypertension) Current Visit: No Status: Chronic Qualifiers: Hypertension type: primary hypertension Qualified Code(s): I10 - Essential (primary) hypertension Subjective Date of service: 12/31/21 Principal diagnosis: afib and chf Interval history: Patient shortness of breath is improving. Objective Vital Signs Temp Pulse Pulse Resp BP Pulse Ox 12/31/21 10:00 88 85 100 12/31/21 07:25 98.1 F 99 H 18 143/110 97 12/31/21 03:35 98.0 F 83 19 116/96 97 12/30/21 23:46 98.1 F 81 19 124/89 99 12/30/21 21:18 103 H 117/91 12/30/21 20:43 96 12/30/21 19:32 97.4 F L 82 19 117/91 96 12/30/21 16:13 98.0 F 46 L 18 102/77 100 - Physical Examination General: No Apparent Distress HEENT: Positive: PERRL, Mucus Membranes Moist Neck: Positive: neck supple, trachea midline Cardiac: Positive: Irregularly Regular Lungs: Positive: Normal Breath Sounds Neuro: Positive: Grossly Intact Abdomen: Positive: Soft, Active Bowel Sounds. Negative: Tender, Distended Skin: Positive: Clear Incision: Cardiac Cath Site Musculoskeletal: No Pain, Normal Range of Motion Extremities: Present: normal, +1 Edema - Imaging and Cardiology Echo: report reviewed (09/2021 severe LV dysfunction EF 20 to 25%) - Telemetry EKG Rhythm: Atrial Fibrillation (80-90)
[2021-12-31] MEDS: DIGOXIN 0.125 MG TAB PO SCH (17:09)
[2022-01-01 05:06] LABS: Hematocrit 35.4 % (35.5-45.6); Hemoglobin 11.4 gm/dl (11.8-15.2); Mean Corpuscular HGB Conc 32 % (32-34); Mean Corpuscular Volume 92 fl (84-94); Platelet Count 270 K/mm3 (140-440); Red Blood Count 3.85 M/mm3 (3.65-5.03); Red Cell Distribution Width 15.8 % (13.2-15.2)
[2022-01-01] MEDS: FUROSEMIDE 40 MG/4 ML INJ IV SCH (05:09)
[2022-01-01 05:23] LABS: BUN/Creatinine Ratio 27; Blood Urea Nitrogen 27 mg/dL (9-20); Calcium 9.2 mg/dL (8.4-10.2); Hemolysis Index 5
[2022-01-01 06:19] LABS: Anisocytosis 1+; Basophils % (Manual) 0 % (0.0-1.8); Platelet Estimate Consistent w Auto; Total Cells Counted 100
[2022-01-01] MEDS: INSULIN LISPRO 100 UNIT/ML SUB-Q SCH (07:51)
[2022-01-01 08:53] VITALS: BP 143/107
[2022-01-01] MEDS: APIXABAN 5 MG TAB PO SCH (09:05)
[2022-01-01] MEDS: SPIRONOLACTONE 25 MG TAB PO SCH (09:05)
[2022-01-01] MEDS: METOPROLOL SUCCINATE XL 100 MG TAB PO SCH (09:06)
--- NOTE | 2022-01-01 11:29 | Progress Note ---
Assessment and Plan 61-year-old male with morbid obesity JERMAINE atrial fibrillation with rapid ventricular spots acute systolic heart failure EF 20-25% change beta-wood to Toprol-XL 200 hold KARLI or ARB secondary lower blood pressure. Tolerating Lasix 40 mg Aldactone and Lipitor 20 mg. A. fib is controlled is currently compensated may be discharged from a cardiovascular point of view reviewed medication with the patient in detail - Patient Problems (1) Chronic atrial fibrillation with rapid ventricular response Current Visit: Yes Status: Acute (2) Acute on chronic HFrEF (heart failure with reduced ejection fraction) Current Visit: No Status: Acute (3) Acute respiratory failure with hypoxia Current Visit: No Status: Acute (4) Hypertension Current Visit: No Status: Chronic Qualifiers: Hypertension type: primary hypertension Qualified Code(s): I10 - Essential (primary) hypertension (5) Obesity hypoventilation syndrome Current Visit: No Status: Chronic (6) Atrial fibrillation Current Visit: No Status: Chronic Qualifiers: Atrial fibrillation type: persistent (not longstanding) Qualified Code(s): I48.19 - Other persistent atrial fibrillation; I48.1 - Persistent atrial fibrillation (7) Cardiomyopathy Current Visit: No Status: Chronic Qualifiers: Cardiomyopathy type: dilated Qualified Code(s): I42.0 - Dilated cardiomyopathy (8) Diabetes Current Visit: No Status: Chronic Qualifiers: Diabetes mellitus type: type 2 Diabetes mellitus group home insulin use: with group home use Diabetes mellitus complication status: without complication Qualified Code(s): E11.9 - Type 2 diabetes mellitus without complications; 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 (9) HTN (hypertension) Current Visit: No Status: Chronic Qualifiers: Hypertension type: primary hypertension Qualified Code(s): I10 - Essential (primary) hypertension Subjective Date of service: 01/01/22 Principal diagnosis: afib and chf Interval history: sob has improved Objective Vital Signs Temp Pulse Pulse Resp BP Pulse Ox 01/01/22 08:06 97.3 F L 90 20 143/107 98 01/01/22 03:45 98.3 F 68 18 126/91 100 01/01/22 00:30 98.5 F 72 19 120/90 97 12/31/21 22:00 85 100 12/31/21 20:11 98.0 F 100 H 20 135/94 98 12/31/21 11:35 98.3 F 77 18 143/91 100 - Physical Examination General: No Apparent Distress HEENT: Positive: PERRL, Mucus Membranes Moist Neck: Positive: neck supple, trachea midline Cardiac: Positive: Irregularly Regular Lungs: Positive: clear to auscultation Neuro: Positive: Grossly Intact Abdomen: Positive: Soft, Active Bowel Sounds. Negative: Tender, Distended Skin: Positive: Clear Incision: Cardiac Cath Site Musculoskeletal: No Pain, Normal Range of Motion Extremities: Present: normal. Absent: edema - Labs and Meds CBC 01/01/22 Range/Units 04:44 WBC 8.0 (4.5-11.0) K/mm3 RBC 3.85 (3.65-5.03) M/mm3 Hgb 11.4 L (11.8-15.2) gm/dl Hct 35.4 L (35.5-45.6) % Plt Count 270 (140-440) K/mm3 Comprehensive Metabolic Panel 01/01/22 Range/Units 04:44 Sodium 139 (137-145) mmol/L Potassium 4.2 (3.6-5.0) mmol/L Chloride 101.8 (98-107) mmol/L Carbon Dioxide 28 (22-30) mmol/L BUN 27 H (9-20) mg/dL Creatinine 1.0 (0.8-1.3) mg/dL Glucose 118 H (75-100) mg/dL Calcium 9.2 (8.4-10.2) mg/dL - Imaging and Cardiology Echo: report reviewed (09/2021 severe LV dysfunction EF 20 to 25%) - Telemetry EKG Rhythm: Atrial Fibrillation (in 80's)
--- NOTE | 2022-01-01 12:05 | Discharge Summary ---
Providers - Providers Date of Admission: 12/29/21 23:47 Date of discharge: 01/01/22 Attending physician: GARRETT STODDARD MD 12/29/21 23:47 Consult to Physician [CONS] Routine Comment: Consulting Provider: AMBER ROGERS Physician Instructions: Reason For Exam: chf Exac 12/29/21 23:48 Consult to Dietitian/Nutrition [CONS] Routine Physician Instructions: Reason For Exam: Reason for Consult: Diet education Primary care physician: ROBERT LIMA Hospitalization Condition: Stable Disposition: 30 STILL A PATIENT Exam - Constitutional Vitals: Temp Pulse Resp BP Pulse Ox 97.3 F L 90 20 143/107 98 01/01/22 08:06 01/01/22 08:06 01/01/22 08:06 01/01/22 08:06 01/01/22 08:06 Plan Care Plan Goals: Please follow-up with your primary care provider and visual display manager after discharge. Please start taking all medications as they are prescribed to you. Follow up with: ROBERT LIMA MD [Primary Care Provider] - 7 Days Prescriptions: Spironolactone [Aldactone] 25 mg PO QDAY 90 Days #90 tablet Digoxin [Lanoxin] 0.125 mg PO DAILY@1700 90 Days #90 tablet Furosemide [Lasix TAB] 40 mg PO DAILY 90 Days #90 tab Metoprolol Xl [Metoprolol SUCCINATE ER TAB] 200 mg PO QDAY 90 Days #180 tablet
[2022-01-02] MEDS ORDERED: FUROSEMIDE 40 MG TAB PO SCH (10:00)
== END 2022-01-01 13:31 | disposition home or self-care (01) | DRG 291 ==
LOC: ED 10:27 → 4A 23:47
PROVIDERS: ADMIT Internal Medicine Geriatric Medicine; ATTEND Student in an Organized Health Care Education/Training Program
DX: I11.0 Hypertensive heart disease with heart failure (principal); I50.23 Acute on chronic systolic (congestive) heart failure; J96.01 Acute respiratory failure with hypoxia; I48.20 Chronic atrial fibrillation, unspecified; Z68.41 Body mass index [BMI] 40.0-44.9, adult; E66.2 Morbid (severe) obesity with alveolar hypoventilation; I42.8 Other cardiomyopathies; I42.0 Dilated cardiomyopathy; I48.0 Paroxysmal atrial fibrillation; K21.9 Gastro-esophageal reflux disease without esophagitis; I25.10 Atherosclerotic heart disease of native coronary artery without angina pectoris; J45.909 Unspecified asthma, uncomplicated; E11.65 Type 2 diabetes mellitus with hyperglycemia; E78.5 Hyperlipidemia, unspecified; Z71.3 Dietary counseling and surveillance; Z79.84 Long term (current) use of oral hypoglycemic drugs; Z79.82 Long term (current) use of aspirin
CPT/HCPCS: 36415; 71046; 80048; 80053; 82962; 83880; 84484; 85007; 85025; 85610; 93005; G0378; J1940